=== PATIENT | female | born 1945 | race African-American/Black ===

== ENCOUNTER 2019-01-09 06:51 | Day surgery (SDC) | payer OTHER ==
[2019-01-08 20:04] VITALS: BMI 25.2
[2019-01-09 07:08] LABS: BASO % 0.5 % (0-2.0); EOS % 2.4 % (0-4.5); HEMATOCRIT 25.9 % (32.4-45.2); HEMOGLOBIN 8.6 GM/dL (10.7-15.3); LYMPH % 16.2 % (8-40); MCH 27.9 pg (25.7-33.7); MEAN CELL VOLUME 84.7 fl (80-96); MEAN PLT VOLUME 7.5 fl (7.5-11.1); MONO % 11.7 % (3.8-10.2); NEUT % 69.2 % (42.8-82.8); PLATELET COUNT 256 K/MM3 (134-434); RBC 3.06 M/mm3 (3.60-5.2); RDW 15.1 % (11.6-15.6); WHITE BLOOD COUNT 7.9 K/mm3 (4.0-10.0)
[2019-01-09 07:24] LABS: INR 1.07 (0.83-1.09); PROTHROMBIN TIME (PATIENT) 12.6 SEC (9.7-13.0)
[2019-01-09] MEDS ORDERED: PORTA CATH FLUSH 10 ML IVPUSH PRN (09:49)
[2019-01-09] MEDS ORDERED: MIDAZOLAM HCL 2 MG/2 ML SINGLE DOSE VIAL ONE (09:54)
[2019-01-09 12:12] VITALS: TEMP 98.1
[2019-01-09 13:08] VITALS: BP 119/67; PULSE 67
== END 2019-01-09 12:45 | disposition home or self-care (01) ==
LOC: JRADIR 06:51
PROVIDERS: ATTEND Internal Medicine Hematology & Oncology
PROC: 02HV33Z Insertion of Infusion Device into Superior Vena Cava, Percutaneous Approach (ICD-10-PCS; principal; 2019-01-09)
PROC: B518ZZA Fluoroscopy of Superior Vena Cava, Guidance (ICD-10-PCS; 2019-01-09)
DX: C20 Malignant neoplasm of rectum (principal)
CPT/HCPCS: 36561; 77001; C1788; 36415; 85025; 85610

== ENCOUNTER 2019-01-11 07:14 | Day surgery (SDC) | payer OTHER ==
[2019-01-11] MEDS ORDERED: DEXAMETHASONE SODIUM PHOSPHATE 12 MG in SODIUM CHLORIDE 50 ML IVPB ONE (09:00)
[2019-01-11] MEDS ORDERED: PALONOSETRON HCL 0.25 MG/5 ML VIAL IVPUSH ONE (09:00)
[2019-01-11] MEDS ORDERED: DEXTROSE 5% IV ONE (09:30)
[2019-01-11] MEDS ORDERED: OXALIPLATIN IV ONE (09:30)
[2019-01-11] MEDS ORDERED: WATER IV ONE (09:30)
[2019-01-11 09:42] LABS: BASO % 0.5 % (0-2.0); EOS % 2.1 % (0-4.5); HEMOGLOBIN 8.3 GM/dL (10.7-15.3); LYMPH % 14.5 % (8-40); MCH 28.2 pg (25.7-33.7); MCHC 33.1 g/dl (32.0-36.0); MEAN CELL VOLUME 85.2 fl (80-96); MEAN PLT VOLUME 8.7 fl (7.5-11.1); MONO % 8.6 % (3.8-10.2); NEUT % 74.3 % (42.8-82.8); PLATELET COUNT 288 K/MM3 (134-434); RBC 2.94 M/mm3 (3.60-5.2); RDW 15.4 % (11.6-15.6); WHITE BLOOD COUNT 6.6 K/mm3 (4.0-10.0)
[2019-01-11 10:10] LABS: ALBUMIN 3.1 g/dl (3.4-5.0); BILIRUBIN,DIRECT 0.2 mg/dL (0.0-0.2); BILIRUBIN,TOTAL 0.4 mg/dL (0.2-1); CALCIUM 9.1 mg/dL (8.5-10.1); MAGNESIUM 1.4 mg/dL (1.8-2.4); TOT PROT 6.9 g/dl (6.4-8.2)
[2019-01-11] MEDS ORDERED: MAGNESIUM SULF 50% (8.12 MEQ/2 ML-1 GM VIAL) IVPB ONE (11:00)
[2019-01-11 18:20] VITALS: PULSE 59; TEMP 97.8
[2019-01-11 18:23] VITALS: BP 146/78
[2019-01-11] MEDS ORDERED: PORTA CATH FLUSH 10 ML IVPUSH ONE (18:23)
== END 2019-01-11 19:35 | disposition home or self-care (01) ==
LOC: JONCCHEMO 07:14 → J7W 10:13 → JONCCHEMO 19:35
PROVIDERS: ATTEND Internal Medicine Hematology & Oncology
DX: Z51.11 Encounter for antineoplastic chemotherapy (principal); C20 Malignant neoplasm of rectum
CPT/HCPCS: 36415; 36430; 80053; 80076; 83735; 85025; 86850; 86900; 86901; 86922; 96367; 96375; 96413; 96415; 96417; J2469; J9263; P9038; P9058

== ENCOUNTER 2019-01-24 07:14 | Day surgery (SDC) | payer OTHER ==
[2019-01-24] MEDS ORDERED: TBO-FILGRASTIM 480 MCG/0.8 ML DISP.SYRIN SQ ONE (10:00)
[2019-01-24] MEDS ORDERED: CYANOCOBALAMIN (VITAMIN B-12) 1000 MCG/1 ML VIAL IM ONE (10:00)
[2019-01-24] MEDS ORDERED: FERRIC CARBOXYMALTOSE 750 MG in SODIUM CHLORIDE 250 ML IVPB ONE (10:00)
[2019-01-24] MEDS ORDERED: EPOETIN ALFA 20,000 UNIT/1 ML VIAL SQ ONE (10:00)
[2019-01-24 10:24] LABS: BASO % 0.7 % (0-2.0); EOS % 1.9 % (0-4.5); HEMATOCRIT 28.1 % (32.4-45.2); HEMOGLOBIN 9.2 GM/dL (10.7-15.3); LYMPH % 16.4 % (8-40); MCH 28.1 pg (25.7-33.7); MCHC 32.6 g/dl (32.0-36.0); MEAN CELL VOLUME 86.2 fl (80-96); MONO % 9.5 % (3.8-10.2); NEUT % 71.5 % (42.8-82.8); PLATELET COUNT 213 K/MM3 (134-434); RBC 3.26 M/mm3 (3.60-5.2); RDW 14.6 % (11.6-15.6); WHITE BLOOD COUNT 6.1 K/mm3 (4.0-10.0)
[2019-01-24 11:40] LABS: BILIRUBIN,TOTAL 0.4 mg/dL (0.2-1); CALCIUM 8.9 mg/dL (8.5-10.1); MAGNESIUM 1.7 mg/dL (1.8-2.4); POTASSIUM 4.2 mmol/L (3.5-5.1); TOT PROT 6.8 g/dl (6.4-8.2)
[2019-01-24 16:50] VITALS: TEMP 98
[2019-01-24] MEDS ORDERED: PORTA CATH FLUSH 10 ML IVPUSH ONE (16:50)
[2019-01-24 16:51] VITALS: BP 136/67; PULSE 62
== END 2019-01-24 13:30 | disposition home or self-care (01) ==
LOC: JONCNONCHE 07:14 → J7W 11:32 → JONCNONCHE 13:30
PROVIDERS: ATTEND Internal Medicine Hematology & Oncology
PROC: 3E033GC Introduction of Other Therapeutic Substance into Peripheral Vein, Percutaneous Approach (ICD-10-PCS; principal; 2019-01-24)
DX: D50.9 Iron deficiency anemia, unspecified (principal); E11.9 Type 2 diabetes mellitus without complications; I10 Essential (primary) hypertension
CPT/HCPCS: 36415; 80053; 83735; 85025; 96365; 96372; J1439

== ENCOUNTER 2019-01-31 07:06 | Day surgery (SDC) | payer OTHER ==
[2019-01-31] MEDS ORDERED: FERRIC CARBOXYMALTOSE 750 MG in SODIUM CHLORIDE 250 ML IVPB ONE (10:00)
[2019-01-31] MEDS ORDERED: CYANOCOBALAMIN (VITAMIN B-12) 1000 MCG/1 ML VIAL IM ONE (10:00)
[2019-01-31 10:07] LABS: BASO % 0.9 % (0-2.0); HEMOGLOBIN 9.4 GM/dL (10.7-15.3); LYMPH % 23.9 % (8-40); MCHC 32.3 g/dl (32.0-36.0); MEAN CELL VOLUME 89.6 fl (80-96); MEAN PLT VOLUME 7.6 fl (7.5-11.1); MONO % 16.2 % (3.8-10.2); PLATELET COUNT 193 K/MM3 (134-434); RBC 3.23 M/mm3 (3.60-5.2); RDW 15.8 % (11.6-15.6); WHITE BLOOD COUNT 5.2 K/mm3 (4.0-10.0)
[2019-01-31] MEDS ORDERED: DEXAMETHASONE SODIUM PHOSPHATE 12 MG in SODIUM CHLORIDE 50 ML IVPB ONE (11:00)
[2019-01-31] MEDS ORDERED: PALONOSETRON HCL 0.25 MG/5 ML VIAL IVPUSH ONE (11:00)
[2019-01-31] MEDS ORDERED: DEXTROSE 5% IV ONE (11:30)
[2019-01-31] MEDS ORDERED: WATER IV ONE (11:30)
[2019-01-31] MEDS ORDERED: OXALIPLATIN IV ONE (11:30)
[2019-01-31 12:52] LABS: CALCIUM 8.7 mg/dL (8.5-10.1); MAGNESIUM 1.7 mg/dL (1.8-2.4); POTASSIUM 3.8 mmol/L (3.5-5.1)
[2019-01-31 12:53] LABS: ALBUMIN 3.1 g/dl (3.4-5.0); BILIRUBIN,DIRECT 0.2 mg/dL (0.0-0.2); TOT PROT 6.7 g/dl (6.4-8.2)
[2019-01-31 13:25] LABS: BILIRUBIN,TOTAL 0.5 mg/dL (0.2-1)
[2019-01-31] MEDS ORDERED: MAGNESIUM OXIDE 400 MG TABLET (FP) PO ONE (16:15)
[2019-01-31 16:40] VITALS: TEMP 97.7
[2019-01-31] MEDS ORDERED: PORTA CATH FLUSH 10 ML IVPUSH ONE (16:40)
[2019-01-31 16:41] VITALS: BP 133/46; PULSE 50
== END 2019-01-31 18:20 | disposition home or self-care (01) ==
LOC: JONCCHEMO 07:06 → J7W 11:20 → JONCCHEMO 18:20
PROVIDERS: ATTEND Internal Medicine Hematology & Oncology
PROC: 3E04305 Introduction of Other Antineoplastic into Central Vein, Percutaneous Approach (ICD-10-PCS; principal; 2019-01-31)
PROC: 3E0 Administration, Physiological Systems and Anatomical Regions, Introduction (ICD-10-PCS; 2019-01-31)
PROC: 3E0407Z Introduction of Electrolytic and Water Balance Substance into Central Vein, Open Approach (ICD-10-PCS; 2019-01-31)
PROC: 3E023GC Introduction of Other Therapeutic Substance into Muscle, Percutaneous Approach (ICD-10-PCS; 2019-01-31)
DX: Z51.11 Encounter for antineoplastic chemotherapy (principal); C20 Malignant neoplasm of rectum; I10 Essential (primary) hypertension; E78.5 Hyperlipidemia, unspecified; E11.9 Type 2 diabetes mellitus without complications
CPT/HCPCS: 36415; 80048; 80076; 83735; 85025; 96375; 96413; 96415; 96417; J1439; J2469; J9263

== ENCOUNTER 2019-02-21 07:16 | Day surgery (SDC) | payer OTHER ==
[2019-02-21] MEDS ORDERED: DEXAMETHASONE SODIUM PHOSPHATE 12 MG in SODIUM CHLORIDE 50 ML IVPB ONE (09:00)
[2019-02-21] MEDS ORDERED: PALONOSETRON HCL 0.25 MG/5 ML VIAL IVPUSH ONE (09:00)
[2019-02-21] MEDS ORDERED: WATER IV ONE (09:30)
[2019-02-21] MEDS ORDERED: OXALIPLATIN IV ONE (09:30)
[2019-02-21] MEDS ORDERED: DEXTROSE 5% IV ONE (09:30)
[2019-02-21 09:57] LABS: BASO % 0.8 % (0-2.0); EOS % 2.5 % (0-4.5); HEMATOCRIT 28.6 % (32.4-45.2); HEMOGLOBIN 9.6 GM/dL (10.7-15.3); LYMPH % 24.7 % (8-40); MCH 31.4 pg (25.7-33.7); MCHC 33.5 g/dl (32.0-36.0); MEAN CELL VOLUME 93.8 fl (80-96); MEAN PLT VOLUME 8.2 fl (7.5-11.1); MONO % 21.2 % (3.8-10.2); NEUT % 50.8 % (42.8-82.8); PLATELET COUNT 114 K/MM3 (134-434); RBC 3.05 M/mm3 (3.60-5.2); RDW 25.6 % (11.6-15.6); WHITE BLOOD COUNT 3.4 K/mm3 (4.0-10.0)
[2019-02-21 10:28] LABS: BILIRUBIN,DIRECT 0.2 mg/dL (0.0-0.2); BILIRUBIN,TOTAL 0.5 mg/dL (0.2-1); BLOOD UREA NITROGEN 14.2 mg/dL (7-18); CALCIUM 8.3 mg/dL (8.5-10.1); MAGNESIUM 1.8 mg/dL (1.8-2.4); TOT PROT 6.3 g/dl (6.4-8.2)
[2019-02-21 12:04] LABS: ANISOCYTOSIS 2+; MACROCYTOSIS 1+; PLATELET ESTIMATE DECREASED
[2019-02-21 18:17] VITALS: TEMP 98.8
[2019-02-21 18:23] VITALS: BP 156/73; PULSE 53
[2019-02-21] MEDS ORDERED: PORTA CATH FLUSH 10 ML IVPUSH ONE (18:23)
== END 2019-02-21 14:30 | disposition home or self-care (01) ==
LOC: JONCCHEMO 07:16 → J7W 10:06 → JONCCHEMO 14:30
PROVIDERS: ATTEND Internal Medicine Hematology & Oncology
DX: Z51.11 Encounter for antineoplastic chemotherapy (principal); C20 Malignant neoplasm of rectum
CPT/HCPCS: 36415; 80048; 80076; 83735; 85025; 96375; 96413; 96415; J2469; J9263

== ENCOUNTER → 2019-03-14 | Day surgery (SDC) | payer OTHER ==
[~2019-03-14] MED LIST: DEXAMETHASONE SODIUM PHOSPHATE 12 MG in SODIUM CHLORIDE 50 ML IVPB ONE; DEXTROSE 5% IV ONE; OXALIPLATIN IV ONE; PALONOSETRON HCL 0.25 MG/5 ML VIAL IVPUSH ONE; WATER IV ONE
[2019-03-14 08:52] LABS: BASO % 0.8 % (0-2.0); HEMATOCRIT 31.1 % (32.4-45.2); HEMOGLOBIN 10.3 GM/dL (10.7-15.3); LYMPH % 25.6 % (8-40); MCH 32.7 pg (25.7-33.7); MCHC 33.2 g/dl (32.0-36.0); MEAN CELL VOLUME 98.7 fl (80-96); MEAN PLT VOLUME 7.7 fl (7.5-11.1); MONO % 23.9 % (3.8-10.2); NEUT % 46.7 % (42.8-82.8); PLATELET COUNT 99 K/MM3 (134-434); RBC 3.15 M/mm3 (3.60-5.2); RDW 28.5 % (11.6-15.6); WHITE BLOOD COUNT 2.9 K/mm3 (4.0-10.0)
[2019-03-14 09:20] LABS: BILIRUBIN,DIRECT 0.3 mg/dL (0.0-0.2); BILIRUBIN,TOTAL 0.7 mg/dL (0.2-1); BLOOD UREA NITROGEN 11.5 mg/dL (7-18); CALCIUM 8.4 mg/dL (8.5-10.1); CREATININE 1.1 mg/dL (0.55-1.3); POTASSIUM 3.8 mmol/L (3.5-5.1); TOT PROT 6.5 g/dl (6.4-8.2)
[2019-03-14 12:47] LABS: ANISOCYTOSIS 2+; MACROCYTOSIS 1+; OVALOCYTE 1+; PLATELET ESTIMATE DECREASED
== END | disposition home or self-care (01) ==
LOC: JONCCHEMO 07:11
PROVIDERS: ATTEND Internal Medicine Hematology & Oncology
DX: Z53.8 Procedure and treatment not carried out for other reasons (principal)
CPT/HCPCS: 36415; 80048; 80076; 83735; 85025

== ENCOUNTER 2019-03-21 07:22 | Day surgery (SDC) | payer OTHER ==
[2019-03-21 09:14] LABS: BASO % 0.4 % (0-2.0); EOS % 2.6 % (0-4.5); HEMATOCRIT 31.7 % (32.4-45.2); HEMOGLOBIN 10.6 GM/dL (10.7-15.3); LYMPH % 22.2 % (8-40); MCH 33.2 pg (25.7-33.7); MCHC 33.5 g/dl (32.0-36.0); MEAN PLT VOLUME 8.9 fl (7.5-11.1); MONO % 19.7 % (3.8-10.2); NEUT % 55.1 % (42.8-82.8); PLATELET COUNT 84 K/MM3 (134-434); RDW 27.1 % (11.6-15.6); WHITE BLOOD COUNT 3.9 K/mm3 (4.0-10.0)
[2019-03-21 09:31] LABS: BILIRUBIN,DIRECT 0.3 mg/dL (0.0-0.2); BILIRUBIN,TOTAL 0.8 mg/dL (0.2-1); BLOOD UREA NITROGEN 12.2 mg/dL (7-18); CALCIUM 8.6 mg/dL (8.5-10.1); MAGNESIUM 1.9 mg/dL (1.8-2.4); POTASSIUM 3.9 mmol/L (3.5-5.1); TOT PROT 6.7 g/dl (6.4-8.2)
[2019-03-21] MEDS ORDERED: DEXAMETHASONE SODIUM PHOSPHATE 12 MG in SODIUM CHLORIDE 50 ML IVPB ONE (10:00)
[2019-03-21] MEDS ORDERED: amLODIPine BESYLATE 5 MG TABLET (FP) PO ONE (10:00)
[2019-03-21] MEDS ORDERED: PALONOSETRON HCL 0.25 MG/5 ML VIAL IVPUSH ONE (10:00)
[2019-03-21] MEDS ORDERED: OXALIPLATIN IV ONE (10:30)
[2019-03-21] MEDS ORDERED: WATER IV ONE (10:30)
[2019-03-21] MEDS ORDERED: DEXTROSE 5% IV ONE (10:30)
[2019-03-21 13:43] LABS: ANISOCYTOSIS 1+; MACROCYTOSIS 1+; PLATELET ESTIMATE DECREASED
[2019-03-21 14:44] VITALS: TEMP 97.9
[2019-03-21] MEDS ORDERED: PORTA CATH FLUSH 10 ML IVPUSH ONE (14:44)
[2019-03-21 14:45] VITALS: BP 156/60; PULSE 55
== END 2019-03-21 13:30 | disposition home or self-care (01) ==
LOC: JONCCHEMO 07:22 → J7W 09:51 → JONCCHEMO 13:30
PROVIDERS: ATTEND Internal Medicine Hematology & Oncology
DX: Z51.11 Encounter for antineoplastic chemotherapy (principal); C20 Malignant neoplasm of rectum
CPT/HCPCS: 36415; 80048; 80076; 83735; 85025; 96375; 96413; 96415; J2469; J9263

== ENCOUNTER 2019-04-11 07:16 | Day surgery (SDC) | payer OTHER ==
[2019-04-11 09:20] LABS: BASO % 0.5 % (0-2.0); EOS % 2.6 % (0-4.5); HEMATOCRIT 33.3 % (32.4-45.2); HEMOGLOBIN 11.1 GM/dL (10.7-15.3); LYMPH % 26.3 % (8-40); MCH 33.9 pg (25.7-33.7); MCHC 33.3 g/dl (32.0-36.0); MEAN CELL VOLUME 101.9 fl (80-96); MEAN PLT VOLUME 7.2 fl (7.5-11.1); MONO % 19.1 % (3.8-10.2); NEUT % 51.5 % (42.8-82.8); PLATELET COUNT 93 K/MM3 (134-434); RBC 3.26 M/mm3 (3.60-5.2); RDW 25.2 % (11.6-15.6); WHITE BLOOD COUNT 3.3 K/mm3 (4.0-10.0)
[2019-04-11] MEDS ORDERED: PALONOSETRON HCL 0.25 MG/5 ML VIAL IVPUSH ONE (09:30)
[2019-04-11] MEDS ORDERED: DEXAMETHASONE SODIUM PHOSPHATE 12 MG in SODIUM CHLORIDE 50 ML IVPB ONE (09:30)
[2019-04-11 09:46] LABS: BLOOD UREA NITROGEN 13.8 mg/dL (7-18); CALCIUM 8.8 mg/dL (8.5-10.1); CREATININE 1.1 mg/dL (0.55-1.3); MAGNESIUM 1.7 mg/dL (1.8-2.4); POTASSIUM 3.8 mmol/L (3.5-5.1)
[2019-04-11] MEDS ORDERED: OXALIPLATIN IV ONE ×2 (10:00→11:00)
[2019-04-11] MEDS ORDERED: DEXTROSE 5% IV ONE ×2 (10:00→11:00)
[2019-04-11] MEDS ORDERED: WATER IV ONE ×2 (10:00→11:00)
[2019-04-11] MEDS ORDERED: MAGNESIUM SULF 50% (8.12 MEQ/2 ML-1 GM VIAL) IVPB ONE (10:45)
[2019-04-11] MEDS ORDERED: CYANOCOBALAMIN (VITAMIN B-12) 1000 MCG/1 ML VIAL IM ONE (10:45)
[2019-04-11 12:27] LABS: ANISOCYTOSIS 2+; MACROCYTOSIS 1+; PLATELET ESTIMATE DECREASED
[2019-04-11] MEDS ORDERED: PORTA CATH FLUSH 10 ML IVPUSH ONE (15:19)
[2019-04-11 15:20] VITALS: TEMP 97.7
[2019-04-26 19:10] VITALS: BP 152/75; PULSE 58
== END 2019-04-11 15:23 | disposition home or self-care (01) ==
LOC: JONCCHEMO 07:16 → J7W 10:22 → JONCCHEMO 15:23
PROVIDERS: ATTEND Internal Medicine Hematology & Oncology
DX: Z51.11 Encounter for antineoplastic chemotherapy (principal); C20 Malignant neoplasm of rectum
CPT/HCPCS: 36415; 80048; 83735; 85025; 96375; 96413; 96415; 96417; J2469; J9263

== ENCOUNTER 2019-05-02 07:08 | Day surgery (SDC) | payer OTHER ==
[2019-05-02] MEDS ORDERED: PALONOSETRON HCL 0.25 MG/5 ML VIAL IVPUSH ONE (09:30)
[2019-05-02] MEDS ORDERED: DEXAMETHASONE SODIUM PHOSPHATE 12 MG in SODIUM CHLORIDE 50 ML IVPB ONE (09:30)
[2019-05-02 09:54] LABS: BASO % 0.4 % (0-2.0); EOS % 3.3 % (0-4.5); HEMATOCRIT 34.1 % (32.4-45.2); HEMOGLOBIN 11.5 GM/dL (10.7-15.3); LYMPH % 31.3 % (8-40); MCHC 33.8 g/dl (32.0-36.0); MEAN CELL VOLUME 103.6 fl (80-96); MEAN PLT VOLUME 7.9 fl (7.5-11.1); MONO % 17.9 % (3.8-10.2); NEUT % 47.1 % (42.8-82.8); PLATELET COUNT 86 K/MM3 (134-434); RBC 3.29 M/mm3 (3.60-5.2); RDW 20.6 % (11.6-15.6); WHITE BLOOD COUNT 2.7 K/mm3 (4.0-10.0)
[2019-05-02] MEDS ORDERED: OXALIPLATIN 175 MG in DEXTROSE 5%-WATER - 500 ML IV ONE (10:00)
[2019-05-02 10:43] LABS: BILIRUBIN,DIRECT 0.3 mg/dL (0.0-0.2); BLOOD UREA NITROGEN 13.3 mg/dL (7-18); CREATININE 1.1 mg/dL (0.55-1.3); MAGNESIUM 1.8 mg/dL (1.8-2.4); POTASSIUM 3.9 mmol/L (3.5-5.1); TOT PROT 6.9 g/dl (6.4-8.2)
[2019-05-02 10:49] LABS: ANISOCYTOSIS 1+; MACROCYTOSIS 1+; PLATELET ESTIMATE DECREASED
[2019-05-02] MEDS ORDERED: OXALIPLATIN IV ONE ×2 (10:51→11:30)
[2019-05-02] MEDS ORDERED: DEXTROSE 5% IV ONE ×2 (10:51→11:30)
[2019-05-02] MEDS ORDERED: WATER IV ONE ×2 (10:51→11:30)
[2019-05-02] MEDS ORDERED: SODIUM CHLORIDE IVPB ONE (11:15)
[2019-05-02] MEDS ORDERED: DEXAMETHASONE SODIUM PHOSPHATE IVPB ONE (11:15)
[2019-05-02] MEDS ORDERED: DIPHENHYDRAMINE IVPB ONE (11:15)
[2019-05-02 15:28] VITALS: BP 153/82; PULSE 60; TEMP 98
[2019-05-02] MEDS ORDERED: PORTA CATH FLUSH 10 ML IVPUSH ONE (15:28)
== END 2019-05-02 15:40 | disposition home or self-care (01) ==
LOC: JONCCHEMO 07:08 → J7W 11:16 → JONCCHEMO 15:40
PROVIDERS: ATTEND Internal Medicine Hematology & Oncology
DX: Z51.11 Encounter for antineoplastic chemotherapy (principal); C20 Malignant neoplasm of rectum
CPT/HCPCS: 36415; 80048; 80076; 82378; 82607; 82728; 82747; 82784; 83735; 85014; 85025; 96367; 96375; 96413; 96415; J2469; J9263

== ENCOUNTER 2019-05-23 09:04 | Day surgery (SDC) | payer OTHER ==
[2019-05-23] MEDS ORDERED: PALONOSETRON HCL 0.25 MG/5 ML VIAL IVPUSH ONE (10:00)
[2019-05-23] MEDS ORDERED: DEXAMETHASONE SODIUM PHOSPHATE 12 MG in SODIUM CHLORIDE 50 ML IVPB ONE (10:00)
[2019-05-23 10:12] LABS: BASO % 0.3 % (0-2.0); EOS % 2.7 % (0-4.5); HEMATOCRIT 33.7 % (32.4-45.2); HEMOGLOBIN 11.2 GM/dL (10.7-15.3); LYMPH % 30.3 % (8-40); MCH 34.7 pg (25.7-33.7); MCHC 33.4 g/dl (32.0-36.0); MEAN CELL VOLUME 104.2 fl (80-96); MEAN PLT VOLUME 7.8 fl (7.5-11.1); MONO % 19.8 % (3.8-10.2); NEUT % 46.9 % (42.8-82.8); PLATELET COUNT 86 K/MM3 (134-434); RBC 3.23 M/mm3 (3.60-5.2); RDW 18.8 % (11.6-15.6); WHITE BLOOD COUNT 2.8 K/mm3 (4.0-10.0)
[2019-05-23] MEDS ORDERED: DEXTROSE 5% IV ONE (10:30)
[2019-05-23] MEDS ORDERED: WATER IV ONE (10:30)
[2019-05-23] MEDS ORDERED: OXALIPLATIN IV ONE (10:30)
[2019-05-23 10:58] LABS: ALBUMIN 2.8 g/dl (3.4-5.0); BILIRUBIN,DIRECT 0.3 mg/dL (0.0-0.2); BILIRUBIN,TOTAL 0.9 mg/dL (0.2-1); BLOOD UREA NITROGEN 11.8 mg/dL (7-18); CALCIUM 8.9 mg/dL (8.5-10.1); MAGNESIUM 1.9 mg/dL (1.8-2.4); POTASSIUM 3.8 mmol/L (3.5-5.1); TOT PROT 6.7 g/dl (6.4-8.2)
[2019-05-23 16:29] VITALS: BP 146/64; PULSE 46; TEMP 98.1
[2019-05-23] MEDS ORDERED: PORTA CATH FLUSH 10 ML IVPUSH ONE (16:29)
== END 2019-05-23 15:00 | disposition home or self-care (01) ==
LOC: JONCCHEMO 09:04 → J7W 11:16 → JONCCHEMO 15:00
PROVIDERS: ATTEND Internal Medicine Hematology & Oncology
DX: Z51.11 Encounter for antineoplastic chemotherapy (principal); C20 Malignant neoplasm of rectum
CPT/HCPCS: 36415; 80048; 80076; 83735; 85025; 96367; 96375; 96413; 96415; J2469; J9263

== ENCOUNTER 2019-06-13 07:14 | Day surgery (SDC) | payer OTHER ==
[2019-06-13] MEDS ORDERED: DEXAMETHASONE SODIUM PHOSPHATE 12 MG in SODIUM CHLORIDE 50 ML IVPB ONE (09:30)
[2019-06-13] MEDS ORDERED: PALONOSETRON HCL 0.25 MG/5 ML VIAL IVPUSH ONE (09:30)
[2019-06-13] MEDS ORDERED: OXALIPLATIN 100 MG, OXALIPLATIN 30 MG in DEXTROSE 5%-WATER - 500 ML IV ONE (10:00)
[2019-06-13 10:32] LABS: BASO % 0.3 % (0-2.0); EOS % 2.4 % (0-4.5); HEMATOCRIT 33.1 % (32.4-45.2); HEMOGLOBIN 11.1 GM/dL (10.7-15.3); LYMPH % 24.4 % (8-40); MCHC 33.5 g/dl (32.0-36.0); MEAN CELL VOLUME 104.4 fl (80-96); MEAN PLT VOLUME 8.5 fl (7.5-11.1); MONO % 20.2 % (3.8-10.2); NEUT % 52.7 % (42.8-82.8); PLATELET COUNT 93 K/MM3 (134-434); RBC 3.17 M/mm3 (3.60-5.2); RDW 19.4 % (11.6-15.6); WHITE BLOOD COUNT 3.1 K/mm3 (4.0-10.0)
[2019-06-13 11:07] LABS: ALBUMIN 2.7 g/dl (3.4-5.0); BLOOD UREA NITROGEN 13.5 mg/dL (7-18); CALCIUM 8.7 mg/dL (8.5-10.1); MAGNESIUM 1.8 mg/dL (1.8-2.4); TOT PROT 6.6 g/dl (6.4-8.2)
[2019-06-13 13:02] LABS: ANISOCYTOSIS 1+; MACROCYTOSIS 1+; OVALOCYTE 1+; PLATELET ESTIMATE DECREASED
[2019-06-13 15:19] VITALS: TEMP 98
[2019-06-13] MEDS ORDERED: PORTA CATH FLUSH 10 ML IVPUSH ONE (15:19)
[2019-06-13 15:20] VITALS: BP 150/57; PULSE 53
== END 2019-06-13 14:45 | disposition home or self-care (01) ==
LOC: JONCCHEMO 07:14 → J7W 11:25 → JONCCHEMO 14:45
PROVIDERS: ATTEND Internal Medicine Hematology & Oncology
PROC: 3E04305 Introduction of Other Antineoplastic into Central Vein, Percutaneous Approach (ICD-10-PCS; principal; 2019-06-13)
PROC: 3E043GC Introduction of Other Therapeutic Substance into Central Vein, Percutaneous Approach (ICD-10-PCS; 2019-06-13)
DX: Z51.11 Encounter for antineoplastic chemotherapy (principal); C20 Malignant neoplasm of rectum
CPT/HCPCS: 36415; 80053; 83735; 85025; 96375; 96413; 96415; J2469; J9263

== ENCOUNTER 2019-06-25 16:58 | Inpatient (IN) | payer OTHER ==
--- NOTE | 2019-06-25 17:29 | PDOC ---
History of Present Illness - General Chief Complaint: Pain, Acute Stated Complaint: REF BY DOCTOR Time Seen by Provider: 06/25/19 17:17 - History of Present Illness Initial Comments: Ms. Rockwell is a 74 y/o female with PMH significant for rectal CA, DM, HTN, sent in by her oncologist Dr. Louis today for abdominal distension. Patient reports that she vomited x1 yesterday NBNB. Reports that she has been having regular bowel movements, and had two today. Denies blood in the stool. Denies abdominal pain. Currently on oral chemo for rectal CA. Unsure of her exact chemo regimen. Follows closely with Dr. Louis. Past History - Past Medical History Allergies/Adverse Reactions: Allergies Allergy/AdvReac Type Severity Reaction Status Date / Time No Known Allergies Allergy Verified 01/08/19 20:04 Home Medications: Ambulatory Orders Carvedilol [Coreg -] 25 mg PO BID 01/08/19 Famotidine [Pepcid] 40 mg PO DAILY 01/08/19 Hydrochlorothiazide [Hctz -] 12.5 mg PO DAILY 01/08/19 Methimazole [Tapazole] 5 mg PO BID 01/08/19 Oxybutynin Chloride [Ditropan Xl] 10 mg PO DAILY 01/08/19 Potassium Chloride [Klor-Con M10] 10 meq PO DAILY 01/08/19 Metformin HCl [Glucophage] 500 tablet PO BID 06/26/19 Cancer: Yes (RECTAL CA) COPD: No HTN: Yes Other medical history: RECTAL [id number] CATH - Surgical History Lung Surgery: No - Immunization History Immunization Up to Date: No - Psycho Social/Smoking Cessation Hx Smoking History: Never smoked Have you smoked in the past 12 months: No Information on smoking cessation initiated: No Hx Alcohol Use: No Drug/Substance Use Hx: No Review of Systems - Review of Systems Comments:: ROS GENERAL/CONSTITUTIONAL: No fever or chills. No weakness._ HEAD, EYES, EARS, NOSE AND THROAT: No change in vision. No change in hearing. No sore throat._ CARDIOVASCULAR: No chest pain or shortness of breath_ RESPIRATORY: Denies cough, hemoptysis_ GASTROINTESTINAL: Denies nausea. Reports vomiting x1. Denies diarrhea or constipation. Denies abdominal pain. GENITOURINARY: No dysuria, frequency, or change in urination._ MUSCULOSKELETAL: No joint or muscle swelling or pain. No neck or back pain._ SKIN: No rash_ NEUROLOGIC: No headache, vertigo, loss of consciousness, or change in strength/ sensation._ ENDOCRINE: No increased thirst. No abnormal weight change_ HEMATOLOGIC/LYMPHATIC: No anemia, easy bleeding, or history of blood clots._ ALLERGIC/IMMUNOLOGIC: No hives or skin allergy._ *Physical Exam - Vital Signs Last Vital Signs Temp Pulse Resp BP Pulse Ox 97.9 F 67 16 131/47 L 98 06/25/19 17:05 06/25/19 17:05 06/25/19 17:05 06/25/19 17:05 06/25/19 17:05 - Physical Exam Comments: GENERAL: Awake, alert, and oriented to person/place/time, in no acute distress_ HEAD: No signs of trauma, normocephalic, atraumatic _ EYES: PERRLA, EOMI, sclera anicteric, conjunctiva clear_ ENT: Hearing grossly normal, nares patent, oropharynx clear without exudates. No uvular deviation. Moist mucosa_ NECK: Normal ROM, supple, no lymphadenopathy, JVD, or masses_ LUNGS: No distress, speaks in full sentences, clear to auscultation bilaterally _ HEART: Regular rate and rhythm, normal S1 and S2, no murmurs appreciated, peripheral pulses normal and equal bilaterally._ ABDOMEN: Soft, nontender. Hypertympanic. Distended. No guarding, no rebound. No masses_ RECTAL: Normal sphincter tone, no masses appreciated, rectal vault empty, no stool appreciated EXTREMITIES: Normal inspection, Normal range of motion, no edema. No clubbing or cyanosis_ NEUROLOGICAL: Cranial nerves II through XII grossly intact. Normal speech, normal gait, no focal sensorimotor deficits _ SKIN: Warm, Dry, normal turgor, no rashes or lesions noted_ ED Treatment Course - LABORATORY CBC & Chemistry Diagram: 06/26/19 11:05 06/26/19 11:05 Medical Decision Making - Medical Decision Making 06/25/19 17:39 74F with hx of rectal CA, DM, HTN, presenting with 2 days of abdominal distension. Currently on oral chemo. Reports regular BM. Vomiting x1. Abdomen is distended and hypertympanic. DDx is broad and includes SBO vs large bowel obstruction vs ascities. Obtain CBC, CMP, EKG, trop, lipase, lactic, CT abd/pelv w/ contrast, type and screen. 06/25/19 19:08 Pt signed out to Dr. Delgado. Discharge - Discharge Information Problems reviewed: Yes Clinical Impression/Diagnosis: Ascites, Bowel obstruction Condition: Stable - Follow up/Referral - Patient Discharge Instructions - Post Discharge Activity
[2019-06-25] MEDS ORDERED: SODIUM CHLORIDE 0.9% 500 ML INFUS.BAG IV ONE (18:17)
[2019-06-25 18:56] LABS: BASO % 0.2 % (0-2.0); EOS % 0.2 % (0-4.5); HEMATOCRIT 35.3 % (32.4-45.2); HEMOGLOBIN 11.8 GM/dL (10.7-15.3); LYMPH % 11.6 % (8-40); MCHC 33.5 g/dl (32.0-36.0); MEAN CELL VOLUME 104.5 fl (80-96); MEAN PLT VOLUME 9.5 fl (7.5-11.1); MONO % 10.4 % (3.8-10.2); NEUT % 77.6 % (42.8-82.8); PLATELET COUNT 152 K/MM3 (134-434); RBC 3.38 M/mm3 (3.60-5.2); RDW 20.4 % (11.6-15.6); WHITE BLOOD COUNT 8.4 K/mm3 (4.0-10.0)
[2019-06-25] MEDS ORDERED: ACETAMINOPHEN 1000 MG/100 ML VIAL (NON FORMULARY) IVPB ONE (19:04)
--- NOTE | 2019-06-25 19:04 | PDOC ---
*Physical Exam - Vital Signs Last Vital Signs Temp Pulse Resp BP Pulse Ox 97.9 F 67 16 131/47 L 98 06/25/19 17:05 06/25/19 17:05 06/25/19 17:05 06/25/19 17:05 06/25/19 17:05 ED Treatment Course - LABORATORY CBC & Chemistry Diagram: 06/25/19 18:40 06/25/19 19:51 - ADDITIONAL ORDERS Additional order review: Laboratory Results 06/25/19 17:38 Lactic Acid 1.7 06/25/19 18:40 RBC 3.38 L MCV 104.5 H MCHC 33.5 RDW 20.4 H MPV 9.5 Neutrophils % 77.6 D Lymphocytes % 11.6 D Monocytes % 10.4 H Eosinophils % 0.2 D Basophils % 0.2 - Medications Given in the ED: ED Medications Discontinued Medications Generic Name Dose Route Start Last Admin Trade Name Freq PRN Reason Stop Dose Admin Sodium Chloride 1,000 ml 06/25/19 18:17 06/25/19 18:57 Normal Saline - IV 06/25/19 18:18 1,000 ml ONCE ONE Administration Medical Decision Making - Medical Decision Making Pt signed out to me by prior day ED resident, see prior note. 74 year old female with PMH rectal cancer (on oral chemo, circumferential 16 cm mass, mets to liver/adrenals), HTN, DM presented to ED for abdominal distension x2 days, reported vomiting one time prior to today. Last BM today, reported normal, denied blood. Pt reported last ate soup before 1200 today. On prior resident examination pt had a distended abdomen with tympany, reported rectal exam revealed no masses, no stool in vault, no gross blood on gloved finger. Initial Vital Signs Temp Pulse Resp BP Pulse Ox 97.9 F 67 16 131/47 L 98 06/25/19 17:05 06/25/19 17:05 06/25/19 17:05 06/25/19 17:05 06/25/19 17:05 Afebrile. No tachycardia. No tachypnea. Mild diastolic hypotension. No hypoxia on room air. Labs ordered: CBC, CMP, Lipase, Lactate Imaging ordered: CT abdomen/pelvis ED Medications Discontinued Medications Generic Name Dose Route Start Last Admin Trade Name Freq PRN Reason Stop Dose Admin Sodium Chloride 1,000 ml 06/25/19 18:17 06/25/19 18:57 Normal Saline - IV 06/25/19 18:18 1,000 ml ONCE ONE Administration 06/25/19 19:33 CBC WBC 8.4 K/mm3 (4.0-10.0) 06/25/19 18:40 RBC 3.38 M/mm3 (3.60-5.2) L 06/25/19 18:40 Hgb 11.8 GM/dL (10.7-15.3) 06/25/19 18:40 Hct 35.3 % (32.4-45.2) 06/25/19 18:40 MCV 104.5 fl (80-96) H 06/25/19 18:40 MCH 35.0 pg (25.7-33.7) H 06/25/19 18:40 MCHC 33.5 g/dl (32.0-36.0) 06/25/19 18:40 RDW 20.4 % (11.6-15.6) H 06/25/19 18:40 Plt Count 152 K/MM3 (134-434) D 06/25/19 18:40 MPV 9.5 fl (7.5-11.1) 06/25/19 18:40 Absolute Neuts (auto) 6.5 K/mm3 (1.5-8.0) 06/25/19 18:40 Neutrophils % 77.6 % (42.8-82.8) D 06/25/19 18:40 Lymphocytes % 11.6 % (8-40) D 06/25/19 18:40 Monocytes % 10.4 % (3.8-10.2) H 06/25/19 18:40 Eosinophils % 0.2 % (0-4.5) D 06/25/19 18:40 Basophils % 0.2 % (0-2.0) 06/25/19 18:40 Nucleated RBC % 0 % (0-0) 06/25/19 18:40 No leukocytosis. No anemia. 06/25/19 19:42 Lab reported CMP hemolyzed. Will redraw. 06/25/19 20:32 CMP Sodium 139 mmol/L (136-145) 06/25/19 19:51 Potassium 4.3 mmol/L (3.5-5.1) 06/25/19 19:51 Chloride 109 mmol/L (98-107) H 06/25/19 19:51 Carbon Dioxide 22 mmol/L (21-32) 06/25/19 19:51 Anion Gap 8 MMOL/L (8-16) 06/25/19 19:51 BUN 22.1 mg/dL (7-18) H 06/25/19 19:51 Creatinine 1.1 mg/dL (0.55-1.3) 06/25/19 19:51 Est GFR (CKD-EPI)AfAm 58.09 06/25/19 19:51 Est GFR (CKD-EPI)NonAf 50.12 06/25/19 19:51 Random Glucose 141 mg/dL (74-106) H 06/25/19 19:51 Lactic Acid 1.7 mmol/L (0.4-2.0) 06/25/19 17:38 Calcium 8.1 mg/dL (8.5-10.1) L 06/25/19 19:51 Total Bilirubin 1.7 mg/dL (0.2-1) H 06/25/19 19:51 AST 41 U/L (15-37) H 06/25/19 19:51 ALT 23 U/L (13-61) 06/25/19 19:51 Alkaline Phosphatase 83 U/L (45-117) 06/25/19 19:51 Creatine Kinase 101 U/L (26-192) 06/25/19 19:51 Troponin I < 0.02 ng/ml (0.00-0.05) 06/25/19 19:51 Total Protein 6.6 g/dl (6.4-8.2) 06/25/19 19:51 Albumin 2.6 g/dl (3.4-5.0) L 06/25/19 19:51 Lipase 53 U/L (73-393) L 06/25/19 19:51 06/25/19 22:26 CT report: Name: JEMIMA LÓPEZ DEPARTMENT OF RADIOLOGY Phys: Eliseo Beckett RESIDENT : 1945 Age: 74 Sex: F [facility] Acct: [id number] Loc: [address] Exam Date: 06/25/19 Status: LIBAN Foley [id number] Unit Number: [id number] EXAM#: TYPE/EXAM: RESULT: [id number] CT/ABDOMEN PELVIS CT WITH CONTR Abdomen and pelvis CT with contrast Clinical information: abdominal distention multiplanar imaging was performed following the intravenous administration of nonionic contrast. Enteric contrast was not administered. In comparison to a prior CT exam of 05/15/2019 interval increased abdominal and pelvic ascites is noted which currently appears at least moderate in volume. Development of trace bilateral pleural effusions is seen. There is increased concentric subcutaneous edema along the abdomen and pelvis. Increased colonic distention is seen with associated fecal retention. As on the prior study there is possible focal concentric wall thickening within the lower third of the sigmoid colon possibly representing an obstructing neoplastic lesion. The remainder of the exam demonstrates no definite interval change. Concentric rectal wall thickening is again noted. No gross small bowel pathology is identified. Multiple small left and right hepatic lobe lesions are noted suggestive of metastatic neoplastic disease. Note is again made of several enlarged left periaortic retroperitoneal lymph nodes with a 1.1 cm short axis diameter. Note is again made of a 4.5 x 2.3 cm fluid structure within the left lower pelvis posteriorly which may be intrauterine. Mild splenomegaly (13 cm length). The pancreas, gallbladder, adrenal glands and kidneys demonstrate no discrete pathology. Incidental bilateral renal cysts. There is no aortic aneurysm. No gross CT evidence of acute appendicitis or diverticulitis. The osseous structures demonstrate no obvious CT evidence of acute pathology or neoplastic disease. No evidence of pneumoperitoneum. Bibasilar discoid atelectasis. IMPRESSION: In comparison to a CT exam of 05/15/2019 there is increased abdominal and pelvic ascites which is currently at least moderate in volume. Interval development of trace bilateral pleural effusions is seen. There is increased concentric subcutaneous edema along the abdomen and pelvis. Increased colonic distention is noted. As on the prior study there is possible focal concentric wall thickening within the lower third of the sigmoid colon possibly representing an obstructing neoplastic lesion. Additional evaluation utilizing colonoscopy or barium enema may be considered. The remainder of the exam demonstrates no obvious interval change. Nonspecific concentric rectal wall thickening. Multiple hepatic lesions suggestive of neoplastic disease. Retroperitoneal lymphadenopathy. Mild splenomegaly. 4.5 x 2.3 cm fluid structure within the left lower pelvis posteriorly which may be intrauterine. Reported By: Jonathon Gar MD 06/25/191 Dr. Louis paged. 06/25/19 22:32 Results explained to patient. She reported she would prefer to be discharged, denied abdominal pain, denied nausea, denied vomiting. Pt informed Dr. Louis will be called for update and recs. Pt reported even if Dr. Louis suggests admission she would like to go home. 22:41 Dr. Louis recs admission, surgical consult, GI consult - specifically asked for Dr. Carver and Dr. Moore. Dr. Carver paged. Pt informed, and is ammenable to admission. 06/25/19 22:[address] Carver, who agreed with admission, advised NPO and fleet enema. Discharge - Discharge Information Problems reviewed: Yes Clinical Impression/Diagnosis: Ascites, Bowel obstruction Condition: Stable - Admission Yes - Follow up/Referral Referrals: Missy Segura MD [Primary Care Provider] - - Patient Discharge Instructions - Post Discharge Activity
[2019-06-25] MEDS ORDERED: ACETAMINOPHEN INJECTION 100 ML IVPB ONE (19:51)
[2019-06-25 20:28] LABS: ALBUMIN 2.6 g/dl (3.4-5.0); ALK PHOS 83 U/L (45-117); ANION GAP 8 MMOL/L (8-16); BILIRUBIN,TOTAL 1.7 mg/dL (0.2-1); BLOOD UREA NITROGEN 22.1 mg/dL (7-18); CALCIUM 8.1 mg/dL (8.5-10.1); CHLORIDE 109 mmol/L (98-107); CO2 22 mmol/L (21-32); CREATININE 1.1 mg/dL (0.55-1.3); GLUCOSE,RANDOM 141 mg/dL (74-106); LIPASE 53 U/L (73-393); POTASSIUM 4.3 mmol/L (3.5-5.1); SGOT/AST 41 U/L (15-37); SGPT/ALT 23 U/L (13-61); SODIUM 139 mmol/L (136-145); TOT PROT 6.6 g/dl (6.4-8.2)
--- NOTE | 2019-06-25 22:29 | PDOC ---
Documentation entered by Sharmila Cervantes SCRIBE, acting as scribe for Christiane Bradley MD. Christiane Bradley MD: This documentation has been prepared by the Helen zarate Brenda, SCRIBE, under my direction and personally reviewed by me in its entirety. I confirm that the documentation accurately reflects all work, treatment, procedures, and medical decision making performed by me. Attending Attestation - Resident Resident Name: Eliseo Beckett - ED Attending Attestation I have performed the following: I have examined & evaluated the patient, The case was reviewed & discussed with the resident, I agree w/resident's findings & plan, Exceptions are as noted - HPI HPI: 06/25/19 19:24 The patient is a year 74 old female, with a significant PMH of rectal cancer, DM and HTN who presents to the emergency department, sent in by her oncologist with a distended abdomen. Patient endorses 1 episode of NBNB vomiting yesterday , and she reports she has been having regular bowel movements. (2 BM today). Patient is currently on oral chemo for rectal cancer. The patient denies chest pain, shortness of breath, headache and dizziness. Denies fever, chills, abdominal pain, nausea, vomiting, diarrhea and constipation. Allergies: NKA Past surgical history: None reported Social history: No tobacco use history. PCP: [facility]ologist: Dr. Louis - Physicial Exam PE: 06/26/19 01:[address] Blanka Delgado 's physical exam - Medical Decision Making 06/26/19 01:1 74-year-old female with a history of rectal cancer on hormonal oral chemotherapy sent by Dr. Segura to view for abdominal distention and vomiting. CAT scan was ordered to rule out small bowel obstruction Results of CAT scan was negative for any small bowel obstruction or acute surgical emergency CBC was unremarkable Chemistries unremarkable with exception of glucose of 141And a total bili of 1.7. Troponin was negative Impression CAT scan shows an increase abdominal and pelvic ascites and there is interval development of trace bilateral pleural effusions since her CAT scan on May 15 of this year. Increased colonic distention is noted. As on the prior study there is possible focal concentric wall thickening within the third lower third of the sigmoid colon. There are multiple hepatic lesions suggestive of neoplastic disease and retroperitoneal lymph lymphadenopathy. There is a 4.5 x 2.3 cm fluid structure within the left lower pelvis posteriorly pt has colorectal cancer receiving chemotherapy with increasing abd distention was admitted by her enterprise account executive for further care 06/26/19 01:26
[2019-06-25] MEDS ORDERED: SODIUM CHLORIDE 1,000 ML IV STA (22:42)
[2019-06-25] MEDS ORDERED: SODIUM PHOSPHATE/NA BIPHOS 133 ML ENEMA PR ONE (22:54)
--- NOTE | 2019-06-26 01:13 | PN ---
Teaching Attending Note Name of Resident: Marnie Harrell ATTENDING PHYSICIAN STATEMENT I saw and evaluated the patient. I reviewed the resident's note and discussed the case with the resident. I agree with the resident's findings and plan as documented. SUBJECTIVE: 74 old female, with a significant PMH of rectal cancer That was diagnosed earlier in 2018 Via colonoscopy, uncertain stage, follows with Dr. Louis, currently undergoing chemotherapy every 2 weeks, on oral chemo for rectal cancer , was sent in from clinic by her oncologist for development of abdominal distention. Patient does not complain of significant abdominal pain and appears quite comfortable. She does note that her abdominal distention and worsening abdominal distention however. She is having bowel movements, last one in the ER after getting enema. She is also passing gas. Reported some nausea but no vomiting. OBJECTIVE: Last Vital Signs Temp Pulse Resp BP Pulse Ox 98.5 F 68 17 123/46 L 100 06/25/19 19:13 06/25/19 19:13 06/25/19 19:13 06/25/19 19:13 06/25/19 19:13 GENERAL: Well developed, well nourished. Awake and alert. No acute distress. HEENT: Normocephalic, atraumatic. PERRLA, EOMI. No conjunctival pallor. Sclera are non- icteric. Moist mucous membranes. Oropharynx is clear. NECK: Supple. Full ROM. No JVD. Carotid pulses 2+ and symmetric, without bruits. No thyromegaly. No lymphadenopathy. CARDIOVASCULAR: Regular rate and rhythm. No murmurs, rubs, or gallops. Distal pulses are 2+ and symmetric. PULMONARY: No evidence of respiratory distress. Lungs clear to auscultation bilaterally. No wheezing, rales or rhonchi. ABDOMINAL: Distended, nontender, no masses on palpation, bowel sounds present in 4 quadrants MUSCULOSKELETAL Normal range of motion at all joints. No bony deformities or tenderness. No CVA tenderness. EXTREMITIES: Mild pedal edema bilaterally up to mid shins SKIN: Warm and dry. Normal capillary refill. No rashes. No jaundice. PSYCHIATRIC: Cooperative. Good eye contact. Appropriate mood and affect. Abnormal Lab Results 06/25/19 06/25/19 18:40 19:51 RBC 3.38 L MCV 104.5 H MCH 35.0 H RDW 20.4 H Monocytes % 10.4 H Chloride 109 H BUN 22.1 H Random Glucose 141 H Calcium 8.1 L Total Bilirubin 1.7 H AST 41 H Albumin 2.6 L Lipase [address]/ABDOMEN PELVIS CT WITH CONTR Abdomen and pelvis CT with contrast Clinical information: abdominal distention multiplanar imaging was performed following the intravenous administration of nonionic contrast. Enteric contrast was not administered. In comparison to a prior CT exam of 05/15/2019 interval increased abdominal and pelvic ascites is noted which currently appears at least moderate in volume. Development of trace bilateral pleural effusions is seen. There is increased concentric subcutaneous edema along the abdomen and pelvis. Increased colonic distention is seen with associated fecal retention. As on the prior study there is possible focal concentric wall thickening within the lower third of the sigmoid colon possibly representing an obstructing neoplastic lesion. The remainder of the exam demonstrates no definite interval change. Concentric rectal wall thickening is again noted. No gross small bowel pathology is identified. Multiple small left and right hepatic lobe lesions are noted suggestive of metastatic neoplastic disease. Note is again made of several enlarged left periaortic retroperitoneal lymph nodes with a 1.1 cm short axis diameter. Note is again made of a 4.5 x 2.3 cm fluid structure within the left lower pelvis posteriorly which may be intrauterine. Mild splenomegaly (13 cm length). The pancreas, gallbladder, adrenal glands and kidneys demonstrate no discrete pathology. Incidental bilateral renal cysts. There is no aortic aneurysm. No gross CT evidence of acute appendicitis or diverticulitis. The osseous structures demonstrate no obvious CT evidence of acute pathology or neoplastic disease. No evidence of pneumoperitoneum. Bibasilar discoid atelectasis. IMPRESSION: In comparison to a CT exam of 05/15/2019 there is increased abdominal and pelvic ascites which is currently at least moderate in volume. Interval development of trace bilateral pleural effusions is seen. There is increased concentric subcutaneous edema along the abdomen and pelvis. Increased colonic distention is noted. As on the prior study there is possible focal concentric wall thickening within the lower third of the sigmoid colon possibly representing an obstructing neoplastic lesion. Additional evaluation utilizing colonoscopy or barium enema may be considered. The remainder of the exam demonstrates no obvious interval change. Nonspecific concentric rectal wall thickening. Multiple hepatic lesions suggestive of neoplastic disease. Retroperitoneal lymphadenopathy. Mild splenomegaly. 4.5 x 2.3 cm fluid structure within the left lower pelvis posteriorly which may be intrauterine. Reported By: Jonathon Gar MD 06/25/19 1429 ASSESSMENT AND PLAN: 74-year-old woman with metastatic colon cancer, Anasarca, suspected malignant ascites, suspected malignant pleural effusions abdominal distention with radiological findings suspicious of sigmoid obstruction. However, patient is having bowel movements regularly and does not have any pain which is not consistent with suspected radiological finding of bowel obstruction. Dr. Carver was consulted from the emergency department and is aware. Hypoalbuminemia. Admit to [facility] Surgery consult Oncology consult N.p.o. NG tube Intermittent decompression Check electrolytes and supplement as needed IV morphine for pain control Zofran IV as needed for nausea IV fluid hydration Restart on home meds DVT prophylaxis with heparin subcu
[2019-06-26] MEDS ORDERED: MORPHINE SULFATE 2 MG/ML VIAL IVPUSH PRN (01:47)
--- NOTE | 2019-06-26 01:47 | HP ---
CHIEF COMPLAINT: abdominal distention PCP: Dr Louis HISTORY OF PRESENT ILLNESS: 74 y/o M with PMH of rectal cancer, DM, HTN, and urge incontinence who was sent to the ED by her oncologist Dr Louis today for abdominal distension associated with one episode of NBNB vomiting. Per patient, her abdominal has been slowly enlarging for the past few weeks but remained unconcerned as she hasnt experienced any abdominal pain and she has been able to pass gas, have a bowel movement, and urinate. However, for the past 2 to 3 days, she has noticed some "soreness in her stomach" mostly after meals which resulted in her loss of appetite. But she does not have any generalized weakness, SOB, nausea, change in her stool color, consistency or smell, fevers/chills, weight loss, headache or dizziness. ER course was notable for: (1) Ct A/P (2)CBC, CMP, lipase (3) fleet enema Recent Travel: none PAST MEDICAL HISTORY: as noted above PAST SURGICAL HISTORY: leiomectomy Social History: Smokin PPD for 24 yrs but quit 30 yrs ago Alcohol:denies Drugs: denies Allergies No Known Allergies Allergy (Verified 01/08/19 20:04) HOME MEDICATIONS: Home Medications Medication Instructions Recorded Carvedilol [Coreg -] 25 mg PO BID 01/08/19 Famotidine [Pepcid] 40 mg PO DAILY 01/08/19 Hydrochlorothiazide [Hctz -] 12.5 mg PO DAILY 01/08/19 Methimazole [Tapazole] 5 mg PO BID 01/08/19 Oxybutynin Chloride [Ditropan Xl] 10 mg PO DAILY 01/08/19 Potassium Chloride [Klor-Con M10] 10 meq PO DAILY 01/08/19 REVIEW OF SYSTEMS CONSTITUTIONAL: loss of appetite Absent: fever, chills, diaphoresis, generalized weakness, malaise, weight change HEENT: Absent: rhinorrhea, nasal congestion, throat pain, throat swelling, difficulty swallowing, mouth swelling, ear pain, eye pain, visual changes CARDIOVASCULAR: Absent: chest pain, syncope, palpitations, irregular heart rate, lightheadedness , peripheral edema RESPIRATORY: Absent: cough, shortness of breath, dyspnea with exertion, orthopnea, wheezing, stridor, hemoptysis GASTROINTESTINAL:abdominal distension,vomiting Absent: abdominal pain, nausea, diarrhea, constipation, melena, hematochezia GENITOURINARY: urgency Absent: dysuria, frequency, hesitancy, hematuria, flank pain, genital pain MUSCULOSKELETAL: Absent: myalgia, arthralgia, joint swelling, back pain, neck pain SKIN: Absent: rash, itching, pallor HEMATOLOGIC/IMMUNOLOGIC: Absent: easy bleeding, easy bruising, lymphadenopathy, frequent infections ENDOCRINE: Absent: unexplained weight gain, unexplained weight loss, heat intolerance, cold intolerance NEUROLOGIC: Absent: headache, focal weakness or paresthesias, dizziness, unsteady gait, seizure, mental status changes, bladder or bowel incontinence PSYCHIATRIC: Absent: anxiety, depression, suicidal or homicidal ideation, hallucinations. PHYSICAL EXAMINATION Vital Signs - 24 hr 06/25/19 06/25/19 17:05 19:13 Temperature 97.9 F 98.5 F Pulse Rate 67 Pulse Rate [ 68 Left Apical] Respiratory 16 17 Rate Blood Pressure 131/47 L Blood Pressure 123/46 L [Right Arm] O2 Sat by Pulse 98 100 Oximetry (%) GENERAL: Awake, alert, and fully oriented, in no acute distress. HEAD: Normal with no signs of trauma. EYES: Pupils equal, round and reactive to light, extraocular movements intact, sclera anicteric, conjunctiva clear. No lid lag. EARS, NOSE, THROAT: oropharynx clear without exudates. Moist mucous membranes. NECK: Normal range of motion, supple without lymphadenopathy, JVD, or masses. LUNGS: Breath sounds equal, clear to auscultation bilaterally. No wheezes, and no crackles. No accessory muscle use. HEART: Regular rate and rhythm, normal S1 and S2 without murmur, rub or gallop. ABDOMEN: Soft, nontender, distended, normoactive bowel sounds, no guarding, no rebound, no masses. No hepatomegaly or splenomegaly. MUSCULOSKELETAL: Normal range of motion at all joints. No bony deformities or tenderness. No CVA tenderness. UPPER EXTREMITIES: 2+ pulses, warm, well-perfused. No cyanosis. No clubbing. No peripheral edema. LOWER EXTREMITIES: 2+ pulses, warm, well-perfused. No calf tenderness. 1+ edema. PSYCHIATRIC: Cooperative. Good eye contact. Appropriate mood and affect. SKIN: Warm, dry, normal turgor, cherey angiomas and small moles, normal capillary refill. Laboratory Results - last 24 hr 06/25/19 06/25/19 06/25/19 17:38 18:40 18:40 WBC 8.4 RBC 3.38 L Hgb 11.8 Hct 35.3 MCV 104.5 H MCH 35.0 H MCHC 33.5 RDW 20.4 H Plt Count 152 D MPV 9.5 Absolute Neuts (auto) 6.5 Neutrophils % 77.6 D Lymphocytes % 11.6 D Monocytes % 10.4 H Eosinophils % 0.2 D Basophils % 0.2 Nucleated RBC % 0 Sodium Cancelled Potassium Cancelled Chloride Cancelled Carbon Dioxide Cancelled Anion Gap Cancelled BUN Cancelled Creatinine Cancelled Est GFR (CKD-EPI)AfAm Cancelled Est GFR (CKD-EPI)NonAf Cancelled Random Glucose Cancelled Lactic Acid 1.7 Calcium Cancelled Total Bilirubin Cancelled AST Cancelled ALT Cancelled Alkaline Phosphatase Cancelled Creatine Kinase Cancelled Troponin I Cancelled Total Protein Cancelled Albumin Cancelled Lipase Cancelled Blood Type Antibody Screen 06/25/19 06/25/19 18:50 19:51 WBC RBC Hgb Hct MCV MCH MCHC RDW Plt Count MPV Absolute Neuts (auto) Neutrophils % Lymphocytes % Monocytes % Eosinophils % Basophils % Nucleated RBC % Sodium 139 Potassium 4.3 Chloride 109 H Carbon Dioxide 22 Anion Gap 8 BUN 22.1 H Creatinine 1.1 Est GFR (CKD-EPI)AfAm 58.09 Est GFR (CKD-EPI)NonAf 50.12 Random Glucose 141 H Lactic Acid Calcium 8.1 L Total Bilirubin 1.7 H AST 41 H ALT 23 Alkaline Phosphatase 83 Creatine Kinase 101 Troponin I < 0.02 Total Protein 6.6 Albumin 2.6 L Lipase 53 L Blood Type A POSITIVE Antibody Screen Negative CT Abdomen and pelvis In comparison to a prior CT exam of 05/15/2019 interval increased abdominal and pelvic ascites is noted which currently appears at least moderate in volume. Development of trace bilateral pleural effusions is seen. There is increased concentric subcutaneous edema along the abdomen and pelvis. Increased colonic distention is seen with associated fecal retention. As on the prior study there is possible focal concentric wall thickening within the lower third of the sigmoid colon possibly representing an obstructing neoplastic lesion. The remainder of the exam demonstrates no definite interval change. Concentric rectal wall thickening is again noted. No gross small bowel pathology is identified. Multiple small left and right hepatic lobe lesions are noted suggestive of metastatic neoplastic disease. Note is again made of several enlarged left periaortic retroperitoneal lymph nodes with a 1.1 cm short axis diameter. Note is again made of a 4.5 x 2.3 cm fluid structure within the left lower pelvis posteriorly which may be intrauterine. Mild splenomegaly (13 cm length). The pancreas, gallbladder, adrenal glands and kidneys demonstrate no discrete pathology. Incidental bilateral renal cysts. There is no aortic aneurysm. No gross CT evidence of acute appendicitis or diverticulitis. The osseous structures demonstrate no obvious CT evidence of acute pathology or neoplastic disease. No evidence of pneumoperitoneum. Bibasilar discoid atelectasis. IMPRESSION: In comparison to a CT exam of 05/15/2019 there is increased abdominal and pelvic ascites which is currently at least moderate in volume. Interval development of trace bilateral pleural effusions is seen. There is increased concentric subcutaneous edema along the abdomen and pelvis. Increased colonic distention is noted. As on the prior study there is possible focal concentric wall thickening within the lower third of the sigmoid colon possibly representing an obstructing neoplastic lesion. Additional evaluation utilizing colonoscopy or barium enema may be considered. The remainder of the exam demonstrates no obvious interval change. Nonspecific concentric rectal wall thickening. Multiple hepatic lesions suggestive of neoplastic disease. Retroperitoneal lymphadenopathy. Mild splenomegaly. 4.5 x 2.3 cm fluid structure within the left lower pelvis posteriorly which may be intrauterine. ASSESSMENT/PLAN: 74 y/o M with PMH of rectal cancer, DM, HTN, and urge incontinence who was sent to the ED by her oncologist Dr Louis today for abdominal distension associated with one episode of NBNB vomiting Abdominal distention 2/2 malignant SBO/ Ascites CT findings above NPO NG tube with intermittent suction for decompression Bowel rest NS@75cc/h Zofran Q6h for nausea/vomiting Morphine 1mg Q4h for pain control IR consult-Dr Barrera for diagnostic paracenthesis. with protein, cell count echo to evaluate for malignant effusion and to r/o cardiomyopathy surgert consult- Dr Mehul echeverria keep patient NPO for now and 1 fleet enema oncology consult-Dr Louis who also follow pt as outpatient GI consult Dr Moore- per oncology request Duplex U/S to r/o DVT Urine retention evident on imagine hx of overactive bladder Dunne insert to decompress restart oxybutynin after med rec DVT lovenox 40 SQ daily restart home meds after med rec Visit type - Emergency Visit Emergency Visit: Yes ED Registration Date: 06/25/19 Care time: The patient presented to the Emergency Department on the above date and was hospitalized for further evaluation of their emergent condition. - New Patient This patient is new to me today: No - Critical Care Critical Care patient: No ATTENDING PHYSICIAN STATEMENT I saw and evaluated the patient. I reviewed the resident's note and discussed the case with the resident. I agree with the resident's findings and plan as documented. SUBJECTIVE: OBJECTIVE: ASSESSMENT AND PLAN:
[2019-06-26] MEDS ORDERED: SODIUM CHLORIDE 1,000 ML IV SCH (02:00)
[2019-06-26] MEDS ORDERED: LIDOCAINE HCL 2% JELLY (5 ML/TUBE) ONE (02:48)
[2019-06-26] MEDS: INSULIN SLIDING SCALE (NOVOLOG) 1 VIAL SQ SCH ×4 (06:07→21:26)
--- NOTE | 2019-06-26 08:52 | CON.GI ---
Consult Consult Specialty:: GI Referred by:: Dr. Missy Segura Reason for Consultation:: Intestinal obstruction, Hx Rectal CA - History of Present Illness Chief Complaint: Abdominal Distention History of Present Illness: Patient is 74 y/o female with past medical history DM, HTN, urge incontinence, and Rectal CA. Patient was sent to ER by Dr Louis for noted abdominal distention. Patient states she denies noticing any abdominal distention prior to admission. She does admit to having generalized abdominal soreness for less than 1 month with one episode of vomiting clear contents which occured on Tuesday. She states having regular BM but noticed one episode of rectal bleeding about one week ago. She is currently undergoing chemotherapy with last session two weeks for Rectal Cancer. Abdominal CT scan in ER shows increase in abdominal and pelvic ascites at least in moderate volume, increase in concentric subcutaneous edema along abdomen and pelvis, increased colonic distention, focal concentric wall thickening within lower third sigmoid colon possible representing obstructive neoplastic lesion, nonspecific concentric rectal wall thickening, multiple hepatic lesions suggesting neoplastic disease, retroperitoneal lymphadenopathy, 4.5 x 2.3 fluid structure within left lower pelvis posteriorly. Recent Colonoscopy done in 12/2018 which found mass in rectum with pathology showing invasive adenocarcinoma. Prior CT scan from 2018 shows multiple pulmonary nodules strongly suspicious for metastatic disease , multiple liver lesions strongly suspicious of metastatic disease, enlarged adrenal glands possibly related to additional metastases, extensive retroperitoneal lymphadenopathy, marked thichening and irregularity of the mid sigmoid colon suspicious for malignancy. - History Source History Provided By: Patient Limitations to Obtaining History: No Limitations - Past Medical History Cardio/Vascular: Yes: HTN Endocrine: Yes: Diabetes Mellitus - Alcohol/Substance Use Hx Alcohol Use: No - Smoking History Smoking history: Never smoked Have you smoked in the past 12 months: No - Social History ADL: Independent History of Recent Travel: No Home Medications - Allergies Allergies/Adverse Reactions: Allergies Allergy/AdvReac Type Severity Reaction Status Date / Time No Known Allergies Allergy Verified 01/08/19 20:04 - Home Medications Home Medications: Ambulatory Orders Carvedilol [Coreg -] 25 mg PO BID 01/08/19 Famotidine [Pepcid] 40 mg PO DAILY 01/08/19 Hydrochlorothiazide [Hctz -] 12.5 mg PO DAILY 01/08/19 Methimazole [Tapazole] 5 mg PO BID 01/08/19 Oxybutynin Chloride [Ditropan Xl] 10 mg PO DAILY 01/08/19 Potassium Chloride [Klor-Con M10] 10 meq PO DAILY 01/08/19 Review of Systems - Review of Systems Constitutional: reports: Loss of Appetite Eyes: reports: No Symptoms HENT: reports: No Symptoms Neck: reports: No Symptoms Cardiovascular: reports: No Symptoms Respiratory: reports: No Symptoms Gastrointestinal: reports: Abdominal Pain, Rectal Bleeding, Vomiting Genitourinary: reports: No Symptoms Breasts: reports: No Symptoms Reported Musculoskeletal: reports: No Symptoms Integumentary: reports: No Symptoms Neurological: reports: No Symptoms Endocrine: reports: No Symptoms Hematology/Lymphatic: reports: No Symptoms Psychiatric: reports: No Symptoms Physical Exam-GI Vital Signs: Vital Signs Temperature 98.4 F 06/26/19 02:42 Pulse Rate 61 06/26/19 02:42 Respiratory Rate 18 06/26/19 02:42 Blood Pressure 102/53 L 06/26/19 02:42 O2 Sat by Pulse Oximetry (%) 96 06/26/19 02:42 Constitutional: Yes: No Distress, Calm Eyes: Yes: Conjunctiva Clear HENT: Yes: Atraumatic Cardiovascular: Yes: Regular Rate and Rhythm Respiratory: Yes: Regular, CTA Bilaterally Gastrointestinal Inspection: Yes: Ascites. No: WNL, Distention, Hernia, Scars, Other ...Auscultate: Yes: Normoactive Bowel Sounds. No: Hyperactive Bowel Sounds, Hypoactive Bowel Sounds, No Bowel Sounds, Other ...Palpate: Yes: Soft. No: Firm/Rigid, Guarding, Hepatomegaly, Mass, Pulsatile Mass, Splenomegaly, Tenderness, Tenderness, Epigastium, Tenderness, Rebound, Other ...Percussion: Yes: Tympanitic. No: Dullness, Fluid Wave, Other Neurological: Yes: Alert, Oriented Psychiatric: Yes: Alert, Oriented Labs: CBC, BMP 06/25/19 18:40 06/25/19 19:51 Imaging - Results Cat Scan: Report Reviewed Problem List - Problems (1) Ascites Assessment/Plan: >IR consult for diagnostic paracentesis Code(s): R18.8 - OTHER ASCITES (2) Bowel obstruction Assessment/Plan: -Surgical consult -NPO -NGT to [facility] Code(s): K56.609 - UNSP INTESTNL OBST, UNSP TO PARTIAL VERSUS COMPLETE OBST
--- NOTE | 2019-06-26 09:41 | CONSULT ---
Consult Consult Specialty:: Surgery: Referred by:: Dr Louis Reason for Consultation:: Colonic obstruction, from rectal , Known distal sigmoid carcinoma. - History of Present Illness Chief Complaint: Patient is a poor historian. Denies knowing anything about her condition. She states that she has had a bowel movement after admisiion to the floor. She has received enemas. - History Source History Provided By: Patient, Medical Record Limitations to Obtaining History: No Limitations - Past Medical History Cardio/Vascular: Yes: HTN Gastrointestinal: Yes: Other (H/O known distal colon carcinoma , atleast since December 2018. Known to have metastasis to liver , lung , ascites.) Endocrine: Yes: Diabetes Mellitus - Alcohol/Substance Use Hx Alcohol Use: No - Smoking History Smoking history: Never smoked Have you smoked in the past 12 months: No - Social History ADL: Independent History of Recent Travel: No Home Medications - Allergies Allergies/Adverse Reactions: Allergies Allergy/AdvReac Type Severity Reaction Status Date / Time No Known Allergies Allergy Verified 01/08/19 20:04 - Home Medications Home Medications: Ambulatory Orders Carvedilol [Coreg -] 25 mg PO BID 01/08/19 Famotidine [Pepcid] 40 mg PO DAILY 01/08/19 Hydrochlorothiazide [Hctz -] 12.5 mg PO DAILY 01/08/19 Methimazole [Tapazole] 5 mg PO BID 01/08/19 Oxybutynin Chloride [Ditropan Xl] 10 mg PO DAILY 01/08/19 Potassium Chloride [Klor-Con M10] 10 meq PO DAILY 01/08/19 Review of Systems - Review of Systems Gastrointestinal: reports: Other (Abdominal distention) Physical Exam Vital Signs: Vital Signs Temperature 98.4 F 06/26/19 02:42 Pulse Rate 61 06/26/19 02:42 Respiratory Rate 18 06/26/19 02:42 Blood Pressure 102/53 L 06/26/19 02:42 O2 Sat by Pulse Oximetry (%) 96 06/26/19 02:42 Gastrointestinal: Yes: Abdomen, Obese (Abdomen is slightly distender , soft , ? mass in right upper quadrant of abdomen .) Labs: CBC, BMP 06/25/19 18:40 06/25/19 19:51 Imaging - Results Cat Scan: Report Reviewed, Image Reviewed (Significant ascites , with mass in distal colon , with partial obstruction , with significant gradient, Cecum not markedly distended.) Problem List - Problems (1) Mass of colon Code(s): K63.89 - OTHER SPECIFIED DISEASES OF INTESTINE (2) Large bowel obstruction Code(s): K56.609 - UNSP INTESTNL OBST, UNSP TO PARTIAL VERSUS COMPLETE OBST (3) Liver metastasis Code(s): C78.7 - SECONDARY MALIG NEOPLASM OF LIVER AND INTRAHEPATIC BILE DUCT (4) Ascites Code(s): R18.8 - OTHER ASCITES Assessment/Plan Patient has stage 4 . colonic cancer with progression during treatment. Surgery can be palliatiuve for colonic obstruction , with diverting proximal colostomy. Tried to explain to the patient. She does not believe she is obstructed,. If patient and fa=cecelia agree can consider colostomy. Abpominal X-ray.
[2019-06-26] MEDS ORDERED: ENOXAPARIN NA (PORCINE) 40 MG/0.4 ML DISP.SYRIN SQ SCH (10:00)
[2019-06-26 10:56] VITALS: BMI 24.2
[2019-06-26 11:24] LABS: BASO % 0.1 % (0-2.0); EOS % 0.5 % (0-4.5); HEMATOCRIT 35.9 % (32.4-45.2); HEMOGLOBIN 11.9 GM/dL (10.7-15.3); LYMPH % 13.3 % (8-40); MCH 34.6 pg (25.7-33.7); MCHC 33.1 g/dl (32.0-36.0); MEAN CELL VOLUME 104.5 fl (80-96); MEAN PLT VOLUME 8.7 fl (7.5-11.1); MONO % 11.8 % (3.8-10.2); NEUT % 74.3 % (42.8-82.8); PLATELET COUNT 126 K/MM3 (134-434); RBC 3.43 M/mm3 (3.60-5.2); WHITE BLOOD COUNT 6.9 K/mm3 (4.0-10.0)
[2019-06-26 11:40] LABS: INR 1.21 (0.83-1.09); PROTHROMBIN TIME (PATIENT) 14.3 SEC (9.7-13.0)
[2019-06-26 11:43] LABS: ACTIVATED PTT 36.3 SECONDS (25.2-36.5)
[2019-06-26 12:01] LABS: ALBUMIN 2.5 g/dl (3.4-5.0); BILIRUBIN,TOTAL 1.5 mg/dL (0.2-1); BLOOD UREA NITROGEN 19.9 mg/dL (7-18); CALCIUM 8.2 mg/dL (8.5-10.1); CREATININE 0.9 mg/dL (0.55-1.3); MAGNESIUM 1.7 mg/dL (1.8-2.4); PHOSPHOROUS 2.3 mg/dL (2.5-4.9); POTASSIUM 3.4 mmol/L (3.5-5.1); TOT PROT 6.3 g/dl (6.4-8.2)
--- NOTE | 2019-06-26 12:10 | EKG ---
Test Reason : Blood Pressure : / mmHG Vent. Rate : 068 BPM Atrial Rate : 068 BPM P-R Int : 124 ms QRS Dur : 088 ms QT Int : 408 ms P-R-T Axes : 076 027 257 degrees QTc Int : 433 ms POOR DATA QUALITY, INTERPRETATION MAY BE ADVERSELY AFFECTED SINUS RHYTHM WITH PREMATURE SUPRAVENTRICULAR COMPLEXES ABNORMAL ECG Confirmed by Eliseo Finley MD ([id number]) on 06/26/2019 12:09:43 PM Referred By: Confirmed By:Eliseo Finley MD
[2019-06-26 14:12] LABS: BF WBC & OTHER NUCLEATED CELLS 324 /mm3
--- NOTE | 2019-06-26 14:37 | PN ---
Physical Exam: SUBJECTIVE: Patient seen and examined 74 y/o F, pmh of rectal cancer, DM, htn, urge incontinence was sent to the ED by Dr. Louis her oncologist, for abdominal distention accompanied w/ one episode of NBNB vomiting. Pt reports that the abdominal has been distended and enlarged for the past few weeks and has since been worsening. She did not think it was concerning because of lack of pain, ability to move her bowels and pass gas. Recently she has been noticing pain in her stomach after meals, which keeps her from eating and thus loosing her appetite. Pt reports no issues over night except for urinary incontinence for which a Dunne was inserted. Pt remains afebrile and asymptomatic. Denies f/c/n/v/d, chest pain, sob, abdominal pain, numbness or tingling. OBJECTIVE: Vital Signs Period Temp Pulse Resp BP Sys/Dennison Pulse Ox Last 24 Hr 97.9 F-98.5 F 61-68 16-18 102-131/46-70 96-100 GENERAL: The patient is awake, alert, and fully oriented, in no acute distress. EYES: PERRL, NECK: Supple LUNGS: Breath sounds equal, clear to auscultation bilaterally, no wheezes, no crackles HEART: Regular rate and rhythm, S1, S2. 2/6 systolic Murmur without rub or gallop. ABDOMEN: Very distended, nontender, Hyperactive BS RLQ, no guarding, no rebound. EXTREMITIES: 2+ pulses, mild edema in the lower leg NEUROLOGICAL: Cranial nerves II through XII grossly intact. Strength 5/5 UE and LE b/l, Sensation intact SKIN: Warm, Laboratory Results - last 24 hr 06/25/19 06/25/19 06/25/19 17:38 18:40 18:40 WBC 8.4 RBC 3.38 L Hgb 11.8 Hct 35.3 MCV 104.5 H MCH 35.0 H MCHC 33.5 RDW 20.4 H Plt Count 152 D MPV 9.5 Absolute Neuts (auto) 6.5 Neutrophils % 77.6 D Lymphocytes % 11.6 D Monocytes % 10.4 H Eosinophils % 0.2 D Basophils % 0.2 Nucleated RBC % 0 PT with INR INR PTT (Actin FS) Sodium Cancelled Potassium Cancelled Chloride Cancelled Carbon Dioxide Cancelled Anion Gap Cancelled BUN Cancelled Creatinine Cancelled Est GFR (CKD-EPI)AfAm Cancelled Est GFR (CKD-EPI)NonAf Cancelled POC Glucometer Random Glucose Cancelled Lactic Acid 1.7 Calcium Cancelled Phosphorus Magnesium Total Bilirubin Cancelled AST Cancelled ALT Cancelled Alkaline Phosphatase Cancelled Creatine Kinase Cancelled Troponin I Cancelled Total Protein Cancelled Albumin Cancelled Lipase Cancelled Fluid Source Fluid WBC Fluid RBC Blood Type Antibody Screen Active Medications Generic Name Dose Route Start Last Admin Trade Name Freq PRN Reason Stop Dose Admin Sodium Chloride 1,000 mls @ 75 mls/hr 06/26/19 02:00 06/26/19 02:30 Normal Saline - IV 75 mls/hr ASDIR CHITRA Administration Insulin Aspart 1 vial 06/26/19 07:00 06/26/19 12:48 Novolog Vial Sliding Scale - SQ Not Given ACHS CHITRA Protocol Morphine Sulfate 1 mg 06/26/19 01:47 Morphine Sulfate IVPUSH Q4H PRN PAIN LEVEL 1-5 ASSESSMENT/PLAN: 74 y/o F, pmh of rectal cancer, DM, htn, urge incontinence was sent to the ED by Dr. Louis her oncologist, for abdominal distention #Large Bowel obstruction 2/2 to malignancy of the sigmoid colon-Stage IV CT A/P- possible focal concentric wall thickening within the lower third of sigmoid colon possibly representing an obstructing neoplastic lesion Surgery consulted- Dr. Carver Keep NPO NGT decompression as per surgery GI consult-Dr. Moore as per oncology request f/u oncology outpt- Dr. Louis #Ascites IR drained ascites- will sent fluid to cytology- f/u w/ pathology #Urinary retention Dunne inserted continue oxybutinin after med rec #DVT ppx SCDs #DM Give meds if glucose >200 Dispo: f/u w/ surgery, NGT decompression, monitor glucose Visit type - Emergency Visit Emergency Visit: Yes ED Registration Date: 06/25/19 Care time: The patient presented to the Emergency Department on the above date and was hospitalized for further evaluation of their emergent condition. - New Patient This patient is new to me today: Yes Date on this admission: 06/26/19 - Critical Care Critical Care patient: No - Discharge Referral Referred to [facility] Med P.C[facility] No ATTENDING PHYSICIAN STATEMENT I saw and evaluated the patient. I reviewed the resident's note and discussed the case with the resident. I agree with the resident's findings and plan as documented. SUBJECTIVE: OBJECTIVE: ASSESSMENT AND PLAN:
--- NOTE | 2019-06-26 14:58 | PN ---
Teaching Attending Note Name of Resident: Xuan Sotkes ATTENDING PHYSICIAN STATEMENT I saw and evaluated the patient. I reviewed the resident's note and discussed the case with the resident. I agree with the resident's findings and plan as documented. SUBJECTIVE: No fever or chills. denies abd pain, No N/v at this time. OBJECTIVE: NAD. Cv: RRR, LUSB 2/6 SM , with o radiation Lungs: CATB abd: distended, NT, tympanic. liver is not palpated. NG tube in L nostril Ext : 1+ edema on LLE, trace on R ASSESSMENT AND PLAN: 74 y/o lady with h/o HTN, recently diagnosed colon cancer onchemo and other medical problems who presented with Abdominal distention and vomiting and was found to have large bowel obstruction 1- Large bowel obstruction due to sigmoid mass. Ct images and report reviewed. - cont NGT - cont NPO - IVF - Patient declined sx earlier with Dr. Carver. I had a prolonged discussion with patient who agreed to sx which might include a colostomy. - will notify Dr. Carver 2- Colon cancer with Mets to liver and lymphadenopathy in pelvis. per patient, cancer was not metastatic before. - last chemo about 2 weeks ago - will d/w Onc, the details of her cancer - paracentesis was done. analysis is still pending 3- pleural effusions and ascitis , could be malignant or due to the abdominal process ( obstruction ) ,or less likely due to heart failure - Echo pending read - diagnostic paracentesis was done. will make sure cytology is sent 4- H/o HTN: hold meds, nl BP for now 5- Hypophosphatemia, hypomagnesemia, hypokalemia - replete all electrolytes - add Kcl to IVF 6- H/o DM : hold metformin. SSI if sugar is elevated Dispo : HLOC .
[2019-06-26] MEDS ORDERED: MAGNESIUM SULF 50% (8.12 MEQ/2 ML-1 GM VIAL) IVPB ONE (15:00)
[2019-06-26 15:25] LABS: BODY FLUID MACROPHAGES 24 %; BODY FLUID MESOTHELIAL 16 %; BODY FLUID MONOCYTE 32 %
--- NOTE | 2019-06-26 15:29 | ECHO ---
Name: JEMIMA LÓPEZ Exam:Adult Echocardiogram Study Date: 06/26/2019 02:27 PM Age: 74 yrs Reason For Study: evaluate Height: 67 in Weight: 146 lb BSA: 1.8 m2 MMode/2D Measurements & Calculations IVSd: 0.83 cm Ao root diam: 2.9 cm LVIDd: 4.6 cm LA dimension: 4.1 cm LVIDs: 2.9 cm LVPWd: 0.95 cm LVPWs: 1.5 cm EDV(Alfaich): 96.3 ml ESV(Teich): 33.4 ml LAV (MOD-bp): 89.0 ml Doppler Measurements & Calculations MV E max yaniv: 55.8 cm/sec Ao V2 max: 126.0 cm/sec MV A max yaniv: 76.5 cm/sec Ao max P.4 mmHg MV E/A: 0.73 MV dec time: 0.20 sec LV V1 max P.4 mmHg TR max yaniv: 279.6 cm/sec LV V1 max: 105.1 cm/sec TR max P.3 mmHg PA V2 max: 131.2 cm/sec Med Peak E' Yaniv: 6.4 cm/sec PA max P.9 mmHg Med E/e': 8.8 Lat Peak E' Yaniv: 7.9 cm/sec Lat E/e': 7.1 Procedure A two-dimensional transthoracic echocardiogram with color flow and Doppler was performed. Left Ventricle The left ventricular size, thickness and function are normal. Ejection Fraction = 60%. Grade I diasto lic dysfunction, (abnormal relaxation pattern). Right Ventricle The right ventricle is normal in size and function. Atria The left atrium is mildly dilated. Right atrial size is normal. Mitral Valve The mitral valve is grossly normal. There is trace mitral regurgitation. Tricuspid Valve The tricuspid valve is not well visualized, but is grossly normal. There is mild tricuspid regurgitat ion. Right ventricular systolic pressure is elevated at 30-40mmHg. Aortic Valve There is mild aortic valve thickening. No hemodynamically significant valvular aortic stenosis. Pulmonic Valve The pulmonic valve is not well visualized. Great Vessels The aortic root is normal size. Pericardium/Pleura Trivial pericardial effusion. Interpretation Summary The left ventricular size, thickness and function are normal The left atrium is mildly dilated. There is trace mitral regurgitation. There is mild tricuspid regurgitation. No hemodynamically significant valvular aortic stenosis. Grade I diastolic dysfunction, (abnormal relaxation pattern). Right ventricular systolic pressure is elevated at 30-40mmHg. Trivial pericardial effusion. MD Petr Ventura 06/26/2019 03:29 PM
[2019-06-26] MEDS ORDERED: POTASSIUM PHOSPHATE 30 MM in DEXTROSE 5%-WATER - 500 ML IVPB ONE (16:00)
[2019-06-26] MEDS: SODIUM CHLORIDE 0.9%/KCL 20 MEQ/1,000 ML INFUS.BAG IV SCH (16:28)
--- NOTE | 2019-06-26 19:15 | PN ---
Progress Note (short form) - Note Progress Note: I have seen and examined Tamar Joy with Dr. Tello. Agree with note and plan. 74 y/o lady with PMH of rectal cancer, DM, HTN, and urge incontinence who was sent to the ED by her oncologist Dr Louis for abdominal distension associated with one episode of NBNB vomiting. Per patient reported to admitting team, her abdominal has been slowly enlarging for the past few weeks but remained unconcerned as she hasnt experienced any abdominal pain and she has been able to pass gas, have a bowel movement, and urinate. However, for the past 2 to 3 days, she has noticed some "soreness in her stomach" mostly after meals which resulted in her loss of appetite. But she does not have any generalized weakness , SOB, nausea, change in her stool color, consistency or smell, fevers/chills, weight loss, headache or dizziness. SUBJECTIVE: No fever or chills. denies abd pain, No N/V at this time. Has NG tube placed OBJECTIVE: Last Vital Signs Temp Pulse Resp BP Pulse Ox 98.7 F 62 18 125/61 97 06/26/19 15:00 06/26/19 15:00 06/26/19 15:00 06/26/19 15:00 06/26/19 10:00 NAD. CV: S1,S2 Lungs: CTAB Abd: distended, nontender NG tube in L nostril Ext : 1+ edema on LLE, trace on R Neuro: moves all extremities ASSESSMENT AND PLAN: 74 y/o lady with h/o HTN, recently diagnosed colon cancer onchemo and other medical problems who presented with Abdominal distention and vomiting and was found to have large bowel obstruction Plan: 1) She mentoned has been evaluated by and is likely to go to ER. 2) Re-staging and chemotherapy planning after re-evaluation by Dr. Louis
[2019-06-26] MEDS ORDERED: PT OWN MED DRAWER 7, Y5N ONE (22:12)
--- NOTE | 2019-06-26 23:25 | CONSULT ---
Consult Consult Specialty:: Hematology and oncology Reason for Consultation:: h/o rectal cancer - History of Present Illness Chief Complaint: abdominal distension History of Present Illness: The patient is a 74 y/o M with PMH of rectal cancer, DM, HTN, and urge incontinence who was sent to the ED by Dr Louis for abdominal distension associated with one episode of NBNB vomiting. Patient was found to have a partial colonic obstruction 2/2 mass effect of her rectal cancer. On interview, the patient is well appearing with NGT in place and no complaints. She states that she may have surgery soon. Surgery and GI on board. - History Source History Provided By: Patient, Medical Record Limitations to Obtaining History: No Limitations - Past Medical History Cardio/Vascular: Yes: HTN Gastrointestinal: Yes: Other (H/O known distal colon carcinoma , atleast since December 2018. Known to have metastasis to liver , lung , ascites.) ...: No Endocrine: Yes: Diabetes Mellitus - Alcohol/Substance Use Hx Alcohol Use: No - Smoking History Smoking history: Never smoked Have you smoked in the past 12 months: No - Social History ADL: Independent History of Recent Travel: No Home Medications - Allergies Allergies/Adverse Reactions: Allergies Allergy/AdvReac Type Severity Reaction Status Date / Time No Known Allergies Allergy Verified 01/08/19 20:04 - Home Medications Home Medications: Ambulatory Orders Carvedilol [Coreg -] 25 mg PO BID 01/08/19 Famotidine [Pepcid] 40 mg PO DAILY 01/08/19 Hydrochlorothiazide [Hctz -] 12.5 mg PO DAILY 01/08/19 Methimazole [Tapazole] 5 mg PO BID 01/08/19 Oxybutynin Chloride [Ditropan Xl] 10 mg PO DAILY 01/08/19 Potassium Chloride [Klor-Con M10] 10 meq PO DAILY 01/08/19 Metformin HCl [Glucophage] 500 tablet PO BID 06/26/19 Review of Systems - Review of Systems Constitutional: denies: Chills, Fever Cardiovascular: denies: Chest Pain, Shortness of Breath Respiratory: denies: Cough, SOB, SOB on Exertion Gastrointestinal: reports: Abdominal Pain, Nausea. denies: Rectal Bleeding, Vomiting, Vomiting Blood Physical Exam Vital Signs: Vital Signs Temperature 98.0 F 06/26/19 20:20 Pulse Rate 65 06/26/19 20:20 Respiratory Rate 17 06/26/19 20:20 Blood Pressure 123/60 06/26/19 20:20 O2 Sat by Pulse Oximetry (%) 95 06/26/19 20:36 Constitutional: Yes: Well Nourished, No Distress, Calm HENT: Yes: Atraumatic, Normocephalic Cardiovascular: Yes: Regular Rate and Rhythm, S1, S2. No: Gallop, Murmur, Rub Respiratory: Yes: Regular, CTA Bilaterally Gastrointestinal: Yes: Normal Bowel Sounds, Soft Edema: No Neurological: Yes: Alert, Oriented Psychiatric: Yes: Alert, Oriented Labs: CBC, BMP 06/26/19 11:05 06/26/19 11:05 Assessment/Plan The patient is a 74 y/o M with PMH of rectal cancer, DM, HTN, and urge incontinence who was sent to the ED by Dr Louis for abdominal distension associated with one episode of NBNB vomiting. Patient was found to have a partial colonic obstruction 2/2 mass effect of her rectal cancer. #Bowel obstruction 2/2 rectal mass -surgery following -GI following -primary team to follow up with surgery regarding intervention -patient will require restaging and re-planning of chemotherapy in the future once her acute illness in resolved.
[2019-06-27] MEDS ORDERED: PT OWN MED DRAWER 7, Y5N ONE (05:16)
[2019-06-27] MEDS: INSULIN SLIDING SCALE (NOVOLOG) 1 VIAL SQ SCH ×4 (06:06→22:43)
[2019-06-27 07:50] LABS: BASO % 0.2 % (0-2.0); EOS % 0.6 % (0-4.5); HEMATOCRIT 33.6 % (32.4-45.2); HEMOGLOBIN 11.4 GM/dL (10.7-15.3); LYMPH % 18.3 % (8-40); MCH 34.9 pg (25.7-33.7); MCHC 34.1 g/dl (32.0-36.0); MEAN CELL VOLUME 102.5 fl (80-96); MEAN PLT VOLUME 8.3 fl (7.5-11.1); MONO % 16.1 % (3.8-10.2); NEUT % 64.8 % (42.8-82.8); PLATELET COUNT 127 K/MM3 (134-434); RBC 3.27 M/mm3 (3.60-5.2); WHITE BLOOD COUNT 5.6 K/mm3 (4.0-10.0)
[2019-06-27 08:17] LABS: ALBUMIN 2.2 g/dl (3.4-5.0); BILIRUBIN,TOTAL 1.1 mg/dL (0.2-1); BLOOD UREA NITROGEN 16.8 mg/dL (7-18); CREATININE 0.9 mg/dL (0.55-1.3); POTASSIUM 3.5 mmol/L (3.5-5.1); TOT PROT 5.7 g/dl (6.4-8.2)
--- NOTE | 2019-06-27 08:34 | PN ---
Progress Note, Physician History of Present Illness: GI FOLLOW UP NOTE Patient examined and case discussed with Dr Moore Patient examined alert and awake, lying in bed. Patient is s/p Paracentesis yesterday. NGT to [facility] with <100cc noted in cannister. Patient denies nasuea, vomiting, abdominal pain, diarrhea, rectal bleeding or blood in stool. Repeat Abdominal Xray shows abnormal gas pattern with gaseous distention of colon with no extraluminal air. - Current Medication List Current Medications: Active Medications Potassium Chloride/Sodium Chloride (Ns+20 Meq Kcl -) 20 meq in 1,000 mls @ 75 mls/hr IV ASDIR [facility] Last Admin: 06/26/19 16:28 Dose: 75 mls/hr Insulin Aspart (Novolog Vial Sliding Scale -) 1 vial SQ ACHS [facility]; Protocol Last Admin: 06/27/19 06:06 Dose: Not Given Morphine Sulfate (Morphine Sulfate) 1 mg IVPUSH Q4H PRN PRN Reason: PAIN LEVEL 1-5 - Objective Vital Signs: Vital Signs Temperature 98.4 F 06/27/19 07:04 Pulse Rate 67 06/27/19 07:04 Respiratory Rate 18 06/27/19 07:04 Blood Pressure 115/59 L 06/27/19 07:04 O2 Sat by Pulse Oximetry (%) 95 06/26/19 21:00 Constitutional: Yes: No Distress, Calm Eyes: Yes: Conjunctiva Clear HENT: Yes: Atraumatic Cardiovascular: Yes: Regular Rate and Rhythm Respiratory: Yes: Regular, CTA Bilaterally Gastrointestinal: Yes: Normal Bowel Sounds, Soft, Ascites Neurological: Yes: Alert Psychiatric: Yes: Alert Labs: CBC, BMP 06/27/19 06:55 INR, PTT INR 1.21 (0.83-1.09) H 06/26/19 11:05 Problem List - Problems (1) Large bowel obstruction Assessment/Plan: -Surgery on board and recommendation appreciated, can consider possible diverting proximal colostomy -NPO -NGT to [facility] -consider possible transfer to [facility] with Dr Paula for colonic stent placement Code(s): K56.609 - UNSP INTESTNL OBST, UNSP TO PARTIAL VERSUS COMPLETE OBST (2) Mass of colon Assessment/Plan: -Oncology on board -Abd/Pelvic CT scan reviewed -CEA 42.7 -patient noted to be poor historian at times, would recommend Brain MRI to r/o dementia vs brain metastasis and Psychiatry consult to assess for capacity Code(s): K63.89 - OTHER SPECIFIED DISEASES OF INTESTINE (3) Ascites Assessment/Plan: -s/p paracentesis with IR yesterday -pending fluid cytology results -start Aldactone 50mg daily~monitor BUN/Cr daily to avoid CRI -daily weights Code(s): R18.8 - OTHER ASCITES
[2019-06-27] MEDS: SODIUM CHLORIDE 0.9%/KCL 20 MEQ/1,000 ML INFUS.BAG IV SCH (12:19)
[2019-06-27 13:11] LABS: BODY FLUID ALBUMIN 1.1 g/dL (Not Estab.)
--- NOTE | 2019-06-27 13:37 | PN ---
Physical Exam: SUBJECTIVE: Patient seen and examined 74 y/o F, pmh of rectal cancer, DM, htn, urge incontinence was sent to the ED by Dr. Louis her oncologist, for abdominal distention accompanied w/ one episode of NBNB vomiting is being treated for large bowel obstruction 2/2 to sigmoid cancer. Pt appears comfortable and is not in any pain. Pt is Asymptomatic currently and afebrile. Pt stated that she understands she needs surgery and agrees to undergo surgery. Pt has had bowel movements and urinated. No overnight events. Denies fevers, chills, n/v/d, chest pain, sob, numbness or tingling, sore throat, abdominal pain, back pain. OBJECTIVE: Vital Signs Period Temp Pulse Resp BP Sys/Dennison Pulse Ox Last 24 Hr 98.0 F-98.7 F 62-67 17-18 115-125/59-61 95-95 GENERAL: The patient is awake, alert, and fully oriented, in no acute distress. EYES: PERRL, extraocular movements intact ENT: oropharynx clear without exudates, moist mucous membranes. NECK: supple. No LAD, LUNGS: Breath sounds equal, clear to auscultation bilaterally, no wheezes, no crackles, HEART: Regular rate and rhythm, S1, S2 without murmur, rub or gallop. ABDOMEN: Distended, tympanic to percussion, mild shifting dullness, nontender, hyperactive bowel sounds, no guarding, no rebound EXTREMITIES: 2+ pulses, mild swelling b/l NEUROLOGICAL: Cranial nerves II through XII grossly intact. Strength 5/5 b/l UE and LE, sensation intact b/l UE and LE SKIN: Warm, dry, Laboratory Results - last 24 hr CBC,CMP WBC 5.6 K/mm3 (4.0-10.0) 06/27/19 06:55 RBC 3.27 M/mm3 (3.60-5.2) L 06/27/19 06:55 Hgb 11.4 GM/dL (10.7-15.3) 06/27/19 06:55 Hct 33.6 % (32.4-45.2) 06/27/19 06:55 MCV 102.5 fl (80-96) H 06/27/19 06:55 MCH 34.9 pg (25.7-33.7) H 06/27/19 06:55 MCHC 34.1 g/dl (32.0-36.0) 06/27/19 06:55 RDW 20.0 % (11.6-15.6) H 06/27/19 06:55 Plt Count 127 K/MM3 (134-434) L 06/27/19 06:55 MPV 8.3 fl (7.5-11.1) 06/27/19 06:55 Absolute Neuts (auto) 3.6 K/mm3 (1.5-8.0) 06/27/19 06:55 Neutrophils % 64.8 % (42.8-82.8) 06/27/19 06:55 Lymphocytes % 18.3 % (8-40) D 06/27/19 06:55 Monocytes % 16.1 % (3.8-10.2) H 06/27/19 06:55 Eosinophils % 0.6 % (0-4.5) 06/27/19 06:55 Basophils % 0.2 % (0-2.0) 06/27/19 06:55 Nucleated RBC % 0 % (0-0) 06/27/19 06:55 Sodium 144 mmol/L (136-145) 06/27/19 06:55 Potassium 3.5 mmol/L (3.5-5.1) 06/27/19 06:55 Chloride 113 mmol/L (98-107) H 06/27/19 06:55 Carbon Dioxide 21 mmol/L (21-32) 06/27/19 06:55 Anion Gap 10 MMOL/L (8-16) 06/27/19 06:55 BUN 16.8 mg/dL (7-18) 06/27/19 06:55 Creatinine 0.9 mg/dL (0.55-1.3) 06/27/19 06:55 Est GFR (CKD-EPI)AfAm 74.04 06/27/19 06:55 Est GFR (CKD-EPI)NonAf 63.88 06/27/19 06:55 POC Glucometer 82 UNITS (80-120) 06/27/19 12:15 Random Glucose 84 mg/dL (74-106) 06/27/19 06:55 Lactic Acid 1.7 mmol/L (0.4-2.0) 06/25/19 17:38 Calcium 8.0 mg/dL (8.5-10.1) L 06/27/19 06:55 Phosphorus 2.3 mg/dL (2.5-4.9) L 06/26/19 11:05 Magnesium 1.7 mg/dL (1.8-2.4) L 06/26/19 11:05 Total Bilirubin 1.1 mg/dL (0.2-1) H 06/27/19 06:55 AST 29 U/L (15-37) 06/27/19 06:55 ALT 19 U/L (13-61) 06/27/19 06:55 Alkaline Phosphatase 74 U/L (45-117) 06/27/19 06:55 Creatine Kinase 101 U/L (26-192) 06/25/19 19:51 Troponin I < 0.02 ng/ml (0.00-0.05) 06/25/19 19:51 Total Protein 5.7 g/dl (6.4-8.2) L 06/27/19 06:55 Albumin 2.2 g/dl (3.4-5.0) L 06/27/19 06:55 Lipase 53 U/L (73-393) L 06/25/19 19:51 Carcinoembryonic Ag 42.7 ng/mL (0.0-4.7) H 06/26/19 11:05 Active Medications Current Medications Potassium Chloride/Sodium Chloride (Ns+20 Meq Kcl -) 20 meq in 1,000 mls @ 75 mls/hr IV [facility]IR [facility] Last Admin: 06/28/19 00:03 Dose: Not Given Insulin Aspart (Novolog Vial Sliding Scale -) 1 vial SQ [facility]; Protocol Last Admin: 06/27/19 22:43 Dose: Not Given Morphine Sulfate (Morphine Sulfate) 1 mg IVPUSH Q4H PRN PRN Reason: PAIN LEVEL 1-5 ASSESSMENT/PLAN: 74 y/o F, pmh of sigmoid cancer, DM, htn, urge incontinence was sent to the ED by Dr. Louis her oncologist, for abdominal distention 2/2 to LBO #Large Bowel obstruction 2/2 to malignancy of the sigmoid colon-Stage IV CT A/P- possible focal concentric wall thickening within the lower third of sigmoid colon possibly representing an obstructing neoplastic lesion Surgery consulted- Dr. Carver agrees to surgery-scheduled for friday 06/29 Keep NPO NGT decompression as per surgery f/u oncology outpt- Dr. Louis Cardio cleared pt for surgery- Given her metastatic cancer and need for intervention would not pursue and ischemia testing at the moment that would delay intervention. Echocardiogram 06/26/19 normal LVEF and no significant valve disease. EKG: sinus rhythm with inferior and anterolateral ischemic changes. CXR ordered- LLL of lung collapse suspected, left effusion TSH, Free T4+T3 ordered As per GI, recommends Aldactone- will consider in the am #Ascites IR drained ascites- will sent fluid to cytology- f/u w/ pathology #Urinary retention Dunne inserted continue oxybutinin after med rec #DVT ppx SCDs #DM Give meds if glucose >200 Hold metformin Dispo: f/u scheduled surgery, NGT decompression, monitor glucose, keep NPO Visit type - Emergency Visit Emergency Visit: Yes ED Registration Date: 06/25/19 Care time: The patient presented to the Emergency Department on the above date and was hospitalized for further evaluation of their emergent condition. - New Patient This patient is new to me today: Yes Date on this admission: 07/06/19 - Critical Care Critical Care patient: No - Discharge Referral Referred to [facility] Med P.C.: No ATTENDING PHYSICIAN STATEMENT I saw and evaluated the patient. I reviewed the resident's note and discussed the case with the resident. I agree with the resident's findings and plan as documented. SUBJECTIVE: OBJECTIVE: ASSESSMENT AND PLAN:
--- NOTE | 2019-06-27 14:44 | PN ---
Progress Note, Physician - Current Medication List Current Medications: Active Medications Potassium Chloride/Sodium Chloride (Ns+20 Meq Kcl -) 20 meq in 1,000 mls @ 75 mls/hr IV ASDIR [facility] Last Admin: 06/27/19 12:19 Dose: 75 mls/hr Insulin Aspart (Novolog Vial Sliding Scale -) 1 vial SQ ACHS [facility]; Protocol Last Admin: 06/27/19 12:16 Dose: Not Given Morphine Sulfate (Morphine Sulfate) 1 mg IVPUSH Q4H PRN PRN Reason: PAIN LEVEL 1-5 - Objective Vital Signs: Vital Signs Temperature 99.0 F 06/27/19 13:24 Pulse Rate 66 06/27/19 13:24 Respiratory Rate 18 06/27/19 13:24 Blood Pressure 118/61 06/27/19 13:24 O2 Sat by Pulse Oximetry (%) 98 06/27/19 10:00 Labs: CBC, BMP 06/27/19 06:55 06/27/19 06:55 INR, PTT INR 1.21 (0.83-1.09) H 06/26/19 11:05 Problem List - Problems (1) Mass of colon Code(s): K63.89 - OTHER SPECIFIED DISEASES OF INTESTINE (2) Large bowel obstruction Code(s): K56.609 - UNSP INTESTNL OBST, UNSP TO PARTIAL VERSUS COMPLETE OBST (3) Liver metastasis Code(s): C78.7 - SECONDARY MALIG NEOPLASM OF LIVER AND INTRAHEPATIC BILE DUCT (4) Ascites Code(s): R18.8 - OTHER ASCITES Assessment/Plan Surgery : Patient remains distended in her abdomen. S/P aspiration of ascitic fluid , for cytology. Abdominal X-ray shows distended intestine , suggestive of obstruction. Patient is made aware. She is explained the need for colonic diversion of stool with proximal colostomy. Consent obtained. She understands that this is a palliative procedure and will not prolong her life , or prognosis. She is scheduled for surgery on Tuesday , 06/29/2019.
--- NOTE | 2019-06-27 15:12 | CON.CARD ---
Consult Consult Specialty:: Cardiology Referred by:: Fuentes Carrillo Reason for Consultation:: Preop - History of Present Illness Chief Complaint: Abdominal distention History of Present Illness: 74 year old female with a pmhx of dm, htn, and rectal cancer admitted with abdominal distention. Currently undergoing chemotherapy. CT abdomen showed increase in abdominal and pelvic ascites and increased colonic distention with focal concentric wall thickening concern for obstructive neoplastic lesion with multiple hepatic lesions concern for metastatic disease and lymphadenopathy. Recent Colonoscopy done in 12/2018 which found mass in rectum with pathology showing invasive adenocarcinoma. Prior CT scan from 12/2018 shows multiple pulmonary nodules strongly suspicious for metastatic disease, multiple liver lesions strongly suspicious of metastatic disease, enlarged adrenal glands possibly related to additional metastases, extensive retroperitoneal lymphadenopathy, marked thichening and irregularity of the mid sigmoid colon suspicious for malignancy. Being planned for possible colon resection surgery or colon/rectal stenting. Patient denies any cardiac history. No chest pain or sob. Says prior to this admission could walk good distances. No pnd, orthopnea, or palpitations. Echocardiogram 06/26/19 normal LVEF and no significant valve disease. EKG: sinus rhythm with inferior and anterolateral ischemic changes. 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 Known to have metastasis to liver , lung , ascites.) ...: No Endocrine: Yes: Diabetes Mellitus - Alcohol/Substance Use Hx Alcohol Use: No - Smoking History Smoking history: Never smoked Have you smoked in the past 12 months: No - Social History ADL: Independent History of Recent Travel: No Home Medications - Allergies Allergies/Adverse Reactions: Allergies Allergy/AdvReac Type Severity Reaction Status Date / Time No Known Allergies Allergy Verified 01/08/19 20:04 - Home Medications Home Medications: Ambulatory Orders Carvedilol [Coreg -] 25 mg PO BID 01/08/19 Famotidine [Pepcid] 40 mg PO DAILY 01/08/19 Hydrochlorothiazide [Hctz -] 12.5 mg PO DAILY 01/08/19 Methimazole [Tapazole] 5 mg PO BID 01/08/19 Oxybutynin Chloride [Ditropan Xl] 10 mg PO DAILY 01/08/19 Potassium Chloride [Klor-Con M10] 10 meq PO DAILY 01/08/19 Metformin HCl [Glucophage] 500 tablet PO BID 06/26/19 Vital Signs: Vital Signs Temperature 99.0 F 06/27/19 13:24 Pulse Rate 66 06/27/19 13:24 Respiratory Rate 18 06/27/19 13:24 Blood Pressure 118/61 06/27/19 13:24 O2 Sat by Pulse Oximetry (%) 98 06/27/19 10:00 Constitutional: Yes: No Distress Neck: Yes: Supple Respiratory: Yes: CTA Bilaterally Cardiovascular: Yes: Regular Rate and Rhythm JVD: No Carotid Bruit: No Heart Sounds: Yes: S1, S2 Murmur: No: Systolic Murmur Edema: No - Other Data Labs, Other Data: CBC, BMP 06/27/19 06:55 06/27/19 06:55 INR, PTT INR 1.21 (0.83-1.09) H 06/26/19 11:05 Imaging - Results Chest X-ray: Report Reviewed EKG: Image Reviewed Assessment/Plan 74 year old female with a pmhx of dm, htn, and rectal cancer admitted with abdominal distention. Currently undergoing chemotherapy. CT abdomen showed increase in abdominal and pelvic ascites and increased colonic distention with focal concentric wall thickening concern for obstructive neoplastic lesion with multiple hepatic lesions concern for metastatic disease and lymphadenopathy. Recent Colonoscopy done in 12/2018 which found mass in rectum with pathology showing invasive adenocarcinoma. Prior CT scan from 12/2018 shows multiple pulmonary nodules strongly suspicious for metastatic disease, multiple liver lesions strongly suspicious of metastatic disease, enlarged adrenal glands possibly related to additional metastases, extensive retroperitoneal lymphadenopathy, marked thichening and irregularity of the mid sigmoid colon suspicious for malignancy. Being planned for possible colon resection surgery or colon/rectal stenting. Patient denies any cardiac history. No chest pain or sob. Says prior to this admission could walk good distances. No pnd, orthopnea, or palpitations. Echocardiogram 06/26/19 normal LVEF and no significant valve disease. EKG: sinus rhythm with inferior and anterolateral ischemic changes. 1) Rectal cancer with need for intervetion for partial obstruction. Normal LVEF and no significant valve disease. Patient with ischemic ecg changes but with no cardiac complaints. Given her metastatic cancer and need for intervention would not pursue and ischemia testing that would delay intervention. Can presume she might have CAD as a risk factor for her surgery. Not currently on beta carleen as bp has not allowed (was on carvedilol as outpatient). If in future bp and HR allow than re -consider bblocker. No further cardiac testing at this time indicated. Proceed with cancer care as deemed necessary by oncologist.
--- NOTE | 2019-06-27 15:13 | EKG ---
Test Reason : Blood Pressure : / mmHG Vent. Rate : 063 BPM Atrial Rate : 063 BPM P-R Int : 092 ms QRS Dur : 094 ms QT Int : 402 ms P-R-T Axes : 059 016 206 degrees QTc Int : 411 ms POOR DATA QUALITY, INTERPRETATION MAY BE ADVERSELY AFFECTED SINUS RHYTHM WITH SHORT [place] NONSPECIFIC ST AND T WAVE ABNORMALITY ABNORMAL ECG WHEN COMPARED WITH ECG OF 25-JUN-2019 18:57, PREMATURE SUPRAVENTRICULAR COMPLEXES ARE NO LONGER PRESENT T WAVE INVERSION NO LONGER EVIDENT IN ANTERIOR LEADS Confirmed by [place], SAUL ([id number]) on 06/27/2019 3:13:23 PM Referred By: RADHA ALANIS DR Confirmed By:SAUL VALENTINE MD
--- NOTE | 2019-06-27 19:36 | PN ---
Teaching Attending Note Name of Resident: Ellis Bradley ATTENDING PHYSICIAN STATEMENT I saw and evaluated the patient. I reviewed the resident's note and discussed the case with the resident. I agree with the resident's findings and plan as documented. SUBJECTIVE: Patient has no new complains. distended abdomen. OBJECTIVE: Vital Signs Temperature 98.6 F 06/27/19 15:00 Pulse Rate 66 06/27/19 15:00 Respiratory Rate 18 06/27/19 19:07 Blood Pressure 120/60 06/27/19 15:00 O2 Sat by Pulse Oximetry (%) 98 06/27/19 19:07 GENERAL: The patient is awake, alert, and fully oriented, in no acute distress. HEAD: Normal with no signs of trauma. EYES: PERRL, extraocular movements intact, sclera anicteric, conjunctiva clear. ENT: Ears normal, oropharynx clear without exudates, moist mucous membranes. NECK: Trachea midline, full range of motion, supple. LUNGS: Breath sounds equal, clear to auscultation bilaterally, no wheezes, no crackles, no accessory muscle use. HEART: Regular rate and rhythm, S1, S2 without murmur, rub or gallop. ABDOMEN: Soft, diistended, +BS , no guarding, no rebound. EXTREMITIES: 2+ pulses, warm, well-perfused, no edema. NEUROLOGICAL: Cranial nerves II through XII grossly intact. Normal speech, gait not observed. PSYCH: Normal mood, normal affect. SKIN: Warm, dry, normal turgor, no rashes or lesions noted CBCD WBC 5.6 K/mm3 (4.0-10.0) 06/27/19 06:55 RBC 3.27 M/mm3 (3.60-5.2) L 06/27/19 06:55 Hgb 11.4 GM/dL (10.7-15.3) 06/27/19 06:55 Hct 33.6 % (32.4-45.2) 06/27/19 06:55 MCV 102.5 fl (80-96) H 06/27/19 06:55 MCHC 34.1 g/dl (32.0-36.0) 06/27/19 06:55 RDW 20.0 % (11.6-15.6) H 06/27/19 06:55 Plt Count 127 K/MM3 (134-434) L 06/27/19 06:55 MPV 8.3 fl (7.5-11.1) 06/27/19 06:55 CMP Sodium 144 mmol/L (136-145) 06/27/19 06:55 Potassium 3.5 mmol/L (3.5-5.1) 06/27/19 06:55 Chloride 113 mmol/L (98-107) H 06/27/19 06:55 Carbon Dioxide 21 mmol/L (21-32) 06/27/19 06:55 Anion Gap 10 MMOL/L (8-16) 06/27/19 06:55 BUN 16.8 mg/dL (7-18) 06/27/19 06:55 Creatinine 0.9 mg/dL (0.55-1.3) 06/27/19 06:55 Random Glucose 84 mg/dL (74-106) 06/27/19 06:55 Calcium 8.0 mg/dL (8.5-10.1) L 06/27/19 06:55 Total Bilirubin 1.1 mg/dL (0.2-1) H 06/27/19 06:55 AST 29 U/L (15-37) 06/27/19 06:55 ALT 19 U/L (13-61) 06/27/19 06:55 Alkaline Phosphatase 74 U/L (45-117) 06/27/19 06:55 Total Protein 5.7 g/dl (6.4-8.2) L 06/27/19 06:55 Albumin 2.2 g/dl (3.4-5.0) L 06/27/19 06:55 CARDIAC ENZYMES Creatine Kinase 101 U/L (26-192) 06/25/19 19:51 Troponin I < 0.02 ng/ml (0.00-0.05) 06/25/19 19:51 Current Medications Generic Name Dose Route Start Last Admin Trade Name Freq PRN Reason Stop Dose Admin Potassium Chloride/Sodium Chloride 20 meq in 1,000 mls @ 75 mls/hr 06/26/19 15 :03 06/27/19 12:19 Ns+20 Meq Kcl - IV 75 mls/hr ASDIR CHITRA Administration Insulin Aspart 1 vial 06/26/19 07:00 06/27/19 18:01 Novolog Vial Sliding Scale - SQ Not Given ACHS CHITRA Protocol Morphine Sulfate 1 mg 06/26/19 01:47 Morphine Sulfate IVPUSH Q4H PRN PAIN LEVEL 1-5 Home Medications Medication Instructions Recorded Carvedilol [Coreg -] 25 mg PO BID 01/08/19 Famotidine [Pepcid] 40 mg PO DAILY 01/08/19 Hydrochlorothiazide [Hctz -] 12.5 mg PO DAILY 01/08/19 Methimazole [Tapazole] 5 mg PO BID 01/08/19 Oxybutynin Chloride [Ditropan Xl] 10 mg PO DAILY 01/08/19 Potassium Chloride [Klor-Con M10] 10 meq PO DAILY 01/08/19 Metformin HCl [Glucophage] 500 tablet PO BID 06/26/19 Microbiology 06/26/19 12:15 Abdomen AFB Smear Concentration - Final 06/26/19 12:15 Abdomen Mycobacterial Culture - Preliminary 06/26/19 12:15 Abdomen Gram Stain - Final 06/26/19 12:15 Abdomen Body Fluid Culture - Final NO GROWTH OF AEROBIC ORGANISMS AFTER 48 HOURS INCUBATION 06/26/19 12:15 Abdomen Anaerobic Culture - Final NO ANAEROBES WERE ISOLATED 06/26/19 12:15 Abdomen NEEL Preparation - Preliminary 06/26/19 12:15 Abdomen Fungal Culture - Preliminary Echocardiogram 06/26/19 normal LVEF and no significant valve disease. EKG: sinus rhythm with inferior and anterolateral ischemic changes. ASSESSMENT AND PLAN: Patient is a 74 y/o FEMALE with PMHx of HTN, with a recent diagnosis of colon cancer on chemo who presented with Abdominal distention and vomiting and was found to have large bowel obstruction. # Large bowel obstruction due to sigmoid mass. Ct images and report reviewed. NPO, NG-Tube, IVF - Patient declined sx earlier with Dr. Carver. I had a prolonged discussion with patient who agreed to sx which might include a colostomy. will see and discuss with the patient for possible sx # Colon cancer with Mets to liver and lymphadenopathy in pelvis. per patient, cancer was not metastatic before. last chemo about 2 weeks ago paracentesis was done. follow up cytology , analysis is still pending # pleural effusions and ascitis , could be malignant or due to the abdominal process ( obstruction ) ,or less likely due to heart failure # H/o HTN: hold meds, nl BP for now # Hypophosphatemia, hypomagnesemia, hypokalemia: replete # H/o T2DM : hold metformin, sSI with coverage
[2019-06-27] MEDS ORDERED: DEXTROSE 50%-WATER 25 GM/50 ML DISP.SYRIN IVPUSH ONE (23:50)
[2019-06-28] MEDS: SODIUM CHLORIDE 0.9%/KCL 20 MEQ/1,000 ML INFUS.BAG IV SCH (00:03)
[2019-06-28] MEDS ORDERED: DEXTROSE 50%-WATER 25 GM/50 ML DISP.SYRIN ONE (00:13)
[2019-06-28] MEDS ORDERED: DEXTROSE 50%-WATER 25 GM/50 ML DISP.SYRIN IVPUSH ONE (00:15)
[2019-06-28] MEDS: INSULIN SLIDING SCALE (NOVOLOG) 1 VIAL SQ SCH ×3 (06:45→18:16)
[2019-06-28 07:33] LABS: BASO % 0.3 % (0-2.0); EOS % 0.6 % (0-4.5); HEMATOCRIT 32.4 % (32.4-45.2); LYMPH % 16.7 % (8-40); MCH 34.9 pg (25.7-33.7); MCHC 33.8 g/dl (32.0-36.0); MEAN CELL VOLUME 103.3 fl (80-96); MONO % 18.4 % (3.8-10.2); PLATELET COUNT 130 K/MM3 (134-434); RBC 3.14 M/mm3 (3.60-5.2); RDW 20.3 % (11.6-15.6); WHITE BLOOD COUNT 5.1 K/mm3 (4.0-10.0)
--- NOTE | 2019-06-28 08:22 | PN ---
Progress Note, Physician History of Present Illness: GI FOLLOW UP NOTE Patient examined and case discussed with Dr oMore Patient examined alert and awake, lying in bed. Still with NGT to [facility]. Patient denies nasuea, vomiting, abdominal pain, diarrhea, rectal bleeding or blood in stool. Repeat Abdominal Xray shows abnormal gas pattern with gaseous distention of colon with no extraluminal air. Dr Moore spoke with patient family yesterday and they wish for transfer to [facility] for colonic stent. - Current Medication List Current Medications: Active Medications Potassium Chloride/Sodium Chloride (Ns+20 Meq Kcl -) 20 meq in 1,000 mls @ 75 mls/hr IV ASDIR CHITRA Last Admin: 06/28/19 00:03 Dose: Not Given Insulin Aspart (Novolog Vial Sliding Scale -) 1 vial SQ ACHS CHITRA; Protocol Last Admin: 06/28/19 06:45 Dose: Not Given Morphine Sulfate (Morphine Sulfate) 1 mg IVPUSH Q4H PRN PRN Reason: PAIN LEVEL 1-5 Spironolactone (Aldactone -) 50 mg PO DAILY CHITRA - Objective Vital Signs: Vital Signs Temperature 98.5 F 06/28/19 06:00 Pulse Rate 69 06/28/19 06:00 Respiratory Rate 18 06/28/19 06:00 Blood Pressure 113/55 L 06/28/19 06:00 O2 Sat by Pulse Oximetry (%) 98 06/27/19 19:07 Constitutional: Yes: No Distress, Calm Eyes: Yes: Conjunctiva Clear HENT: Yes: Atraumatic Cardiovascular: Yes: Regular Rate and Rhythm Respiratory: Yes: Regular, CTA Bilaterally Gastrointestinal: Yes: Normal Bowel Sounds, Soft, Ascites Neurological: Yes: Alert, Oriented Psychiatric: Yes: Alert Labs: INR, PTT INR 1.21 (0.83-1.09) H 06/26/19 11:05 <Mary Alexis - Last Filed: 06/28/19 08:16> - Current Medication List Current Medications: Active Medications Potassium Chloride/Sodium Chloride (Ns+20 Meq Kcl -) 20 meq in 1,000 mls @ 75 mls/hr IV ASDIR CHITRA Last Admin: 06/28/19 00:03 Dose: Not Given Insulin Aspart (Novolog Vial Sliding Scale -) 1 vial SQ ACHS CHITRA; Protocol Last Admin: 06/28/19 06:45 Dose: Not Given Morphine Sulfate (Morphine Sulfate) 1 mg IVPUSH Q4H PRN PRN Reason: PAIN LEVEL 1-5 Spironolactone (Aldactone -) 50 mg PO DAILY [facility] Last Admin: 06/28/19 09:39 Dose: 50 mg - Objective Vital Signs: Vital Signs Temperature 98.1 F 06/28/19 14:00 Pulse Rate 66 06/28/19 14:00 Respiratory Rate 20 06/28/19 14:00 Blood Pressure 128/59 L 06/28/19 14:00 O2 Sat by Pulse Oximetry (%) 98 06/27/19 19:07 Labs: CBC, BMP 06/28/19 07:20 06/28/19 07:20 INR, PTT INR 1.19 (0.83-1.09) H 06/28/19 07:20 <Eren Moore - Last Filed: 06/28/19 17:30> Problem List - Problems (1) Large bowel obstruction Assessment/Plan: -secondary to Sigmoid Mass -Surgery on board and recommend diverting colostomy -NPO -NGT to [facility] -transfer to [facility] with Dr Paula for colonic stent placement Code(s): K56.609 - UNSP INTESTNL OBST, UNSP TO PARTIAL VERSUS COMPLETE OBST (2) Mass of colon Assessment/Plan: -Oncology on board -Abd/Pelvic CT scan reviewed -CEA 42.7 -patient noted to be poor historian at times, would recommend Brain MRI to r/o dementia vs brain metastasis and Psychiatry consult to assess for capacity Code(s): K63.89 - OTHER SPECIFIED DISEASES OF INTESTINE (3) Ascites Assessment/Plan: -s/p paracentesis with IR yesterday -pending fluid cytology results -start Aldactone 50mg daily~monitor BUN/Cr daily to avoid CRI -daily weights Code(s): R18.8 - OTHER ASCITES <Mary Alexis - Last Filed: 06/28/19 08:16> - Problems (1) Ascites Code(s): R18.8 - OTHER ASCITES (2) Bowel obstruction Code(s): K56.609 - UNSP INTESTNL OBST, UNSP TO PARTIAL VERSUS COMPLETE OBST <Eren Moore - Last Filed: 06/28/19 17:30>
[2019-06-28 08:29] LABS: ALBUMIN 2.1 g/dl (3.4-5.0); BILIRUBIN,TOTAL 1.4 mg/dL (0.2-1); BLOOD UREA NITROGEN 13.9 mg/dL (7-18); CALCIUM 8.1 mg/dL (8.5-10.1); CREATININE 0.8 mg/dL (0.55-1.3); POTASSIUM 3.5 mmol/L (3.5-5.1); TOT PROT 5.5 g/dl (6.4-8.2)
[2019-06-28 09:00] LABS: INR 1.19 (0.83-1.09); PROTHROMBIN TIME (PATIENT) 14.1 SEC (9.7-13.0)
[2019-06-28] MEDS ORDERED: SPIRONOLACTONE 25 MG TABLET (FP) PO SCH (10:00)
[2019-06-28 15:49] VITALS: BP 128/59; PULSE 66; TEMP 98.1
--- NOTE | 2019-06-28 16:35 | PN ---
Progress Note, Physician - Current Medication List Current Medications: Active Medications Potassium Chloride/Sodium Chloride (Ns+20 Meq Kcl -) 20 meq in 1,000 mls @ 75 mls/hr IV [facility] Last Admin: 06/28/19 00:03 Dose: Not Given Insulin Aspart (Novolog Vial Sliding Scale -) 1 vial SQ ACHS [facility]; Protocol Last Admin: 06/28/19 06:45 Dose: Not Given Morphine Sulfate (Morphine Sulfate) 1 mg IVPUSH Q4H PRN PRN Reason: PAIN LEVEL 1-5 Spironolactone (Aldactone -) 50 mg PO DAILY [facility] Last Admin: 06/28/19 09:39 Dose: 50 mg - Objective Vital Signs: Vital Signs Temperature 98.1 F 06/28/19 14:00 Pulse Rate 66 06/28/19 14:00 Respiratory Rate 20 06/28/19 14:00 Blood Pressure 128/59 L 06/28/19 14:00 O2 Sat by Pulse Oximetry (%) 98 06/27/19 19:07 Labs: CBC, BMP 06/28/19 07:20 06/28/19 07:20 INR, PTT INR 1.19 (0.83-1.09) H 06/28/19 07:20 Problem List - Problems (1) Mass of colon Code(s): K63.89 - OTHER SPECIFIED DISEASES OF INTESTINE (2) Large bowel obstruction Code(s): K56.609 - UNSP INTESTNL OBST, UNSP TO PARTIAL VERSUS COMPLETE OBST (3) Liver metastasis Code(s): C78.7 - SECONDARY MALIG NEOPLASM OF LIVER AND INTRAHEPATIC BILE DUCT (4) Ascites Code(s): R18.8 - OTHER ASCITES Assessment/Plan Surgery: patient is stable. Patient is being transferred to [facility] for stenting of the colonic stricture bt .
--- NOTE | 2019-06-28 17:00 | DS ---
Physical Exam: SUBJECTIVE: Patient seen and examined. Patient is stable, asymptomatic and afebrile. Patient has no c.o or issues. Patient abdomen is distended but is able to pass stool. Denies f/c/n/v/d, sob, chest pain, abdominal pain. OBJECTIVE: Vital Signs Period Temp Pulse Resp BP Sys/Dennison Pulse Ox Last 24 Hr 98.1 F-98.6 F 66-69 18-20 113-128/53-59 98 PHYSICAL EXAM GENERAL: The patient is awake, alert, and fully oriented, in no acute distress. EYES: PERRL, extraocular movements intact ENT: oropharynx clear without exudates, moist mucous membranes. NECK: supple. No LAD, LUNGS: Breath sounds equal, clear to auscultation bilaterally, no wheezes, no crackles, HEART: Regular rate and rhythm, S1, S2 without murmur, rub or gallop. ABDOMEN: Distended, tympanic to percussion, mild shifting dullness, nontender, hyperactive bowel sounds, no guarding, no rebound EXTREMITIES: 2+ pulses, mild swelling b/l NEUROLOGICAL: Cranial nerves II through XII grossly intact. Strength 5/5 b/l UE and LE, sensation intact b/l UE and LE SKIN: Warm, dry, LABS Laboratory Results - last 24 hr CBC,CMP WBC 5.1 K/mm3 (4.0-10.0) 06/28/19 07:20 RBC 3.14 M/mm3 (3.60-5.2) L 06/28/19 07:20 Hgb 11.0 GM/dL (10.7-15.3) 06/28/19 07:20 Hct 32.4 % (32.4-45.2) 06/28/19 07:20 MCV 103.3 fl (80-96) H 06/28/19 07:20 MCH 34.9 pg (25.7-33.7) H 06/28/19 07:20 MCHC 33.8 g/dl (32.0-36.0) 06/28/19 07:20 RDW 20.3 % (11.6-15.6) H 06/28/19 07:20 Plt Count 130 K/MM3 (134-434) L 06/28/19 07:20 MPV 8.0 fl (7.5-11.1) 06/28/19 07:20 Absolute Neuts (auto) 3.3 K/mm3 (1.5-8.0) 06/28/19 07:20 Neutrophils % 64.0 % (42.8-82.8) 06/28/19 07:20 Lymphocytes % 16.7 % (8-40) 06/28/19 07:20 Monocytes % 18.4 % (3.8-10.2) H 06/28/19 07:20 Eosinophils % 0.6 % (0-4.5) 06/28/19 07:20 Basophils % 0.3 % (0-2.0) 06/28/19 07:20 Nucleated RBC % 0 % (0-0) 06/28/19 07:20 Sodium 147 mmol/L (136-145) H 06/28/19 07:20 Potassium 3.5 mmol/L (3.5-5.1) 06/28/19 07:20 Chloride 119 mmol/L (98-107) H 06/28/19 07:20 Carbon Dioxide 19 mmol/L (21-32) L 06/28/19 07:20 Anion Gap 10 MMOL/L (8-16) 06/28/19 07:20 BUN 13.9 mg/dL (7-18) 06/28/19 07:20 Creatinine 0.8 mg/dL (0.55-1.3) 06/28/19 07:20 Est GFR (CKD-EPI)AfAm 85.37 06/28/19 07:20 Est GFR (CKD-EPI)NonAf 73.65 06/28/19 07:20 POC Glucometer 79 UNITS (80-120) 06/28/19 11:29 Random Glucose 82 mg/dL (74-106) 06/28/19 07:20 Lactic Acid 1.7 mmol/L (0.4-2.0) 06/25/19 17:38 Calcium 8.1 mg/dL (8.5-10.1) L 06/28/19 07:20 Phosphorus 2.3 mg/dL (2.5-4.9) L 06/26/19 11:05 Magnesium 1.7 mg/dL (1.8-2.4) L 06/26/19 11:05 Total Bilirubin 1.4 mg/dL (0.2-1) H 06/28/19 07:20 AST 31 U/L (15-37) 06/28/19 07:20 ALT 18 U/L (13-61) 06/28/19 07:20 Alkaline Phosphatase 70 U/L (45-117) 06/28/19 07:20 Creatine Kinase 101 U/L (26-192) 06/25/19 19:51 Troponin I < 0.02 ng/ml (0.00-0.05) 06/25/19 19:51 Total Protein 5.5 g/dl (6.4-8.2) L 06/28/19 07:20 Albumin 2.1 g/dl (3.4-5.0) L 06/28/19 07:20 Lipase 53 U/L (73-393) L 06/25/19 19:51 Carcinoembryonic Ag 42.7 ng/mL (0.0-4.7) H 06/26/19 11:05 TSH 0.66 uIU/ml (0.358-3.74) 06/27/19 15:30 Free T4 1.56 ng/dl (0.76-1.46) H 06/27/19 15:30 HOSPITAL COURSE: Date of Admission:06/25/19 74 y/o F, pmh of sigmoid cancer, DM, htn, urge incontinence was sent to the ED by Dr. Louis her oncologist, for abdominal distention 2/2 to Large bowel obstruction. Patient was found to have a Stage IV sigmoid mass on CT a/p, which was the cause of her obstruction. Surgery-Dr Carver, GI-Dr Moore and oncologist Dr. Louis was consulted and patient was decompressed w/ NGT, kept NPO for surgery to remove the mass. As per patients family, they preferred GI treatment with colonic stenting to be done at [facility], therefore patient was prepped and transferred to [facility] for GI colonic placement under the care of Dr. Anca Paula. Further test were performed including labs, blood work, TSH, Free T4+T3 ordered Cardio cleared pt for surgery- Given her metastatic cancer and need for intervention would not pursue and ischemia testing at the moment that would delay intervention. Echocardiogram 06/26/19 normal LVEF and no significant valve disease. EKG: sinus rhythm with inferior and anterolateral ischemic changes. CXR ordered- LLL of lung collapse suspected, left effusion CT A/P- possible focal concentric wall thickening within the lower third of sigmoid colon possibly representing an obstructing neoplastic lesion Date of Discharge: 06/28/19 Minutes to complete discharge: 35 Discharge Summary Problems reviewed: Yes Reason For Visit: HISTORY OF MALIGNANT NEOPLASM OF RECTUM, ASCITES Current Active Problems Ascites (Acute) Bowel obstruction (Acute) Large bowel obstruction (Acute) Liver metastasis (Acute) Mass of colon (Acute) Condition: Stable - Instructions Referrals: Missy Segura MD [Primary Care Provider] - Disposition: TRANSFER ACUTE CARE/OTHER HOSP - Home Medications Comprehensive Discharge Medication List: Ambulatory Orders Carvedilol [Coreg -] 25 mg PO BID 01/08/19 Famotidine [Pepcid] 40 mg PO DAILY 01/08/19 Hydrochlorothiazide [Hctz -] 12.5 mg PO DAILY 01/08/19 Methimazole [Tapazole] 5 mg PO BID 01/08/19 Oxybutynin Chloride [Ditropan Xl] 10 mg PO DAILY 01/08/19 Potassium Chloride [Klor-Con M10] 10 meq PO DAILY 01/08/19 Metformin HCl [Glucophage] 500 tablet PO BID 06/26/19 This patient is new to me today: Yes Date on this admission: 07/03/19 Emergency Visit: Yes ED Registration Date: 06/25/19 Care time: The patient presented to the Emergency Department on the above date and was hospitalized for further evaluation of their emergent condition. Critical Care patient: No - Discharge Referral Referred to [facility] Med P.C.: No ATTENDING PHYSICIAN STATEMENT I saw and evaluated the patient. I reviewed the resident's note and discussed the case with the resident. I agree with the resident's findings and plan as documented. SUBJECTIVE: OBJECTIVE: ASSESSMENT AND PLAN:
--- NOTE | 2019-06-28 17:33 | PATH ---
Cytology Non-Gynecological Report Patient Name: JEMIMA LÓPEZ [facility]. Rec. #: [id number] /Age/Gender: 1945 (Age: 74) / F Account: [id number] Location: [facility] MED/SURG Taken: 06/26/2019 Received: 06/26/2019 Reported: 06/28/2019 Physicians: Mickie Steve M.D. Smitha Mellacheruvu, M.D. Specimen(s) Received A: ABDOMINAL FLUID B: ABDOMINAL FLUID Clinical History Ascites Final Diagnosis A-B. ABDOMINAL FLUID, PARACENTESIS: SATISFACTORY FOR EVALUATION. NO MALIGNANT CELLS IDENTIFIED. MESOTHELIAL CELLS PRESENT. Comment: History of proximal rectal adenocarcinoma noted. Electronically Signed Xuan Seymour M.D. Gross Description A. Approximately 50 cc of yellow cloudy fluid received fixed in 50% alcohol. One cytofunnel prepared and Pap stained. One cellblock prepared. B. Approximately 1900 cc of yellow fluid received fresh. One cytofunnel prepared and Pap stained. One cellblock prepared.
--- NOTE | 2019-06-28 18:15 | PN ---
Teaching Attending Note Name of Resident: Ellis Bradley ATTENDING PHYSICIAN STATEMENT I saw and evaluated the patient. I reviewed the resident's note and discussed the case with the resident. I agree with the resident's findings and plan as documented. SUBJECTIVE: no new changes, patient wants to go to [facility] for colonic stent. OBJECTIVE: Vital Signs Temperature 98.1 F 06/28/19 14:00 Pulse Rate 66 06/28/19 14:00 Respiratory Rate 20 06/28/19 14:00 Blood Pressure 128/59 L 06/28/19 14:00 O2 Sat by Pulse Oximetry (%) 98 06/27/19 19:07 GENERAL: The patient is awake, alert, and fully oriented, in no acute distress. HEAD: Normal with no signs of trauma. EYES: PERRL, extraocular movements intact, sclera anicteric, conjunctiva clear. ENT: Ears normal, oropharynx clear without exudates, moist mucous membranes. NECK: Trachea midline, full range of motion, supple. LUNGS: Breath sounds equal, clear to auscultation bilaterally, no wheezes, no crackles, no accessory muscle use. HEART: Regular rate and rhythm, S1, S2 without murmur, rub or gallop. ABDOMEN: Soft, distended, +BS , no guarding, no rebound. EXTREMITIES: 2+ pulses, warm, well-perfused, no edema. NEUROLOGICAL: Cranial nerves II through XII grossly intact. Normal speech, gait not observed. PSYCH: Normal mood, normal affect. SKIN: Warm, dry, normal turgor, no rashes or lesions noted CBCD WBC 5.1 K/mm3 (4.0-10.0) 06/28/19 07:20 RBC 3.14 M/mm3 (3.60-5.2) L 06/28/19 07:20 Hgb 11.0 GM/dL (10.7-15.3) 06/28/19 07:20 Hct 32.4 % (32.4-45.2) 06/28/19 07:20 MCV 103.3 fl (80-96) H 06/28/19 07:20 MCHC 33.8 g/dl (32.0-36.0) 06/28/19 07:20 RDW 20.3 % (11.6-15.6) H 06/28/19 07:20 Plt Count 130 K/MM3 (134-434) L 06/28/19 07:20 MPV 8.0 fl (7.5-11.1) 06/28/19 07:20 CMP Sodium 147 mmol/L (136-145) H 06/28/19 07:20 Potassium 3.5 mmol/L (3.5-5.1) 06/28/19 07:20 Chloride 119 mmol/L (98-107) H 06/28/19 07:20 Carbon Dioxide 19 mmol/L (21-32) L 06/28/19 07:20 Anion Gap 10 MMOL/L (8-16) 06/28/19 07:20 BUN 13.9 mg/dL (7-18) 06/28/19 07:20 Creatinine 0.8 mg/dL (0.55-1.3) 06/28/19 07:20 Random Glucose 82 mg/dL (74-106) 06/28/19 07:20 Calcium 8.1 mg/dL (8.5-10.1) L 06/28/19 07:20 Total Bilirubin 1.4 mg/dL (0.2-1) H 06/28/19 07:20 AST 31 U/L (15-37) 06/28/19 07:20 ALT 18 U/L (13-61) 06/28/19 07:20 Alkaline Phosphatase 70 U/L (45-117) 06/28/19 07:20 Total Protein 5.5 g/dl (6.4-8.2) L 06/28/19 07:20 Albumin 2.1 g/dl (3.4-5.0) L 06/28/19 07:20 CARDIAC ENZYMES Creatine Kinase 101 U/L (26-192) 06/25/19 19:51 Troponin I < 0.02 ng/ml (0.00-0.05) 06/25/19 19:51 Current Medications Generic Name Dose Route Start Last Admin Trade Name Freq PRN Reason Stop Dose Admin Potassium Chloride/Sodium Chloride 20 meq in 1,000 mls @ 75 mls/hr 06/26/19 15 :03 06/28/19 00:03 Ns+20 Meq Kcl - IV Not Given ASDIR CHITRA Insulin Aspart 1 vial 06/26/19 07:00 06/28/19 18:11 Novolog Vial Sliding Scale - SQ Not Given ACHS CHITRA Protocol Morphine Sulfate 1 mg 06/26/19 01:47 Morphine Sulfate IVPUSH Q4H PRN PAIN LEVEL 1-5 Spironolactone 50 mg 06/28/19 10:00 06/28/19 09:39 Aldactone - PO 50 mg DAILY [facility] Administration Home Medications Medication Instructions Recorded Carvedilol [Coreg -] 25 mg PO BID 01/08/19 Famotidine [Pepcid] 40 mg PO DAILY 01/08/19 Hydrochlorothiazide [Hctz -] 12.5 mg PO DAILY 01/08/19 Methimazole [Tapazole] 5 mg PO BID 01/08/19 Oxybutynin Chloride [Ditropan Xl] 10 mg PO DAILY 01/08/19 Potassium Chloride [Klor-Con M10] 10 meq PO DAILY 01/08/19 Metformin HCl [Glucophage] 500 tablet PO BID 06/26/19 Echocardiogram 06/26/19 normal LVEF and no significant valve disease. EKG: sinus rhythm with inferior and anterolateral ischemic changes. ASSESSMENT AND PLAN: Patient is a 74 y/o FEMALE with PMHx of HTN, with a recent diagnosis of colon cancer on chemo who presented with Abdominal distention and vomiting and was found to have large bowel obstruction. # Large bowel obstruction due to sigmoid mass. Ct images and report reviewed. NPO, NG-Tube,patient is being transferred to [facility] for colonic distention. PATIENT agreed for surgery yesterday, but after further discussion with dr.Lantin kohli, decided to have a colonic distention. # Colon cancer with Mets to liver and lymphadenopathy in pelvis. per patient, cancer was not metastatic before. last chemo about 2 weeks ago paracentesis was done. follow up cytology , analysis is still pending # pleural effusions and ascitis , could be malignant or due to the abdominal process ( obstruction ) ,or less likely due to heart failure # H/o HTN: hold meds, nl BP for now # Hypophosphatemia, hypomagnesemia, hypokalemia: replete # H/o T2DM : hold metformin, sSI with coverage Tx the patient for [facility] for colonic stent
== END 2019-06-28 19:20 | disposition short-term general hospital (02) | DRG 375 ==
LOC: JER 16:58 → JERBED 22:46 → J8W 06-26 05:33
PROVIDERS: ADMIT Internal Medicine; ATTEND Internal Medicine
PROC: 0W9G3ZX Drainage of Peritoneal Cavity, Percutaneous Approach, Diagnostic (ICD-10-PCS; principal; 2019-06-26)
DX: C19 Malignant neoplasm of rectosigmoid junction (principal); R18.8 Other ascites; K56.609 Unspecified intestinal obstruction, unspecified as to partial versus complete obstruction; C78.00 Secondary malignant neoplasm of unspecified lung; C78.7 Secondary malignant neoplasm of liver and intrahepatic bile duct; J90 Pleural effusion, not elsewhere classified; E83.42 Hypomagnesemia; E87.6 Hypokalemia; E83.39 Other disorders of phosphorus metabolism; R33.9 Retention of urine, unspecified; I10 Essential (primary) hypertension; E11.9 Type 2 diabetes mellitus without complications
CPT/HCPCS: 36415; 71045-TC-FY; 74018-TC-FY; 74021-TC-FY; 74177-TC; 76942-TC; 80053; 82042; 82150; 82378; 82465; 82550; 82945; 82962; 83605; 83615; 83690; 83735; 83986; 84100; 84157; 84439; 84443; 84478; 84481; 84484; 85025; 85610; 85730; 86850; 86900; 86901; 87070; 87075; 87102; 87116; 87205; 87206; 87210; 93005; 93010; 93306-TC; 93970-TC; 99285-25; J0131; J7030; Q9967

== ENCOUNTER 2019-07-11 07:10 | Inpatient (IN) | payer OTHER ==
[2019-07-11] MEDS ORDERED: DEXAMETHASONE SODIUM PHOSPHATE 10 MG, ONDANSETRON INJECTION 12 MG in SODIUM CHLORIDE 10... IVPB ONE (10:00)
[2019-07-11] MEDS ORDERED: ATROPINE SO4 0.4 MG/1 ML VIAL SQ ONE (10:00)
[2019-07-11] MEDS ORDERED: IRINOTECAN HCL 230 MG in DEXTROSE 5%-WATER - 500 ML IVPB ONE (10:30)
[2019-07-11 11:11] LABS: BASO % 0.3 % (0-2.0); EOS % 0.6 % (0-4.5); HEMATOCRIT 36.9 % (32.4-45.2); HEMOGLOBIN 12.4 GM/dL (10.7-15.3); LYMPH % 16.6 % (8-40); MCH 34.8 pg (25.7-33.7); MCHC 33.6 g/dl (32.0-36.0); MEAN CELL VOLUME 103.6 fl (80-96); MEAN PLT VOLUME 7.5 fl (7.5-11.1); NEUT % 69.5 % (42.8-82.8); PLATELET COUNT 132 K/MM3 (134-434); RBC 3.57 M/mm3 (3.60-5.2); RDW 20.2 % (11.6-15.6); WHITE BLOOD COUNT 5.6 K/mm3 (4.0-10.0)
[2019-07-11 11:46] LABS: ALBUMIN 2.5 g/dl (3.4-5.0); BILIRUBIN,DIRECT 0.7 mg/dL (0.0-0.2); BILIRUBIN,TOTAL 1.4 mg/dL (0.2-1); BLOOD UREA NITROGEN 15.8 mg/dL (7-18); CALCIUM 8.8 mg/dL (8.5-10.1); CREATININE 1.1 mg/dL (0.55-1.3); MAGNESIUM 1.9 mg/dL (1.8-2.4); POTASSIUM 4.2 mmol/L (3.5-5.1); TOT PROT 6.5 g/dl (6.4-8.2)
[2019-07-11] MEDS ORDERED: ATROPINE SO4 0.4 MG/1 ML VIAL IVPUSH ONE (13:30)
[2019-07-11] MEDS ORDERED: SODIUM CHLORIDE 250 ML IV ONE (18:00)
[2019-07-11] MEDS: SODIUM CHLORIDE 1,000 ML IV SCH (20:14)
[2019-07-12 06:27] LABS: BASO % 0.2 % (0-2.0); HEMATOCRIT 32.3 % (32.4-45.2); LYMPH % 7.7 % (8-40); MCH 34.9 pg (25.7-33.7); MCHC 34.1 g/dl (32.0-36.0); MEAN CELL VOLUME 102.3 fl (80-96); MEAN PLT VOLUME 7.2 fl (7.5-11.1); MONO % 5.9 % (3.8-10.2); NEUT % 86.2 % (42.8-82.8); PLATELET COUNT 115 K/MM3 (134-434); RBC 3.16 M/mm3 (3.60-5.2); RDW 19.7 % (11.6-15.6); WHITE BLOOD COUNT 5.3 K/mm3 (4.0-10.0)
[2019-07-12 06:40] LABS: INR 1.13 (0.83-1.09); PROTHROMBIN TIME (PATIENT) 13.3 SEC (9.7-13.0)
[2019-07-12 06:43] LABS: ACTIVATED PTT 44.1 SECONDS (25.2-36.5)
[2019-07-12 06:56] LABS: ALBUMIN 2.2 g/dl (3.4-5.0); BILIRUBIN,TOTAL 1.1 mg/dL (0.2-1); BLOOD UREA NITROGEN 18.2 mg/dL (7-18); CALCIUM 8.2 mg/dL (8.5-10.1); CREATININE 1.1 mg/dL (0.55-1.3); POTASSIUM 4.2 mmol/L (3.5-5.1); TOT PROT 5.8 g/dl (6.4-8.2)
[2019-07-12 16:44] LABS: BF WBC & OTHER NUCLEATED CELLS 337 /mm3
[2019-07-12 17:31] LABS: BODY FLUID MACROPHAGES 81 %; BODY FLUID MESOTHELIAL 12 %; BODY FLUID MONOCYTE 3 %
[2019-07-12] MEDS ORDERED: PNEUMOC 13-VAL CONJ-DIP CRM/PF 0.5 ML DISP.SYRIN IM ONE (19:34)
--- NOTE | 2019-07-12 19:59 | PN ---
Progress Note (short form) - Note Progress Note: Patient seen and examined
--- NOTE | 2019-07-12 19:59 | HP ---
History and Physical History and Physical: Patient seen and examined 74 y/o patient with hyperthyroidism, HTN, presented with rectal bleeding earlier this year. Noted to have a rectal mass on colonocscopy and biopsy was consistent with moderately differentiated adenoca. Also noted to have widely metastatic disease with lung nodules, liver metastases, retroperitoneal adenopathy and adrenal mets, Started XELOX in 01/21 and had very food response on imaging studies done 05/15/19 But developed ascites in June Had paracenetesis x2 . Fluid is negative for malignant cells but rapidly reaccumulating Switched to Irinotecan on 07/11 admitted with recurrent ascites AFVSS Cor: RSR, No murmurs, No gallops Lungs: Clear to P&A Abd: Soft, Normal bowel sounds, No organomegaly Ext: 2+ edema Labs/Meds reviewed A/P 74 y/o patient with hyperthyroidism, HTN, presented with rectal bleeding earlier this year. Noted to have a rectal mass on colonocscopy and biopsy was consistent with moderately differentiated adenoca. Also noted to have widely metastatic disease with lung nodules, liver metastases, retroperitoneal adenopathy and adrenal mets, Microsatellite stable Started XELOX in 01/21 and had very food response on imaging studies done 05/15/19 But developed ascites in June Had paracenetesis x2 . Fluid is negative for malignant cells but rapidly reaccumulating Switched to Irinotecan on 07/11 Plan: s/p repeat paracentesis May need peritoneal drain placeent as ascites seems to be accumulating reapidly Follow up on KRAS panel/TMB/PDL1 Continue home meds Discussed overall guarded prognosis with patient and
[2019-07-12] MEDS: CARVEDILOL 12.5 MG TABLET (FP) PO SCH (21:29)
[2019-07-12] MEDS: METHIMAZOLE 5 MG TABLET (FP) PO SCH (21:29)
[2019-07-12] MEDS: SODIUM CHLORIDE 1,000 ML IV SCH (21:30)
[2019-07-13] MEDS: SODIUM CHLORIDE 1,000 ML IV SCH ×2 (01:32→21:48)
[2019-07-13 07:15] LABS: BASO % 0.1 % (0-2.0); EOS % 0.3 % (0-4.5); HEMATOCRIT 33.5 % (32.4-45.2); HEMOGLOBIN 11.6 GM/dL (10.7-15.3); LYMPH % 13.5 % (8-40); MCH 35.1 pg (25.7-33.7); MCHC 34.7 g/dl (32.0-36.0); MEAN PLT VOLUME 7.9 fl (7.5-11.1); MONO % 6.1 % (3.8-10.2); PLATELET COUNT 145 K/MM3 (134-434); RBC 3.32 M/mm3 (3.60-5.2); RDW 19.8 % (11.6-15.6); WHITE BLOOD COUNT 7.6 K/mm3 (4.0-10.0)
[2019-07-13 07:49] LABS: BLOOD UREA NITROGEN 19.5 mg/dL (7-18); CALCIUM 7.9 mg/dL (8.5-10.1); TOT PROT 5.4 g/dl (6.4-8.2)
--- NOTE | 2019-07-13 09:55 | PN ---
Progress Note (short form) - Note Progress Note: Patient seen and examined Somewhat anorechtic , No nausea or emesis S/P paracentesis Still with abdominal discomfort and bloating Anorechtic with decrease in intake Last Vital Signs Temp Pulse Resp BP Pulse Ox 97.8 F 69 16 84/52 L 100 07/13/19 09:17 07/13/19 09:17 07/13/19 09:17 07/13/19 09:17 07/12/19 21:00 HEENT: KOFFI, EOM Intact Oropharynx: No thrush, No mucositis Cor: RSR, No murmurs, No gallops Lungs: diminished breath sounds bilaterally Abd: distended , ascites Ext:2-3+ LE edema edema Skin: No rashes, Integument intact CBC, BMP 07/13/19 05:45 07/13/19 05:45 Current Medications Generic Name Dose Route Start Last Admin Trade Name Freq PRN Reason Stop Dose Admin Carvedilol 12.5 mg 07/12/19 22:00 07/12/19 21:29 Coreg - PO 12.5 mg BID CHITRA Administration Fluconazole 100 mg 07/13/19 10:00 Diflucan - PO DAILY CHITRA IV Flush 10 ml 07/11/19 17:44 Bryce-Cath Flush IVPUSH PRN PRN protocol Sodium Chloride 1,000 mls @ 42 mls/hr 07/11/19 19:15 07/13/19 01:32 Normal Saline - IV 42 mls/hr Q24H CHITRA Administration Methimazole 5 mg 07/12/19 22:00 07/12/19 21:29 Tapazole - PO 5 mg BID CH[facility]RA Administration Impression: Metastatic colon ca S/P progression of XELOX Begun on irinotecan -cycle Ascites- s/p paracentesis Plan : Will need additional paracentesis prior to discharge - would plan for 07/16 Await KRAS studies to decide about addition therapy
[2019-07-13] MEDS ORDERED: OXYBUTYNIN CHLORIDE 5 MG TABLET PO SCH (10:00)
[2019-07-13] MEDS ORDERED: ENOXAPARIN NA (PORCINE) 30 MG/0.3 ML DISP.SYRIN SQ SCH (10:15)
[2019-07-13] MEDS ORDERED: PT OWN MED DRAWER 7, Y5N ONE ×2 (11:45→20:58)
[2019-07-13] MEDS: CARVEDILOL 12.5 MG TABLET (FP) PO SCH ×2 (11:50→21:46)
[2019-07-13] MEDS: METHIMAZOLE 5 MG TABLET (FP) PO SCH ×2 (11:51→21:46)
[2019-07-13] MEDS: FLUCONAZOLE 100 MG TABLET (UD) PO SCH (11:51)
[2019-07-13] MEDS: ENOXAPARIN NA (PORCINE) 40 MG/0.4 ML DISP.SYRIN SQ SCH (11:53)
[2019-07-14] MEDS ORDERED: PT OWN MED DRAWER 7, Y5N ONE ×2 (08:43→16:09)
[2019-07-14] MEDS: CARVEDILOL 12.5 MG TABLET (FP) PO SCH ×2 (09:05→21:27)
[2019-07-14] MEDS: ENOXAPARIN NA (PORCINE) 40 MG/0.4 ML DISP.SYRIN SQ SCH (09:05)
[2019-07-14] MEDS: FLUCONAZOLE 100 MG TABLET (UD) PO SCH (09:05)
[2019-07-14] MEDS: METHIMAZOLE 5 MG TABLET (FP) PO SCH ×2 (09:06→21:27)
[2019-07-14 17:51] LABS: EPI CELLS 2.9 /HPF (0-5/HPF); HYALINE CASTS 60 /lpf (0-8); PH,URINE 5.5 (5.0-8.0); URINE APPEARANCE CLOUDY; URINE BACTERIA 8978.2 /hpf (NEGATIVE); URINE BILIRUBIN NEGATIVE (NEGATIVE); URINE COLOR DK YELLOW; URINE GLUCOSE (UA) NEGATIVE (NEGATIVE); URINE KETONE 1+ (NEGATIVE); URINE LEUK ESTERASE 2+ (NEGATIVE); URINE NITRITE POSITIVE (NEGATIVE); URINE PROTEIN 1+ (NEGATIVE); URINE WBC 58 /hpf (0-5)
[2019-07-14 19:23] LABS: URINE RBC 6.3 /hpf (0-4)
--- NOTE | 2019-07-14 19:32 | PN ---
Progress Note (short form) - Note Progress Note: Patient seen and examined No nausea or emesis Still with abdominal discomfort and bloating + Leg swelling bilateral Last Vital Signs Temp Pulse Resp BP Pulse Ox 97.8 F 68 19 104/54 L 98 07/14/19 18:02 07/14/19 18:02 07/14/19 18:02 07/14/19 18:02 07/14/19 09:00 HEENT: KOFFI, EOM Intact Oropharynx: No thrush, No mucositis Cor: RSR, No murmurs, No gallops Lungs: diminished breath sounds bilaterally Abd: distended , ascites Ext:2-3+ LE edema edema Skin: No rashes, Integument intact 07/13/19 05:45 07/13/19 05:45 Current Medications Generic Name Dose Route Start Last Admin Trade Name Freq PRN Reason Stop Dose Admin Carvedilol 12.5 mg 07/12/19 22:00 07/14/19 09:05 Coreg - PO 12.5 mg BID CHITRA Administration Enoxaparin Sodium 40 mg 07/13/19 10:19 07/14/19 09:05 Lovenox - SQ 40 mg DAILY CHITRA Administration Fluconazole 100 mg 07/13/19 10:00 07/14/19 09:05 Diflucan - PO 100 mg DAILY CHITRA Administration IV Flush 10 ml 07/11/19 17:44 Bryce-Cath Flush IVPUSH PRN PRN protocol Methimazole 5 mg 07/12/19 22:00 07/14/19 09:06 Tapazole - PO 5 mg BID CHITRA Administration Impression: Metastatic colon ca S/P progression of XELOX Begun on irinotecan -cycle Ascites- s/p paracentesis Plan : Will need additional paracentesis prior to discharge - would plan for 07/16 Will hold Lovenox to prepare for paracentesis (only indication is DVT prophylaxis) Await KRAS studies to decide about addition therapy
[2019-07-15 07:14] LABS: BASO % 0.1 % (0-2.0); EOS % 0.8 % (0-4.5); HEMATOCRIT 33.9 % (32.4-45.2); HEMOGLOBIN 11.5 GM/dL (10.7-15.3); LYMPH % 24.9 % (8-40); MCH 34.9 pg (25.7-33.7); MCHC 33.8 g/dl (32.0-36.0); MEAN CELL VOLUME 103.1 fl (80-96); MEAN PLT VOLUME 7.8 fl (7.5-11.1); MONO % 2.5 % (3.8-10.2); NEUT % 71.7 % (42.8-82.8); PLATELET COUNT 114 K/MM3 (134-434); RBC 3.29 M/mm3 (3.60-5.2); RDW 19.7 % (11.6-15.6); WHITE BLOOD COUNT 4.4 K/mm3 (4.0-10.0)
[2019-07-15 07:38] LABS: INR 1.03 (0.83-1.09); PROTHROMBIN TIME (PATIENT) 12.1 SEC (9.7-13.0)
[2019-07-15 07:41] LABS: ACTIVATED PTT 75.8 SECONDS (25.2-36.5)
[2019-07-15 07:46] LABS: ALBUMIN 2.3 g/dl (3.4-5.0); BILIRUBIN,TOTAL 1.3 mg/dL (0.2-1); BLOOD UREA NITROGEN 20.2 mg/dL (7-18); CALCIUM 8.3 mg/dL (8.5-10.1); TOT PROT 5.7 g/dl (6.4-8.2)
[2019-07-15] MEDS ORDERED: PT OWN MED DRAWER 7, Y5N ONE (08:29)
[2019-07-15] MEDS: CARVEDILOL 12.5 MG TABLET (FP) PO SCH ×2 (09:02→22:29)
[2019-07-15] MEDS: FLUCONAZOLE 100 MG TABLET (UD) PO SCH (09:03)
[2019-07-15] MEDS: METHIMAZOLE 5 MG TABLET (FP) PO SCH ×2 (09:03→22:30)
[2019-07-15] MEDS ORDERED: predniSONE 10 MG TABLET (UD) PO SCH (15:15)
--- NOTE | 2019-07-15 15:51 | PN ---
Progress Note (short form) - Note Progress Note: Patient seen and examined No nausea or emesis Still with abdominal discomfort and bloating + Leg swelling bilateral Last Vital Signs Temp Pulse Resp BP Pulse Ox 97.8 F 76 20 105/60 97 07/15/19 14:32 07/15/19 14:32 07/15/19 14:32 07/15/19 14:32 07/15/19 09:00 HEENT: KOFFI, EOM Intact Oropharynx: No thrush, No mucositis Cor: RSR, No murmurs, No gallops Lungs: diminished breath sounds bilaterally Abd: distended , ascites Ext:2-3+ LE edema edema Skin: No rashes, Integument intact 07/15/19 06:00 07/15/19 06:00 Current Medications Carvedilol (Coreg -) 12.5 mg PO BID [facility] Last Admin: 07/15/19 09:02 Dose: 12.5 mg Fluconazole (Diflucan -) 100 mg PO DAILY [facility] Last Admin: 07/15/19 09:03 Dose: 100 mg IV Flush (Bryce-Cath Flush) 10 ml IVPUSH PRN PRN PRN Reason: protocol Methimazole (Tapazole -) 5 mg PO BID [facility] Last Admin: 07/15/19 09:03 Dose: 5 mg Impression: Metastatic colon ca S/P progression of XELOX Begun on irinotecan -cycle Ascites- s/p paracentesis Plan : Will need additional paracentesis prior to discharge - would plan for 07/16 Will hold Lovenox to prepare for paracentesis (only indication is DVT prophylaxis) Await KRAS studies to decide about addition therapy
[2019-07-16] MEDS ORDERED: PT OWN MED DRAWER 7, Y5N ONE ×2 (09:43→19:44)
[2019-07-16] MEDS: CARVEDILOL 12.5 MG TABLET (FP) PO SCH ×3 (09:48→21:00)
[2019-07-16] MEDS: FLUCONAZOLE 100 MG TABLET (UD) PO SCH (09:48)
[2019-07-16] MEDS: METHIMAZOLE 5 MG TABLET (FP) PO SCH ×2 (09:48→21:00)
[2019-07-16 11:52] LABS: BASO % 0.1 % (0-2.0); EOS % 0.3 % (0-4.5); HEMATOCRIT 32.8 % (32.4-45.2); HEMOGLOBIN 10.9 GM/dL (10.7-15.3); LYMPH % 16.8 % (8-40); MCH 34.7 pg (25.7-33.7); MCHC 33.3 g/dl (32.0-36.0); MEAN CELL VOLUME 103.9 fl (80-96); MEAN PLT VOLUME 7.6 fl (7.5-11.1); MONO % 2.9 % (3.8-10.2); NEUT % 79.9 % (42.8-82.8); PLATELET COUNT 78 K/MM3 (134-434); RBC 3.16 M/mm3 (3.60-5.2); RDW 19.4 % (11.6-15.6); WHITE BLOOD COUNT 3.2 K/mm3 (4.0-10.0)
[2019-07-16 12:27] LABS: ALBUMIN 2.1 g/dl (3.4-5.0); BILIRUBIN,TOTAL 1.3 mg/dL (0.2-1); BLOOD UREA NITROGEN 19.3 mg/dL (7-18); CALCIUM 8.4 mg/dL (8.5-10.1); POTASSIUM 4.4 mmol/L (3.5-5.1); TOT PROT 5.5 g/dl (6.4-8.2)
[2019-07-16 13:41] LABS: PROTHROMBIN TIME (PATIENT) 11.8 SEC (9.7-13.0)
--- NOTE | 2019-07-16 19:32 | PN ---
Progress Note (short form) - Note Progress Note: Patient seen and examined s/p paracentesis today Feels more comfortable Last Vital Signs Temp Pulse Resp BP Pulse Ox 98.3 F 83 20 120/64 98 07/16/19 17:54 07/16/19 17:54 07/16/19 17:54 07/16/19 17:54 07/15/19 21:00 Cor: RSR, No murmurs, No gallops Lungs: Clear to P&A Abd: ascites+ Ext:2+ edema Labs/MEds reviewed A/P 74 y/o patient with hyperthyroidism, HTN, presented with rectal bleeding earlier this year. Noted to have a rectal mass on colonocscopy and biopsy was consistent with moderately differentiated adenoca. Also noted to have widely metastatic disease with lung nodules, liver metastases, retroperitoneal adenopathy and adrenal mets, Microsatellite stable Started XELOX in 01/21 and had very good response on imaging studies done 05/15/19 But developed ascites in June Had paracenetesis x2 . Fluid is negative for malignant cells but rapidly reaccumulating Switched to Irinotecan on 07/11 Plan: s/p repeat paracentesis May need peritoneal drain placement based on response to 2nd line chemotherapy Follow up on KRAS panel/TMB/PDL1 Continue home meds Neupogen as necessary check stool for c.diff
[2019-07-16] MEDS ORDERED: CEFTRIAXONE 2 GM in DEXTROSE 5%-WATER 100 ML IVPB SCH (19:45)
[2019-07-16] MEDS ORDERED: DEXTROSE 5%-WATER 100 ML IVPB ONE (20:03)
[2019-07-17 00:16] LABS: EPI CELLS 1.7 /HPF (0-5/HPF); HYALINE CASTS 7 /lpf (0-8); URINE APPEARANCE CLOUDY; URINE BACTERIA 1655.9 /hpf (NEGATIVE); URINE BILIRUBIN 1+ (NEGATIVE); URINE COLOR DK YELLOW; URINE GLUCOSE (UA) NEGATIVE (NEGATIVE); URINE KETONE 1+ (NEGATIVE); URINE LEUK ESTERASE 2+ (NEGATIVE); URINE NITRITE POSITIVE (NEGATIVE); URINE PROTEIN 1+ (NEGATIVE); URINE RBC 7 /hpf (0-4); URINE WBC 62 /hpf (0-5)
[2019-07-17 07:30] LABS: EOS % 0.3 % (0-4.5); HEMOGLOBIN 10.8 GM/dL (10.7-15.3); LYMPH % 48.7 % (8-40); MCH 34.9 pg (25.7-33.7); MCHC 33.9 g/dl (32.0-36.0); MEAN CELL VOLUME 102.9 fl (80-96); MEAN PLT VOLUME 8.2 fl (7.5-11.1); MONO % 11.8 % (3.8-10.2); NEUT % 39.2 % (42.8-82.8); PLATELET COUNT 68 K/MM3 (134-434); RBC 3.11 M/mm3 (3.60-5.2); RDW 19.7 % (11.6-15.6)
[2019-07-17 07:34] LABS: WHITE BLOOD COUNT 0.8 K/mm3 (4.0-10.0)
[2019-07-17 08:05] LABS: ALBUMIN 1.9 g/dl (3.4-5.0); BLOOD UREA NITROGEN 17.6 mg/dL (7-18); CALCIUM 8.1 mg/dL (8.5-10.1); CREATININE 0.8 mg/dL (0.55-1.3); POTASSIUM 4.3 mmol/L (3.5-5.1); TOT PROT 5.1 g/dl (6.4-8.2)
[2019-07-17] MEDS ORDERED: TBO-FILGRASTIM 480 MCG/0.8 ML DISP.SYRIN SQ ONE (08:30)
[2019-07-17] MEDS: traMADol HCL 50 MG TABLET PO PRN (08:52)
[2019-07-17] MEDS ORDERED: PIPERACILLIN/TAZOBACTAM 3.375 GM VIAL IVPB ONE ×2 (09:59→17:28)
[2019-07-17] MEDS ORDERED: PT OWN MED DRAWER 7, Y5N ONE (09:59)
[2019-07-17] MEDS ORDERED: DEXTROSE 5%-WATER - 50 ML IVPB ONE ×2 (10:00→17:29)
[2019-07-17] MEDS: PIPERACILLIN/TAZOB 3.375 GM 3.375 GM in DEXTROSE 5%-WATER - 50 ML IVPB SCH ×2 (10:34→18:18)
[2019-07-17] MEDS: METHIMAZOLE 5 MG TABLET (FP) PO SCH ×2 (10:35→21:52)
[2019-07-17] MEDS: CARVEDILOL 12.5 MG TABLET (FP) PO SCH ×2 (10:35→21:53)
[2019-07-17] MEDS: FLUCONAZOLE 100 MG TABLET (UD) PO SCH (10:35)
[2019-07-17 11:50] LABS: ANISOCYTOSIS 1+; MACROCYTOSIS 2+; PLATELET ESTIMATE DECREASED
--- NOTE | 2019-07-17 18:46 | PN ---
Progress Note (short form) - Note Progress Note: Patient seen and examined Offers no specific complaints Last Vital Signs Temp Pulse Resp BP Pulse Ox 97.8 F 78 18 98/44 L 98 07/17/19 13:20 07/17/19 13:20 07/17/19 13:20 07/17/19 13:20 07/17/19 08:22 HEENT: KOFFI, EOM Intact Oropharynx: No thrush, No mucositis Cor: RSR, No murmurs, No gallops Lungs: diminished breath sounds bilaterally Abd: tense ascites Ext:edema LE Skin: No rashes, Integument intact CBC, BMP 07/17/19 06:05 07/17/19 06:05 Current Medications Generic Name Dose Route Start Last Admin Trade Name Freq PRN Reason Stop Dose Admin Carvedilol 12.5 mg 07/12/19 22:00 07/17/19 10:35 Coreg - PO 12.5 mg BID CHITRA Administration Fluconazole 100 mg 07/13/19 10:00 07/17/19 10:35 Diflucan - PO 100 mg DAILY [facility]RA Administration IV Flush 10 ml 07/11/19 17:44 Bryce-Cath Flush IVPUSH PRN PRN protocol Piperacillin Sod/Tazobactam 50 mls @ 100 mls/hr 07/17/19 10:00 Sod 3.375 gm/ Dextrose IVPB Q8H-IV [facility]ITRA Protocol Piperacillin Sod/Tazobactam 50 mls @ 100 mls/hr 07/17/19 10:00 07/17/19 18:18 Sod 3.375 gm/ Dextrose IVPB 07/18/19 02:29 100 mls/hr Q8H-IV CHITRA Administration Protocol Methimazole 5 mg 07/12/19 22:00 07/17/19 10:35 Tapazole - PO 5 mg BID [facility] Administration Tramadol HCl 50 mg 07/17/19 08:44 07/17/19 08:52 Ultram - PO 50 mg Q8H PRN Administration PAIN LEVEL 4 - 6 Impression: Colon ca Ascites - s/p paracentesis Fevers Neutropenia E.Coli- UTI Plan Granix. Monitor CBC
[2019-07-17] MEDS ORDERED: TBO-FILGRASTIM 300 MCG/0.5 ML DISP.SYRINGE SQ SCH (19:00)
[2019-07-18] MEDS ORDERED: DEXTROSE 5%-WATER - 50 ML IVPB ONE ×3 (00:32→17:12)
[2019-07-18] MEDS ORDERED: PIPERACILLIN/TAZOBACTAM 3.375 GM VIAL IVPB ONE ×3 (00:32→17:12)
[2019-07-18] MEDS: PIPERACILLIN/TAZOB 3.375 GM 3.375 GM in DEXTROSE 5%-WATER - 50 ML IVPB SCH ×3 (01:01→18:00)
[2019-07-18 07:37] LABS: BASO % 0.3 % (0-2.0); HEMATOCRIT 30.2 % (32.4-45.2); HEMOGLOBIN 10.5 GM/dL (10.7-15.3); LYMPH % 63.9 % (8-40); MCH 35.7 pg (25.7-33.7); MCHC 34.6 g/dl (32.0-36.0); MEAN CELL VOLUME 103.2 fl (80-96); MONO % 15.9 % (3.8-10.2); NEUT % 18.9 % (42.8-82.8); PLATELET COUNT 57 K/MM3 (134-434); RBC 2.93 M/mm3 (3.60-5.2); RDW 19.5 % (11.6-15.6)
[2019-07-18 08:13] LABS: ALBUMIN 1.9 g/dl (3.4-5.0); BLOOD UREA NITROGEN 18.2 mg/dL (7-18); CALCIUM 8.1 mg/dL (8.5-10.1); CREATININE 0.8 mg/dL (0.55-1.3); MAGNESIUM 1.6 mg/dL (1.8-2.4); POTASSIUM 4.1 mmol/L (3.5-5.1); TOT PROT 5.1 g/dl (6.4-8.2)
[2019-07-18 08:19] LABS: WHITE BLOOD COUNT 0.7 K/mm3 (4.0-10.0)
[2019-07-18] MEDS ORDERED: PT OWN MED DRAWER 7, Y5N ONE (08:50)
[2019-07-18] MEDS: CARVEDILOL 12.5 MG TABLET (FP) PO SCH ×2 (09:39→21:15)
[2019-07-18] MEDS: FLUCONAZOLE 100 MG TABLET (UD) PO SCH (09:39)
[2019-07-18] MEDS: METHIMAZOLE 5 MG TABLET (FP) PO SCH ×2 (09:40→21:15)
[2019-07-18 10:11] LABS: ANISOCYTOSIS 1+; HELMET CELLS 1+; MACROCYTOSIS 0; PLATELET ESTIMATE DECREASED
[2019-07-18] MEDS ORDERED: TBO-FILGRASTIM 300 MCG/0.5 ML DISP.SYRINGE SQ ONE (10:15)
--- NOTE | 2019-07-18 13:14 | PATH ---
Cytology Non-Gynecological Report Patient Name: JEMIMA LÓPEZ Med. Rec. #: [id number] /Age/Gender: 1945 (Age: 74) / F Account: [id number] Location: [facility] MED/SURG Taken: 07/12/2019 Received: 07/13/2019 Reported: 07/18/2019 Physicians: Mickie Arango M.D. Specimen(s) Received A: ABDOMINAL FLUID B: ABDOMINAL FLUID Clinical History Rectal mass Final Diagnosis A-B. ABDOMINAL FLUID, PARACENTESIS: SATISFACTORY FOR EVALUATION. NO MALIGNANT CELLS IDENTIFIED. REACTIVE MESOTHELIAL CELLS PRESENT. Comment: Immunohistochemical stains performed and interpreted at [facility] show CK20 and CHELE (high background staining) are negative. History of proximal rectum adenocarcinoma and prior materials are noted. Positive and negative controls (internal if applicable) show appropriate results. Electronically Signed Xuan Seymour M.D. Gross Description A. Approximately 50 cc of yellow fluid received fixed in 50% alcohol. One cytofunnel prepared and Pap stained. One cellblock prepared. B. Approximately 2000 cc of yellow fluid received fresh. One cytofunnel prepared and Pap stained. One cellblock prepared.
--- NOTE | 2019-07-18 13:40 | PN ---
Progress Note (short form) - Note Progress Note: ID consult dictated 74 you with metastatic rectal adenocarcinoma on irinotecan - admitted 07/12 for paracentesis for recurrent ascites she is now neutropenic s/p chemo with ecoli UTI was started yesterday on zosyn for the UTI has 3 small BMS daily no diarrhea no abdominal pain- s/p 2500 cc paracentesis on 07/16 neutropenia ecoli uti recurrent ascites metastatic adenoca of the rectum on chemo continue zosyn isolation for neutropenia Problem List - Problems (1) Neutropenia Code(s): D70.9 - NEUTROPENIA, UNSPECIFIED (2) E-coli UTI Code(s): N39.0 - URINARY TRACT INFECTION, SITE NOT SPECIFIED; B96.20 - UNSP ESCHERICHIA COLI THE CAUSE OF DISEASES CLASSD ELSWHR (3) Rectal cancer Code(s): C20 - MALIGNANT NEOPLASM OF RECTUM
--- NOTE | 2019-07-18 15:33 | PN ---
Progress Note (short form) - Note Progress Note: Patient seen and examined Complains of abdominal pains intermittently Last Vital Signs Temp Pulse Resp BP Pulse Ox 98.0 F 78 18 97/52 L 98 07/18/19 14:55 07/18/19 14:55 07/18/19 14:55 07/18/19 14:55 07/18/19 09:00 HEENT: KOFFI, EOM Intact Oropharynx: No thrush, No mucositis CBC, BMP 07/18/19 06:30 07/18/19 06:30 Cor: RSR, No murmurs, No gallops Lungs: diminished breath sounds bilterally Abd tense ascites Ext:No significant edema Skin: No rashes, Integument intact Current Medications Generic Name Dose Route Start Last Admin Trade Name Freq PRN Reason Stop Dose Admin Carvedilol 12.5 mg 07/12/19 22:00 07/18/19 09:39 Coreg - PO 12.5 mg BID CHITRA Administration Fluconazole 100 mg 07/13/19 10:00 07/18/19 09:39 Diflucan - PO 100 mg DAILY CHITRA Administration IV Flush 10 ml 07/11/19 17:44 Bryce-Cath Flush IVPUSH PRN PRN protocol Piperacillin Sod/Tazobactam 50 mls @ 100 mls/hr 07/18/19 13:45 07/18/19 14:13 Sod 3.375 gm/ Dextrose IVPB 100 mls/hr Q8H-IV CHITRA Administration Protocol Methimazole 5 mg 07/12/19 22:00 07/18/19 09:40 Tapazole - PO 5 mg BID [facility]RA Administration Tramadol HCl 50 mg 07/17/19 08:44 07/17/19 08:52 Ultram - PO 50 mg Q8H PRN Administration PAIN LEVEL 4 - 6 Impression: Colon ca S/P chemotherapy Neutropenic fevers E.coli UTI- seen by ID Ascites - s/p paracentesis Plan . Continue with antibiotics per ID-- monitor CBC Granix Paracentesis prn Add tramadol ?? catheter for ascitic drainage in future pending response to treatment.
[2019-07-18] MEDS ORDERED: MAGNESIUM SULF 50% (8.12 MEQ/2 ML-1 GM VIAL) IVPB ONE (15:34)
--- NOTE | 2019-07-18 20:39 | CONS ---
DATE OF CONSULTATION: DATE OF DICTATION: 07/18/2019 INFECTIOUS DISEASE CONSULTATION REQUESTING PHYSICIAN: Missy Segura M.D. CONSULTING PHYSICIAN: Faiza Hernandez M.D. HISTORY OF PRESENT ILLNESS: This is a 74-year-old woman with metastatic rectal adenocarcinoma. She was admitted post chemotherapy with irinotecan on July 11. She was admitted on the for paracentesis for recurrent ascites. I am asked to see her because she is now neutropenic. She is also found to have an E. coli UTI. Her ascites has recurred and on the she underwent a 2nd paracentesis with 2500 mL of fluid removal. She is resting comfortably. She has 3 small bowel movements a day, no diarrhea. She has had no fever, nausea, or vomiting. She has a poor appetite. She denies abdominal pain. PAST MEDICAL HISTORY: Notable for history of hypothyroidism, hypertension, rectal cancer consistent with adenocarcinoma, and she was noted to have widely metastatic disease with lung nodules, liver metastases, retroperitoneal adenopathy and adrenal mass. She has failed XELOX, and is now on irinotecan. ALLERGIES: No known drug allergies. MEDICATION: Her medications as an outpatient include metformin, Pepcid, Coreg, Tapazole, hydrochlorothiazide, and Ditropan. SOCIAL HISTORY: She is , she lives with her . There is no history of any cigarette or substance use. REVIEW OF SYSTEMS: As per HPI. PHYSICAL EXAMINATION: General: She is a thin woman in no acute distress. Vital Signs: Temperature 98.6, pulse 78, blood pressure 104/59, respiratory rate 18, saturating 98% on room air. HEENT: Normocephalic. Eyes are anicteric. Neck: Supple. Lungs: Clear to auscultation. Heart: Regular rate and rhythm. Abdomen: Soft. She has ascites, it is nontender. Extremities: Without edema. LABORATORY: White count is 700 with an ANC of 100. Her hemoglobin is 10.5, hematocrit 30.2, her platelets are 57,000. BUN and creatinine are 18 and 0.8 with normal LFTs. Urinalysis has 2+ leukocytes with 62 white cells. Her C. difficile is negative, and urine culture is notable for E. coli with negative blood cultures. IMPRESSION: In summary, this is a 74-year-old woman with metastatic rectal adenocarcinoma on irinotecan admitted November 7 for paracentesis for recurrent ascites. She is now neutropenic status post chemotherapy with Escherichia coli urinary tract infection. I would suggest we continue the Zosyn. She needs to be in neutropenic isolation. She is status post thoracentesis for recurrent ascites. Further plans per oncology. FAIZA HERNANDEZ M.D. [id number]
[2019-07-19] MEDS ORDERED: DEXTROSE 5%-WATER - 50 ML IVPB ONE ×3 (01:40→17:39)
[2019-07-19] MEDS ORDERED: PIPERACILLIN/TAZOBACTAM 3.375 GM VIAL IVPB ONE ×3 (01:40→17:39)
[2019-07-19] MEDS: PIPERACILLIN/TAZOB 3.375 GM 3.375 GM in DEXTROSE 5%-WATER - 50 ML IVPB SCH ×3 (01:43→17:45)
[2019-07-19] MEDS: traMADol HCL 50 MG TABLET PO PRN (01:59)
[2019-07-19 07:55] LABS: ALBUMIN 1.8 g/dl (3.4-5.0); BLOOD UREA NITROGEN 17.5 mg/dL (7-18); CREATININE 0.9 mg/dL (0.55-1.3); POTASSIUM 3.8 mmol/L (3.5-5.1); TOT PROT 4.9 g/dl (6.4-8.2)
[2019-07-19 08:09] LABS: BASO % 0.1 % (0-2.0); EOS % 1.4 % (0-4.5); HEMATOCRIT 30.4 % (32.4-45.2); HEMOGLOBIN 10.3 GM/dL (10.7-15.3); MCH 34.9 pg (25.7-33.7); MCHC 33.8 g/dl (32.0-36.0); MEAN CELL VOLUME 103.5 fl (80-96); MEAN PLT VOLUME 7.6 fl (7.5-11.1); MONO % 11.9 % (3.8-10.2); NEUT % 39.6 % (42.8-82.8); PLATELET COUNT 46 K/MM3 (134-434); RBC 2.94 M/mm3 (3.60-5.2); RDW 19.6 % (11.6-15.6)
[2019-07-19 10:19] LABS: ANISOCYTOSIS 1+; MACROCYTOSIS 1+; PLATELET ESTIMATE DECREASED
[2019-07-19] MEDS ORDERED: PT OWN MED DRAWER 7, Y5N ONE (10:46)
[2019-07-19] MEDS: METHIMAZOLE 5 MG TABLET (FP) PO SCH ×2 (10:48→22:25)
[2019-07-19] MEDS: FLUCONAZOLE 100 MG TABLET (UD) PO SCH (10:48)
[2019-07-19] MEDS: CARVEDILOL 12.5 MG TABLET (FP) PO SCH ×2 (10:48→22:24)
[2019-07-19] MEDS: ONDANSETRON 4 MG/2 ML VIAL IVPB PRN (14:45)
[2019-07-20] MEDS ORDERED: DEXTROSE 5%-WATER - 50 ML IVPB ONE ×3 (00:03→16:53)
[2019-07-20] MEDS ORDERED: PIPERACILLIN/TAZOBACTAM 3.375 GM VIAL IVPB ONE ×3 (00:03→16:53)
[2019-07-20] MEDS: PIPERACILLIN/TAZOB 3.375 GM 3.375 GM in DEXTROSE 5%-WATER - 50 ML IVPB SCH ×3 (01:01→17:02)
--- NOTE | 2019-07-20 05:29 | PN ---
Progress Note (short form) - Note Progress Note: Patient seen and examined s/p paracentesis today Feels more comfortable AFVSS Cor: RSR, No murmurs, No gallops Lungs: Clear to P&A Abd: ascites+ Ext:2+ edema Labs/MEds reviewed A/P 74 y/o patient with hyperthyroidism, HTN, presented with rectal bleeding earlier this year. Noted to have a rectal mass on colonocscopy and biopsy was consistent with moderately differentiated adenoca. Also noted to have widely metastatic disease with lung nodules, liver metastases, retroperitoneal adenopathy and adrenal mets, Microsatellite stable Started XELOX in 01/21 and had very good response on imaging studies done 05/15/19 But developed ascites in June Had paracenetesis x2 . Fluid is negative for malignant cells but rapidly reaccumulating Switched to Irinotecan on 07/11 Plan: s/p repeat paracentesis May need peritoneal drain placement based on response to 2nd line chemotherapy Follow up on KRAS panel/TMB/PDL1 Continue home meds Neupogen On Zosyn empirically discussed with patient her and son in great detail
[2019-07-20 07:33] LABS: BASO % 0.6 % (0-2.0); EOS % 1.2 % (0-4.5); HEMATOCRIT 28.6 % (32.4-45.2); HEMOGLOBIN 9.6 GM/dL (10.7-15.3); LYMPH % 56.2 % (8-40); MCH 34.6 pg (25.7-33.7); MCHC 33.5 g/dl (32.0-36.0); MEAN CELL VOLUME 103.3 fl (80-96); MEAN PLT VOLUME 8.8 fl (7.5-11.1); MONO % 17.2 % (3.8-10.2); NEUT % 24.8 % (42.8-82.8); PLATELET COUNT 53 K/MM3 (134-434); RBC 2.76 M/mm3 (3.60-5.2)
[2019-07-20 07:37] LABS: WHITE BLOOD COUNT 0.7 K/mm3 (4.0-10.0)
[2019-07-20 08:05] LABS: ALBUMIN 1.7 g/dl (3.4-5.0); BILIRUBIN,TOTAL 1.1 mg/dL (0.2-1); BLOOD UREA NITROGEN 19.2 mg/dL (7-18); CALCIUM 7.9 mg/dL (8.5-10.1); CREATININE 0.8 mg/dL (0.55-1.3); POTASSIUM 3.9 mmol/L (3.5-5.1); TOT PROT 4.8 g/dl (6.4-8.2)
[2019-07-20] MEDS: CARVEDILOL 12.5 MG TABLET (FP) PO SCH ×3 (10:20→22:52)
[2019-07-20] MEDS: METHIMAZOLE 5 MG TABLET (FP) PO SCH ×2 (10:20→22:45)
[2019-07-20] MEDS: ONDANSETRON 4 MG/2 ML VIAL IVPB PRN (10:32)
[2019-07-20 10:38] LABS: ANISOCYTOSIS 2+; MACROCYTOSIS 2+; PLATELET ESTIMATE DECREASED
[2019-07-20] MEDS ORDERED: SODIUM CHLORIDE 1,000 ML IV SCH (14:45)
--- NOTE | 2019-07-20 16:48 | PN ---
Progress Note (short form) - Note Progress Note: afebrile no complaints Vital Signs Period Temp Pulse Resp BP Sys/Dennison Pulse Ox Last 24 Hr 97.5 F-98.6 F 66-82 18-20 99-128/50-77 97-97 no thrush cor-rrr lungs decreased bs at bases abd +ascites, nontender ext no edema CBC, BMP 07/20/19 06:00 07/20/19 06:00 Microbiology 07/14/19 13:45 Blood - Peripheral Venous Blood Culture - Final NO GROWTH AFTER 5 DAYS INCUBATION 07/14/19 13:35 Blood - Peripheral Venous Blood Culture - Final NO GROWTH AFTER 5 DAYS INCUBATION 07/17/19 04:20 Stool Clostridioides difficile Antigen - Final 07/17/19 04:20 Stool Clostridioides difficile Toxin Assay - Final 07/12/19 14:45 Abdomen AFB Smear Concentration - Final 07/12/19 14:45 Abdomen Mycobacterial Culture - Preliminary 07/14/19 17:35 Urine - Urine Clean Catch Urine Culture - Final Escherichia Coli 07/12/19 14:45 Abdomen Gram Stain - Final 07/12/19 14:45 Abdomen Body Fluid Culture - Final NO GROWTH OF AEROBIC ORGANISMS AFTER 48 HOURS INCUBATION 07/12/19 14:45 Abdomen Anaerobic Culture - Final NO ANAEROBES WERE ISOLATED 07/12/19 14:45 Abdomen NEEL Preparation - Preliminary 07/12/19 14:45 Abdomen Fungal Culture - Preliminary a/p neutropenia-s/p chemo ecoli uti recurrent ascites metastatic adenoca of the rectum on chemo continue zosyn isolation for neutropenia d/w oncology Problem List - Problems (1) Neutropenia Code(s): D70.9 - NEUTROPENIA, UNSPECIFIED (2) E-coli UTI Code(s): N39.0 - URINARY TRACT INFECTION, SITE NOT SPECIFIED; B96.20 - UNSP ESCHERICHIA COLI THE CAUSE OF DISEASES CLASSD ELSWHR (3) Rectal cancer Code(s): C20 - MALIGNANT NEOPLASM OF RECTUM
[2019-07-20] MEDS: PANTOPRAZOLE SODIUM 40 MG VIAL IVPB SCH (17:03)
[2019-07-20] MEDS: AMINO ACIDS 4.25%/D5W 1,000 ML IV SCH (19:02)
--- NOTE | 2019-07-20 19:19 | PN ---
Progress Note (short form) - Note Progress Note: Patient seen and examined Had a small episode of vomiting this morning. Had some diarrhea AFVSS Cor: RSR, No murmurs, No gallops Lungs: Clear to P&A Abd: ascites+ Ext:2+ edema Labs/MEds reviewed A/P 74 y/o patient with hyperthyroidism, HTN, presented with rectal bleeding earlier this year. Noted to have a rectal mass on colonocscopy and biopsy was consistent with moderately differentiated adenoca. Also noted to have widely metastatic disease with lung nodules, liver metastases, retroperitoneal adenopathy and adrenal mets, Microsatellite stable Started XELOX in 01/21 and had very good response on imaging studies done 05/15/19 But developed ascites in June Had paracenetesis x2 . Fluid is negative for malignant cells but rapidly reaccumulating Switched to Irinotecan on 07/11 Plan: s/p repeat paracentesis May need peritoneal drain placement based on response to 2nd line chemotherapy Follow up on KRAS panel/TMB/PDL1. MSI stable Neupogen 0n 07/17, 07/18 On Zosyn empirically Vomiting, + BMs -- suspect partial ostrction from rectal mass. Would manage conservatively. NP0. clinimix. will check CT a/p Given ongoing neutropenia ---would manage conservatively. Will request gi consult will discuss with gi team
[2019-07-21] MEDS: ONDANSETRON 4 MG/2 ML VIAL IVPB PRN (00:47)
[2019-07-21] MEDS ORDERED: PIPERACILLIN/TAZOBACTAM 3.375 GM VIAL IVPB ONE ×4 (01:03→17:38)
[2019-07-21] MEDS ORDERED: DEXTROSE 5%-WATER - 50 ML IVPB ONE ×4 (01:03→17:38)
[2019-07-21] MEDS: PIPERACILLIN/TAZOB 3.375 GM 3.375 GM in DEXTROSE 5%-WATER - 50 ML IVPB SCH ×3 (01:06→17:51)
[2019-07-21] MEDS ORDERED: PT OWN MED DRAWER 7, Y5N ONE ×2 (01:48→10:26)
[2019-07-21] MEDS ORDERED: PROCHLORPERAZINE MALEATE 5 MG TABLET PO ONE (06:45)
[2019-07-21 10:21] LABS: HEMATOCRIT 31.2 % (32.4-45.2); HEMOGLOBIN 10.8 GM/dL (10.7-15.3); MCHC 34.5 g/dl (32.0-36.0); MEAN CELL VOLUME 101.7 fl (80-96); MEAN PLT VOLUME 9.5 fl (7.5-11.1); PLATELET COUNT 92 K/MM3 (134-434); RBC 3.07 M/mm3 (3.60-5.2); RDW 19.4 % (11.6-15.6)
[2019-07-21 10:30] LABS: ALBUMIN 1.9 g/dl (3.4-5.0); BILIRUBIN,TOTAL 1.2 mg/dL (0.2-1); BLOOD UREA NITROGEN 25.9 mg/dL (7-18); CALCIUM 8.3 mg/dL (8.5-10.1); POTASSIUM 3.7 mmol/L (3.5-5.1); TOT PROT 5.5 g/dl (6.4-8.2)
[2019-07-21] MEDS: CARVEDILOL 12.5 MG TABLET (FP) PO SCH ×2 (10:33→23:00)
[2019-07-21] MEDS: PANTOPRAZOLE SODIUM 40 MG VIAL IVPB SCH (10:34)
[2019-07-21] MEDS: TBO-FILGRASTIM 480 MCG/0.8 ML DISP.SYRIN SQ SCH (10:34)
[2019-07-21] MEDS: METHIMAZOLE 5 MG TABLET (FP) PO SCH ×3 (10:35→23:01)
[2019-07-21 11:01] LABS: ANISOCYTOSIS 2+; MACROCYTOSIS 2+; PLATELET ESTIMATE DECREASED
[2019-07-21] MEDS ORDERED: TBO-FILGRASTIM 480 MCG/0.8 ML DISP.SYRIN SQ ONE (14:30)
[2019-07-21] MEDS: AMINO ACIDS 4.25%/D5W 1,000 ML IV SCH (17:52)
--- NOTE | 2019-07-21 20:10 | PN ---
Progress Note, Physician History of Present Illness: Feels a little better. Denies abdominal pain. Vomiting once today, small amount. - Current Medication List Current Medications: Active Medications Carvedilol (Coreg -) 12.5 mg PO BID [facility] Last Admin: 07/21/19 10:33 Dose: Not Given IV Flush (Bryce-Cath Flush) 10 ml IVPUSH PRN PRN PRN Reason: protocol Piperacillin Sod/Tazobactam (Sod 3.375 gm/ Dextrose) 50 mls @ 100 mls/hr IVPB Q8H-IV [facility]RA; Protocol Last Admin: 07/21/19 17:51 Dose: 100 mls/hr Amino Acids (Clinimix -) 1,000 mls @ 42 mls/hr IV Q24H [facility] Last Admin: 07/21/19 17:52 Dose: 42 mls/hr Fat Emulsion-Soy/MCT/[place]/Fish Oil (Smoflipid 20% Iv Fat Emulsion) 250 mls @ 31.25 mls/hr IV DAILY@2200 [facility] Methimazole (Tapazole -) 5 mg PO BID [facility] Last Admin: 07/21/19 10:49 Dose: Not Given Ondansetron HCl (Zofran Injection) 8 mg IVPB Q8H PRN PRN Reason: NAUSEA AND/OR VOMITING Last Admin: 07/21/19 00:47 Dose: 8 mg Pantoprazole Sodium (Protonix Iv) 40 mg IVPB DAILY [facility] Last Admin: 07/21/19 10:34 Dose: 40 mg Tbo-Filgrastim (Granix -) 480 mcg SQ DAILY [facility] Last Admin: 07/21/19 10:34 Dose: 480 mcg Tramadol HCl (Ultram -) 50 mg PO Q8H PRN PRN Reason: PAIN LEVEL 4 - 6 Last Admin: 07/19/19 01:59 Dose: 50 mg - Objective Vital Signs: Vital Signs Temperature 97.9 F 07/21/19 18:00 Pulse Rate 96 H 07/21/19 18:00 Respiratory Rate 20 07/21/19 18:00 Blood Pressure 123/49 L 07/21/19 18:00 O2 Sat by Pulse Oximetry (%) 99 07/20/19 21:00 Constitutional: Yes: No Distress Eyes: Yes: Conjunctiva Clear Cardiovascular: Yes: Regular Rate and Rhythm Respiratory: Yes: Regular, CTA Bilaterally Gastrointestinal: Yes: Distention (firm). No: Tenderness Edema: No Labs: CBC, BMP 07/21/19 09:43 07/21/19 09:43 INR, PTT INR 1.00 (0.83-1.09) 07/16/19 11:25 Fibrinogen 207.0 mg/dL (238-498) L 07/12/19 06:00 Assessment/Plan 74F with rectal cancer, with extensive metastases (lung nodules, liver metastases, retroperitoneal adenopathy and adrenal mets). Started XELOX in 01/21 with very good response but then development of ascites in June s/p paracentesis x 2. Switched to irinotecan on 07/11. Admitted with reaccumulation of ascites s/p paracentesis. May need peritoneal drain depending on response to new chemo. Follow up on KRAS panel/TMB/PDL1. MSI stable s/p neupogen 07/17, 07/18 for chemo induced neutropenia, restarted today, on Zosyn empirically Persistent vomiting, possibly 2/2 partial obstruction.NPO.Awaiting CTAP report and GI consult.
[2019-07-21] MEDS ORDERED: FAT EMUL/SOY/MCT/OLIV/FISH OIL 250 ML IV SCH (22:00)
[2019-07-22] MEDS: ONDANSETRON 4 MG/2 ML VIAL IVPB PRN ×3 (00:37→22:46)
[2019-07-22] MEDS ORDERED: PIPERACILLIN/TAZOBACTAM 3.375 GM VIAL IVPB ONE ×3 (02:04→16:47)
[2019-07-22] MEDS ORDERED: DEXTROSE 5%-WATER - 50 ML IVPB ONE ×3 (02:04→16:47)
[2019-07-22] MEDS: PIPERACILLIN/TAZOB 3.375 GM 3.375 GM in DEXTROSE 5%-WATER - 50 ML IVPB SCH ×3 (02:19→17:03)
[2019-07-22] MEDS: PORTA CATH FLUSH 10 ML IVPUSH PRN (06:46)
[2019-07-22 07:30] LABS: BASO % 0.3 % (0-2.0); EOS % 1.1 % (0-4.5); HEMATOCRIT 26.7 % (32.4-45.2); HEMOGLOBIN 9.2 GM/dL (10.7-15.3); LYMPH % 22.7 % (8-40); MCH 35.4 pg (25.7-33.7); MCHC 34.6 g/dl (32.0-36.0); MEAN CELL VOLUME 102.1 fl (80-96); MEAN PLT VOLUME 8.7 fl (7.5-11.1); MONO % 11.9 % (3.8-10.2); PLATELET COUNT 77 K/MM3 (134-434); RBC 2.61 M/mm3 (3.60-5.2); RDW 19.3 % (11.6-15.6)
[2019-07-22 07:56] LABS: ALBUMIN 1.6 g/dl (3.4-5.0); BILIRUBIN,TOTAL 1.2 mg/dL (0.2-1); BLOOD UREA NITROGEN 39.7 mg/dL (7-18); CALCIUM 8.5 mg/dL (8.5-10.1); CREATININE 1.5 mg/dL (0.55-1.3); POTASSIUM 3.4 mmol/L (3.5-5.1); TOT PROT 4.9 g/dl (6.4-8.2)
[2019-07-22] MEDS ORDERED: PT OWN MED DRAWER 7, Y5N ONE ×2 (10:15→17:31)
[2019-07-22] MEDS: PANTOPRAZOLE SODIUM 40 MG VIAL IVPB SCH (10:38)
[2019-07-22] MEDS: CARVEDILOL 12.5 MG TABLET (FP) PO SCH ×2 (10:38→22:26)
[2019-07-22] MEDS: METHIMAZOLE 5 MG TABLET (FP) PO SCH ×2 (10:39→22:27)
[2019-07-22] MEDS: SODIUM CHLORIDE 1,000 ML IV SCH (10:48)
--- NOTE | 2019-07-22 11:12 | PN ---
Progress Note (short form) - Note Progress Note: Asked to see patient re: abdominal distention. This unfortunate 74 y.o. F is admitted with increasing abdominal distention, ascites, with known rectal cancer with metastases. On exam her abdomen remains quite tense. CT done yesterday, which I have reviewed, shows residual ascites but more impressively marked colonic dilation down to the level of the distal sigmoid and rectum, which are narrowed. The patient states she is having small bowel movements. She has pancytopenia secondary to chemotherapy. She has not had surgery for the rectal ca. Impression: Nearly total obstruction from rectosigmoid cancer. Consider diverting colostomy. Added risk from her ascites and pancytopenia. I think it unlikely that a colonic stent is feasible but if a surgical resident is unwilling to perform a diverting colostomy then transfer to a tertiary care center for evaluation for a possible colonic stent.
[2019-07-22 11:20] LABS: ANISOCYTOSIS 1+; MACROCYTOSIS 2+; PLATELET ESTIMATE DECREASED
[2019-07-22] MEDS: TBO-FILGRASTIM 480 MCG/0.8 ML DISP.SYRIN SQ SCH (11:35)
--- NOTE | 2019-07-22 12:46 | PN ---
Progress Note (short form) - Note Progress Note: surgery 74f with metastatic rectal ca, large ascites, neutropenic on chemotherapy, now with LBO at proximal rectum/distal sigmoid. ct reviewed with likely incompetent ileocecal valve as perforation does not appear imminent. I agree with Dr. Rowley. Diverting colostomy although technically simple (unless carcinomatosis severe) will certainly have complications from ascitic leakage at wound likely have skin/wound complications and skin/fecal raman seeding peritoneal fluid leading to peritonitis in an immunocompromised patient. Pt should be evaluated for palliative stent. recommend ngt
--- NOTE | 2019-07-22 19:36 | CONSULT ---
Consult Consult Specialty:: Nephrology Reason for Consultation:: LATRICE - History of Present Illness Chief Complaint: ascites History of Present Illness: Pt is a 74 year old female with pmhx of metastatic rectal cancer, htn, and dm who was admitted for paracentesis for ascites. She was treated with irinotecan. SHe was found to have elevated creatinine and I was called to evaluate her. She does have vomiting. She is a poor historian. She was also found to be neuropenic. She denies dysuria or hematuria. She has small bowel movements. 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 Known to have metastasis to liver , lung , ascites.) Endocrine: Yes: Diabetes Mellitus - Alcohol/Substance Use Hx Alcohol Use: No - Smoking History Smoking history: Never smoked Have you smoked in the past 12 months: No - Social History ADL: Independent History of Recent Travel: No Home Medications - Allergies Allergies/Adverse Reactions: Allergies Allergy/AdvReac Type Severity Reaction Status Date / Time No Known Allergies Allergy Verified 01/08/19 20:04 - Home Medications Home Medications: Ambulatory Orders Carvedilol [Coreg -] 25 mg PO BID 01/08/19 Famotidine [Pepcid] 40 mg PO DAILY 01/08/19 Hydrochlorothiazide [Hctz -] 12.5 mg PO DAILY 01/08/19 Methimazole [Tapazole] 5 mg PO BID 01/08/19 Oxybutynin Chloride [Ditropan Xl] 10 mg PO DAILY 01/08/19 Potassium Chloride [Klor-Con M10] 10 meq PO DAILY 01/08/19 Metformin HCl [Glucophage] 500 tablet PO BID 06/26/19 Family Medical History Family History: Denies Review of Systems - Review of Systems Constitutional: reports: Malaise Eyes: reports: No Symptoms HENT: reports: No Symptoms Cardiovascular: reports: No Symptoms Respiratory: reports: No Symptoms Gastrointestinal: reports: Abdominal Pain Genitourinary: reports: No Symptoms Musculoskeletal: reports: No Symptoms Neurological: reports: No Symptoms Endocrine: reports: No Symptoms Physical Exam Vital Signs: Vital Signs Temperature 97.2 F L 07/22/19 18:00 Pulse Rate 82 07/22/19 18:00 Respiratory Rate 18 07/22/19 18:00 Blood Pressure 126/51 L 07/22/19 18:00 O2 Sat by Pulse Oximetry (%) 100 07/22/19 09:00 Constitutional: Yes: Calm Eyes: Yes: Conjunctiva Clear HENT: Yes: Atraumatic Neck: Yes: Supple Cardiovascular: Yes: S1, S2 Respiratory: Yes: CTA Bilaterally Gastrointestinal: Yes: Ascites Renal/: Yes: WNL Musculoskeletal: Yes: WNL Edema: No Neurological: Yes: Oriented Psychiatric: Yes: Oriented Labs: CBC, BMP 07/22/19 06:20 07/22/19 06:20 Laboratory Tests 07/20/19 07/21/19 07/22/19 06:00 09:43 06:20 Sodium 134 L Potassium 3.4 L Creatinine 0.8 1.0 1.5 H Assessment/Plan Current Medications Generic Name Dose Route Start Last Admin Trade Name Freq PRN Reason Stop Dose Admin Carvedilol 12.5 mg 07/12/19 22:00 07/22/19 10:38 Coreg - PO 12.5 mg BID [facility]ITRA Administration IV Flush 10 ml 07/11/19 17:44 07/22/19 06:46 Bryce-Cath Flush IVPUSH 10 ml PRN PRN Administration protocol Piperacillin Sod/Tazobactam 50 mls @ 100 mls/hr 07/18/19 13:45 07/22/19 17:03 Sod 3.375 gm/ Dextrose IVPB 100 mls/hr Q8H-IV [facility] Administration Protocol Sodium Chloride 1,000 mls @ 60 mls/hr 07/22/19 10:30 07/22/19 10:48 Normal Saline - IV 07/23/19 10:30 60 mls/hr ASDIR [facility]RA Administration Methimazole 5 mg 07/12/19 22:00 07/22/19 10:39 Tapazole - PO 5 mg BID [facility]RA Administration Ondansetron HCl 8 mg 07/19/19 08:00 07/22/19 13:43 Zofran Injection IVPB 8 mg Q8H PRN Administration NAUSEA AND/OR VOMITING Pantoprazole Sodium 40 mg 07/20/19 16:45 07/22/19 10:38 Protonix Iv IVPB 40 mg DAILY [facility] Administration Tbo-Filgrastim 480 mcg 07/21/19 10:00 07/22/19 11:35 Granix - SQ 480 mcg DAILY [facility] Administration Tramadol HCl 50 mg 07/17/19 08:44 07/19/19 01:59 Ultram - PO 50 mg Q8H PRN Administration PAIN LEVEL 4 - 6 Impression 1. LATRICE 2. rectal adenoca 3. htn 4. dm 5. ascites 6. 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
--- NOTE | 2019-07-22 19:56 | PN ---
Progress Note, Physician History of Present Illness: Multiple episodes of vomiting today. Reports BM. Denies abdominal pain. - Current Medication List Current Medications: Active Medications Carvedilol (Coreg -) 12.5 mg PO BID [facility] Last Admin: 07/22/19 10:38 Dose: 12.5 mg IV Flush (Bryce-Cath Flush) 10 ml IVPUSH PRN PRN PRN Reason: protocol Last Admin: 07/22/19 06:46 Dose: 10 ml Piperacillin Sod/Tazobactam (Sod 3.375 gm/ Dextrose) 50 mls @ 100 mls/hr IVPB Q8H-IV [facility]; Protocol Last Admin: 07/22/19 17:03 Dose: 100 mls/hr Sodium Chloride (Normal Saline -) 1,000 mls @ 60 mls/hr IV ASDIR [facility] Stop: 07/23/19 10:30 Last Admin: 07/22/19 10:48 Dose: 60 mls/hr Methimazole (Tapazole -) 5 mg PO BID [facility] Last Admin: 07/22/19 10:39 Dose: 5 mg Ondansetron HCl (Zofran Injection) 8 mg IVPB Q8H PRN PRN Reason: NAUSEA AND/OR VOMITING Last Admin: 07/22/19 13:43 Dose: 8 mg Pantoprazole Sodium (Protonix Iv) 40 mg IVPB DAILY [facility] Last Admin: 07/22/19 10:38 Dose: 40 mg Tbo-Filgrastim (Granix -) 480 mcg SQ DAILY [facility] Last Admin: 07/22/19 11:35 Dose: 480 mcg Tramadol HCl (Ultram -) 50 mg PO Q8H PRN PRN Reason: PAIN LEVEL 4 - 6 Last Admin: 07/19/19 01:59 Dose: 50 mg - Objective Vital Signs: Vital Signs Temperature 97.2 F L 07/22/19 18:00 Pulse Rate 82 07/22/19 18:00 Respiratory Rate 18 07/22/19 18:00 Blood Pressure 126/51 L 07/22/19 18:00 O2 Sat by Pulse Oximetry (%) 100 07/22/19 09:00 Constitutional: Yes: No Distress, Thin Eyes: Yes: Conjunctiva Clear Respiratory: Yes: Regular, CTA Bilaterally Gastrointestinal: Yes: Ascites, Distention. No: Tenderness Edema: No Labs: CBC, BMP 07/22/19 06:20 07/22/19 06:20 INR, PTT INR 1.00 (0.83-1.09) 07/16/19 11:25 Fibrinogen 207.0 mg/dL (238-498) L 07/12/19 06:00 Assessment/Plan 74F with rectal cancer, with extensive metastases (lung nodules, liver metastases, retroperitoneal adenopathy and adrenal mets). Started XELOX in 01/21 with very good response but then development of ascites in June s/p paracentesis x 2. Switched to irinotecan on 07/11. Admitted with reaccumulation of ascites s/p paracentesis. May need peritoneal drain depending on response to new chemo. Follow up on KRAS panel/TMB/PDL1. MSI stable s/p neupogen 07/17, 07/18 for chemo induced neutropenia, restarted on 07/21, on Zosyn empirically CTAP read pending. Appreciate surgery and GI input -- large bowel obstruction at rectum/distal sigmoid. Diverting colostomy is likely to carry a lot of complications and stent is likely not feasible. May need to consider transfer to [facility] for further endoscopic management. Also with LATRICE, awaiting studies per nephrology Pt is NPO. Reluctant to have NGT placed despite vomiting but she will think about it
[2019-07-23] MEDS ORDERED: DEXTROSE 5%-WATER - 50 ML IVPB ONE ×3 (00:37→17:34)
[2019-07-23] MEDS ORDERED: PIPERACILLIN/TAZOBACTAM 3.375 GM VIAL IVPB ONE ×2 (00:37→12:28)
[2019-07-23] MEDS: PIPERACILLIN/TAZOB 3.375 GM 3.375 GM in DEXTROSE 5%-WATER - 50 ML IVPB SCH ×2 (01:03→12:45)
[2019-07-23 07:53] LABS: ALBUMIN 1.6 g/dl (3.4-5.0); BILIRUBIN,TOTAL 1.2 mg/dL (0.2-1); BLOOD UREA NITROGEN 54.9 mg/dL (7-18); CALCIUM 8.4 mg/dL (8.5-10.1); CREATININE 2.2 mg/dL (0.55-1.3); POTASSIUM 3.4 mmol/L (3.5-5.1); TOT PROT 4.8 g/dl (6.4-8.2)
--- NOTE | 2019-07-23 09:41 | PN ---
Progress Note, Physician History of Present Illness: GI FOLLOW UP NOTE Patient examined and case discussed with Dr Moore Patient complaints of lower abdominal pain with episodes of vomiting. Abd/ Pelvic CT scan results reviewed and show large amount of ascites, increase in large and small bowel dilatation noted to level of sigmoid colon, focal concentric wall thickening within lower third of sigmoid colon possibly representing obstructive neoplastic lesion. Patient recently had US guided paracentesis done by IR with 2500cc removed. Since fluid removal weight has been staying steady in 146-147lb range. - Current Medication List Current Medications: Active Medications Carvedilol (Coreg -) 12.5 mg PO BID [facility] Last Admin: 07/22/19 22:26 Dose: Not Given IV Flush (Bryce-Cath Flush) 10 ml IVPUSH PRN PRN PRN Reason: protocol Last Admin: 07/22/19 06:46 Dose: 10 ml Piperacillin Sod/Tazobactam (Sod 3.375 gm/ Dextrose) 50 mls @ 100 mls/hr IVPB Q8H-IV [facility]; Protocol Last Admin: 07/23/19 01:03 Dose: 100 mls/hr Sodium Chloride (Normal Saline -) 1,000 mls @ 60 mls/hr IV ASDIR [facility]ITRA Stop: 07/23/19 10:30 Last Admin: 07/22/19 10:48 Dose: 60 mls/hr Methimazole (Tapazole -) 5 mg PO BID [facility] Last Admin: 07/22/19 22:27 Dose: Not Given Ondansetron HCl (Zofran Injection) 8 mg IVPB Q8H PRN PRN Reason: NAUSEA AND/OR VOMITING Last Admin: 07/22/19 22:46 Dose: 8 mg Pantoprazole Sodium (Protonix Iv) 40 mg IVPB DAILY [facility] Last Admin: 07/22/19 10:38 Dose: 40 mg Tbo-Filgrastim (Granix -) 480 mcg SQ DAILY [facility] Last Admin: 07/22/19 11:35 Dose: 480 mcg - Objective Vital Signs: Vital Signs Temperature 97.4 F L 07/23/19 06:00 Pulse Rate 74 07/23/19 06:00 Respiratory Rate 17 07/23/19 06:00 Blood Pressure 86/44 L 07/23/19 06:00 O2 Sat by Pulse Oximetry (%) 100 07/22/19 21:00 Constitutional: Yes: No Distress, Calm, Cachectic Eyes: Yes: Conjunctiva Clear HENT: Yes: Atraumatic Cardiovascular: Yes: Regular Rate and Rhythm Respiratory: Yes: Regular, Rhonchi Gastrointestinal: Yes: Normal Bowel Sounds, Ascites Neurological: Yes: Alert Psychiatric: Yes: Alert Labs: CBC, BMP 07/22/19 06:20 07/23/19 06:10 INR, PTT INR 1.00 (0.83-1.09) 07/16/19 11:25 Fibrinogen 207.0 mg/dL (238-498) L 07/12/19 06:00 <Mary Alexis - Last Filed: 07/23/19 09:37> - Current Medication List Current Medications: Active Medications Carvedilol (Coreg -) 12.5 mg PO BID [facility] Last Admin: 07/24/19 09:58 Dose: Not Given IV Flush (Bryce-Cath Flush) 10 ml IVPUSH PRN PRN PRN Reason: protocol Last Admin: 07/22/19 06:46 Dose: 10 ml Piperacillin Sod/Tazobactam (Sod 2.25 gm/ Dextrose) 50 mls @ 100 mls/hr IVPB Q8H-IV [facility]; Protocol Last Admin: 07/24/19 09:58 Dose: 100 mls/hr Amino Acids (Clinimix -) 1,000 mls @ 42 mls/hr IV Q24H [facility] Last Admin: 07/23/19 17:56 Dose: 42 mls/hr Sodium Chloride (Normal Saline -) 1,000 mls @ 35 mls/hr IV ASDIR [facility] Last Admin: 07/23/19 17:56 Dose: 35 mls/hr Methimazole (Tapazole -) 5 mg PO BID [facility] Last Admin: 07/24/19 09:58 Dose: Not Given Ondansetron HCl (Zofran Injection) 8 mg IVPB Q8H PRN PRN Reason: NAUSEA AND/OR VOMITING Last Admin: 07/22/19 22:46 Dose: 8 mg Pantoprazole Sodium (Protonix Iv) 40 mg IVPB DAILY [facility] Last Admin: 07/24/19 09:58 Dose: 40 mg Tbo-Filgrastim (Granix -) 480 mcg SQ DAILY [facility] Last Admin: 07/23/19 13:15 Dose: 480 mcg - Objective Vital Signs: Vital Signs Temperature 97.4 F L 07/24/19 15:06 Pulse Rate 84 07/24/19 15:06 Respiratory Rate 20 07/24/19 15:06 Blood Pressure 101/50 L 07/24/19 15:06 O2 Sat by Pulse Oximetry (%) 90 L 07/24/19 09:00 Labs: CBC, BMP 07/24/19 07:00 07/24/19 07:00 INR, PTT INR 1.00 (0.83-1.09) 07/16/19 11:25 Fibrinogen 207.0 mg/dL (238-498) L 07/12/19 06:00 <Eren Moore - Last Filed: 07/24/19 16:54> Problem List - Problems (1) Rectal cancer Code(s): C20 - MALIGNANT NEOPLASM OF RECTUM (2) Ascites Code(s): R18.8 - OTHER ASCITES (3) Bowel obstruction Code(s): K56.609 - UNSP INTESTNL OBST, UNSP TO PARTIAL VERSUS COMPLETE OBST <Mary Alexis - Last Filed: 07/23/19 09:37>
[2019-07-23] MEDS: SODIUM CHLORIDE 1,000 ML IV SCH ×2 (10:04→17:56)
--- NOTE | 2019-07-23 12:12 | PN.GI ---
GI Progress Note Subjective: Continued distension, malignant ascites, feculent emesis but with small volume flatus in setting of rectum/sigmoid stricture from rectal cancer - Objective Vital Signs: Vital Signs Temperature 97.4 F L 07/23/19 06:00 Pulse Rate 74 07/23/19 06:00 Respiratory Rate 17 07/23/19 06:00 Blood Pressure 86/44 L 07/23/19 06:00 O2 Sat by Pulse Oximetry (%) 100 07/22/19 21:00 Constitutional: Calm Gastrointestinal Inspection: Yes: Ascites, Distention ...Palpate: Yes: Soft. No: Mass, Tenderness Labs: CBC, BMP 07/22/19 06:20 07/23/19 06:10 INR, PTT INR 1.00 (0.83-1.09) 07/16/19 11:25 Fibrinogen 207.0 mg/dL (238-498) L 07/12/19 06:00 Assessment/Plan Malignant ascites and obstructing mass due to metastatic rectal cancer. Favor NG tube, paracentisis with fluid replacement Will discuss possibility of transfer to [facility] and attempt at stent, though according to Dr. Muir this was previously attempted without success
[2019-07-23] MEDS: PANTOPRAZOLE SODIUM 40 MG VIAL IVPB SCH (12:45)
[2019-07-23] MEDS: METHIMAZOLE 5 MG TABLET (FP) PO SCH ×2 (12:47→21:57)
[2019-07-23] MEDS: CARVEDILOL 12.5 MG TABLET (FP) PO SCH ×2 (12:48→21:57)
--- NOTE | 2019-07-23 13:04 | PN ---
Progress Note (short form) - Note Progress Note: Patient seen and examined weak, fatigued AFVSS Cor: RSR, No murmurs, No gallops Lungs: Clear to P&A Abd: ascites+ Ext:2+ edema Labs/MEds reviewed A/P 74 y/o patient with hyperthyroidism, HTN, presented with rectal bleeding earlier this year. Noted to have a rectal mass on colonocscopy and biopsy was consistent with moderately differentiated adenoca. Also noted to have widely metastatic disease with lung nodules, liver metastases, retroperitoneal adenopathy and adrenal mets, Microsatellite stable Started XELOX in 01/21 and had very good response on imaging studies done 05/15/19 But developed ascites in June Had paracenetesis x2 . Fluid is negative for malignant cells but rapidly reaccumulating Switched to Irinotecan on 07/11 Now with malignant ascites, large bowel obstruction, renal failure discused in great detail with patient, her and her son Recommended palliative care -- paracentesis/ NG tube/ IV fluids Recommended that they make her DNR/DNI at this time will request palliative care consult Supportive care discussed with nursing staff
[2019-07-23] MEDS: TBO-FILGRASTIM 480 MCG/0.8 ML DISP.SYRIN SQ SCH (13:15)
[2019-07-23] MEDS ORDERED: SODIUM CHLORIDE 1,000 ML IV SCH (13:15)
[2019-07-23 13:52] LABS: BASO % 0.1 % (0-2.0); EOS % 0.7 % (0-4.5); HEMATOCRIT 28.3 % (32.4-45.2); HEMOGLOBIN 9.7 GM/dL (10.7-15.3); LYMPH % 37.4 % (8-40); MCH 34.8 pg (25.7-33.7); MCHC 34.2 g/dl (32.0-36.0); MEAN CELL VOLUME 101.7 fl (80-96); MEAN PLT VOLUME 8.4 fl (7.5-11.1); MONO % 9.9 % (3.8-10.2); NEUT % 51.9 % (42.8-82.8); PLATELET COUNT 77 K/MM3 (134-434); RBC 2.78 M/mm3 (3.60-5.2); RDW 19.8 % (11.6-15.6)
[2019-07-23 13:58] LABS: WHITE BLOOD COUNT 1.2 K/mm3 (4.0-10.0)
[2019-07-23 14:30] LABS: ANISOCYTOSIS 1+; MACROCYTOSIS 1+; PLATELET ESTIMATE DECREASED
[2019-07-23 14:40] LABS: ALBUMIN 1.6 g/dl (3.4-5.0); BILIRUBIN,TOTAL 1.4 mg/dL (0.2-1); BLOOD UREA NITROGEN 55.8 mg/dL (7-18); CALCIUM 8.4 mg/dL (8.5-10.1); CREATININE 2.2 mg/dL (0.55-1.3); POTASSIUM 3.5 mmol/L (3.5-5.1); TOT PROT 4.9 g/dl (6.4-8.2)
--- NOTE | 2019-07-23 16:08 | PN ---
Progress Note, Physician History of Present Illness: Pt seen and examined at bedside. She is awake and denies shortness of breath. She was made npo as she has obstruction. - Current Medication List Current Medications: Active Medications Carvedilol (Coreg -) 12.5 mg PO BID [facility] Last Admin: 07/23/19 12:48 Dose: Not Given IV Flush (Bryce-Cath Flush) 10 ml IVPUSH PRN PRN PRN Reason: protocol Last Admin: 07/22/19 06:46 Dose: 10 ml Sodium Chloride (Normal Saline -) 1,000 mls @ 125 mls/hr IV ASDIR CHITRA Piperacillin Sod/Tazobactam (Sod 2.25 gm/ Dextrose) 50 mls @ 100 mls/hr IVPB Q8H-IV [facility]; Protocol Methimazole (Tapazole -) 5 mg PO BID [facility] Last Admin: 07/23/19 12:47 Dose: Not Given Ondansetron HCl (Zofran Injection) 8 mg IVPB Q8H PRN PRN Reason: NAUSEA AND/OR VOMITING Last Admin: 07/22/19 22:46 Dose: 8 mg Pantoprazole Sodium (Protonix Iv) 40 mg IVPB DAILY [facility] Last Admin: 07/23/19 12:45 Dose: 40 mg Tbo-Filgrastim (Granix -) 480 mcg SQ DAILY [facility] Last Admin: 07/23/19 13:15 Dose: 480 mcg - Objective Vital Signs: Vital Signs Temperature 97.4 F L 07/23/19 15:11 Pulse Rate 89 07/23/19 15:11 Respiratory Rate 18 07/23/19 15:11 Blood Pressure 113/53 L 07/23/19 15:11 O2 Sat by Pulse Oximetry (%) 100 07/22/19 21:00 Constitutional: Yes: Calm Eyes: Yes: Conjunctiva Clear HENT: Yes: Atraumatic Cardiovascular: Yes: S1, S2 Respiratory: Yes: CTA Bilaterally Gastrointestinal: Yes: Ascites, Distention Genitourinary: Yes: WNL Musculoskeletal: Yes: WNL Edema: Yes Edema: LLE: 2+, RLE: 2+ Neurological: Yes: Oriented Psychiatric: Yes: Oriented Labs: CBC, BMP 07/23/19 12:33 07/23/19 12:33 INR, PTT INR 1.00 (0.83-1.09) 07/16/19 11:25 Fibrinogen 207.0 mg/dL (238-498) L 07/12/19 06:00 Assessment/Plan Current Medications Generic Name Dose Route Start Last Admin Trade Name Roselyn PRN Reason Stop Dose Admin Carvedilol 12.5 mg 07/12/19 22:00 07/23/19 12:48 Coreg - PO Not Given BID CHITRA IV Flush 10 ml 07/11/19 17:44 07/22/19 06:46 Bryce-Cath Flush IVPUSH 10 ml PRN PRN Administration protocol Sodium Chloride 1,000 mls @ 125 mls/hr 07/23/19 13:15 Normal Saline - IV ASDIR CHITRA Piperacillin Sod/Tazobactam 50 mls @ 100 mls/hr 07/23/19 18:00 Sod 2.25 gm/ Dextrose IVPB Q8H-IV CHITRA Protocol Methimazole 5 mg 07/12/19 22:00 07/23/19 12:47 Tapazole - PO Not Given BID [facility]RA Ondansetron HCl 8 mg 07/19/19 08:00 07/22/19 22:46 Zofran Injection IVPB 8 mg Q8H PRN Administration NAUSEA AND/OR VOMITING Pantoprazole Sodium 40 mg 07/20/19 16:45 07/23/19 12:45 Protonix Iv IVPB 40 mg DAILY [facility] Administration Tbo-Filgrastim 480 mcg 07/21/19 10:00 07/23/19 13:15 Granix - SQ 480 mcg DAILY [facility] Administration Impression 1. LATRICE 2. rectal adenoca 3. htn 4. dm 5. ascites 6. 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
[2019-07-23] MEDS ORDERED: PIPERACILLIN/TAZOBACTAM 2.25 GM VIAL IVPB ONE (17:34)
[2019-07-23] MEDS: PIPERACILLIN/TAZOB 2.25 GM 2.25 GM in DEXTROSE 5%-WATER - 50 ML IVPB SCH (17:47)
[2019-07-23] MEDS: AMINO ACIDS 4.25%/D5W 1,000 ML IV SCH (17:56)
[2019-07-23 19:23] LABS: EPI CELLS 8.7 /HPF (0-5/HPF); HYALINE CASTS 3 /lpf (0-8); URINE APPEARANCE TURBID; URINE BILIRUBIN 3+ (NEGATIVE); URINE COLOR DK YELLOW; URINE GLUCOSE (UA) NEGATIVE (NEGATIVE); URINE KETONE NEGATIVE (NEGATIVE); URINE LEUK ESTERASE 1+ (NEGATIVE); URINE NITRITE POSITIVE (NEGATIVE); URINE PROTEIN 1+ (NEGATIVE); URINE WBC 13 /hpf (0-5)
[2019-07-23 19:53] LABS: URINE RBC 1.7 /hpf (0-4)
[2019-07-23 19:54] LABS: URINE BACTERIA 5.5 /hpf (NEGATIVE); YEAST FEW (NEGATIVE)
[2019-07-24] MEDS ORDERED: DEXTROSE 5%-WATER - 50 ML IVPB ONE ×3 (02:42→17:01)
[2019-07-24] MEDS ORDERED: PIPERACILLIN/TAZOBACTAM 2.25 GM VIAL IVPB ONE ×3 (02:42→17:01)
[2019-07-24] MEDS: PIPERACILLIN/TAZOB 2.25 GM 2.25 GM in DEXTROSE 5%-WATER - 50 ML IVPB SCH ×3 (02:58→17:51)
--- NOTE | 2019-07-24 08:03 | PN ---
Progress Note, Physician History of Present Illness: GI FOLLOW UP NOTE Patient examined and case discussed with Dr Moore Patient complaints of lower abdominal pain. NGT placed yesterday by Dr Moore and is now to [facility] with 350cc dark green colored contents. Initial plan was sugical consult for possible diverting colostomy. As per oncology note, meeting with family occurred and patient is now DNR and palliative consult placed. - Current Medication List Current Medications: Active Medications Carvedilol (Coreg -) 12.5 mg PO BID [facility] Last Admin: 07/23/19 21:57 Dose: Not Given IV Flush (Bryce-Cath Flush) 10 ml IVPUSH PRN PRN PRN Reason: protocol Last Admin: 07/22/19 06:46 Dose: 10 ml Piperacillin Sod/Tazobactam (Sod 2.25 gm/ Dextrose) 50 mls @ 100 mls/hr IVPB Q8H-IV [facility]; Protocol Last Admin: 07/24/19 02:58 Dose: 100 mls/hr Amino Acids (Clinimix -) 1,000 mls @ 42 mls/hr IV Q24H [facility] Last Admin: 07/23/19 17:56 Dose: 42 mls/hr Sodium Chloride (Normal Saline -) 1,000 mls @ 35 mls/hr IV ASDIR [facility] Last Admin: 07/23/19 17:56 Dose: 35 mls/hr Methimazole (Tapazole -) 5 mg PO BID [facility] Last Admin: 07/23/19 21:57 Dose: Not Given Ondansetron HCl (Zofran Injection) 8 mg IVPB Q8H PRN PRN Reason: NAUSEA AND/OR VOMITING Last Admin: 07/22/19 22:46 Dose: 8 mg Pantoprazole Sodium (Protonix Iv) 40 mg IVPB DAILY [facility] Last Admin: 07/23/19 12:45 Dose: 40 mg Tbo-Filgrastim (Granix -) 480 mcg SQ DAILY [facility] Last Admin: 07/23/19 13:15 Dose: 480 mcg - Objective Vital Signs: Vital Signs Temperature 97.8 F 07/24/19 06:00 Pulse Rate 84 07/24/19 06:00 Respiratory Rate 20 07/24/19 06:00 Blood Pressure 102/48 L 07/24/19 06:00 O2 Sat by Pulse Oximetry (%) 95 07/23/19 20:48 Constitutional: Yes: No Distress, Calm Eyes: Yes: Conjunctiva Clear HENT: Yes: Atraumatic, Other (NGT L nares) Cardiovascular: Yes: Regular Rate and Rhythm Respiratory: Yes: Regular, Diminished Gastrointestinal: Yes: Normal Bowel Sounds, Soft, Ascites, Tenderness (lower abdomen) Genitourinary: Yes: Incontinence Edema: Yes Edema: LLE: 1+, RLE: 1+ Neurological: Yes: Alert Psychiatric: Yes: Alert Labs: INR, PTT INR 1.00 (0.83-1.09) 07/16/19 11:25 Fibrinogen 207.0 mg/dL (238-498) L 07/12/19 06:00 <Mary Alexis - Last Filed: 07/24/19 08:04> - Current Medication List Current Medications: Active Medications Carvedilol (Coreg -) 12.5 mg PO BID [facility] Last Admin: 07/24/19 09:58 Dose: Not Given IV Flush (Bryce-Cath Flush) 10 ml IVPUSH PRN PRN PRN Reason: protocol Last Admin: 07/22/19 06:46 Dose: 10 ml Piperacillin Sod/Tazobactam (Sod 2.25 gm/ Dextrose) 50 mls @ 100 mls/hr IVPB Q8H-IV [facility]; Protocol Last Admin: 07/24/19 09:58 Dose: 100 mls/hr Amino Acids (Clinimix -) 1,000 mls @ 42 mls/hr IV Q24H [facility] Last Admin: 07/23/19 17:56 Dose: 42 mls/hr Sodium Chloride (Normal Saline -) 1,000 mls @ 35 mls/hr IV ASDIR [facility] Last Admin: 07/23/19 17:56 Dose: 35 mls/hr Methimazole (Tapazole -) 5 mg PO BID [facility] Last Admin: 07/24/19 09:58 Dose: Not Given Ondansetron HCl (Zofran Injection) 8 mg IVPB Q8H PRN PRN Reason: NAUSEA AND/OR VOMITING Last Admin: 07/22/19 22:46 Dose: 8 mg Pantoprazole Sodium (Protonix Iv) 40 mg IVPB DAILY [facility] Last Admin: 07/24/19 09:58 Dose: 40 mg Tbo-Filgrastim (Granix -) 480 mcg SQ DAILY [facility] Last Admin: 07/23/19 13:15 Dose: 480 mcg - Objective Vital Signs: Vital Signs Temperature 97.4 F L 07/24/19 15:06 Pulse Rate 84 07/24/19 15:06 Respiratory Rate 20 07/24/19 15:06 Blood Pressure 101/50 L 07/24/19 15:06 O2 Sat by Pulse Oximetry (%) 90 L 07/24/19 09:00 Labs: CBC, BMP 07/24/19 07:00 07/24/19 07:00 INR, PTT INR 1.00 (0.83-1.09) 07/16/19 11:25 Fibrinogen 207.0 mg/dL (238-498) L 07/12/19 06:00 <Eren Moore - Last Filed: 07/24/19 16:54> Problem List - Problems (1) Rectal cancer Assessment/Plan: >Oncology on board >Palliative Consult was placed >patient is now DNR Code(s): C20 - MALIGNANT NEOPLASM OF RECTUM (2) Ascites Assessment/Plan: >Paracentesis as needed Code(s): R18.8 - OTHER ASCITES (3) Bowel obstruction Assessment/Plan: >Abd/Pelvic CT scan results reviewed and show large amount of ascites, increase in large and small bowel dilatation noted to level of sigmoid colon, focal concentric wall thickening within lower third of sigmoid colon possibly representing obstructive neoplastic lesion. >surgical consult was placed for possible diverting colostomy >palliative consult, DNR >NGT placed to [facility] Code(s): K56.609 - UNSP INTESTNL OBST, UNSP TO PARTIAL VERSUS COMPLETE OBST <Mary Alexis - Last Filed: 07/24/19 08:04> Assessment/Plan Patient with advanced metastatic colon cnacer, d/w Dr Louis--palliative measures only , family refused diverting colostomy <Eren Moore - Last Filed: 07/24/19 16:54>
[2019-07-24 08:09] LABS: ALBUMIN 1.4 g/dl (3.4-5.0); BILIRUBIN,TOTAL 1.3 mg/dL (0.2-1); BLOOD UREA NITROGEN 60.6 mg/dL (7-18); CALCIUM 8.3 mg/dL (8.5-10.1); CREATININE 2.5 mg/dL (0.55-1.3); POTASSIUM 3.2 mmol/L (3.5-5.1); TOT PROT 4.4 g/dl (6.4-8.2)
[2019-07-24 08:14] LABS: EOS % 0.5 % (0-4.5); HEMOGLOBIN 8.5 GM/dL (10.7-15.3); LYMPH % 26.8 % (8-40); MCH 34.8 pg (25.7-33.7); MCHC 34.1 g/dl (32.0-36.0); MEAN CELL VOLUME 101.9 fl (80-96); MEAN PLT VOLUME 9.2 fl (7.5-11.1); MONO % 9.9 % (3.8-10.2); NEUT % 62.8 % (42.8-82.8); PLATELET COUNT 70 K/MM3 (134-434); RBC 2.45 M/mm3 (3.60-5.2)
[2019-07-24 08:50] LABS: WHITE BLOOD COUNT 1.2 K/mm3 (4.0-10.0)
[2019-07-24] MEDS: PANTOPRAZOLE SODIUM 40 MG VIAL IVPB SCH (09:58)
[2019-07-24] MEDS: CARVEDILOL 12.5 MG TABLET (FP) PO SCH ×2 (09:58→22:23)
[2019-07-24] MEDS: METHIMAZOLE 5 MG TABLET (FP) PO SCH ×2 (09:58→22:23)
[2019-07-24 10:35] LABS: ANISOCYTOSIS 2+; MACROCYTOSIS 2+; PLATELET ESTIMATE DECREASED
[2019-07-24] MEDS: KCL 10 MEQ IVPB 10 MEQ/100 ML INFUS.BAG IVPB SCH ×3 (10:39→13:59)
[2019-07-24] MEDS ORDERED: AMINO ACIDS 4.25%/D5W 1,000 ML IV SCH (17:20)
[2019-07-24] MEDS ORDERED: SODIUM CHLORIDE 1,000 ML with POTASSIUM CHLORIDE 10 MEQ IVPB SCH (17:20)
--- NOTE | 2019-07-24 17:20 | PN ---
Progress Note, Physician History of Present Illness: Pt seen and examined at bedside. She appears fatigued. Her urine output is decreased and urine is concentrated. She is NPO. - Current Medication List Current Medications: Active Medications Carvedilol (Coreg -) 12.5 mg PO BID [facility] Last Admin: 07/24/19 09:58 Dose: Not Given IV Flush (Bryce-Cath Flush) 10 ml IVPUSH PRN PRN PRN Reason: protocol Last Admin: 07/22/19 06:46 Dose: 10 ml Piperacillin Sod/Tazobactam (Sod 2.25 gm/ Dextrose) 50 mls @ 100 mls/hr IVPB Q8H-IV [facility]; Protocol Last Admin: 07/24/19 09:58 Dose: 100 mls/hr Amino Acids (Clinimix -) 1,000 mls @ 42 mls/hr IV Q24H [facility] Last Admin: 07/23/19 17:56 Dose: 42 mls/hr Sodium Chloride (Normal Saline -) 1,000 mls @ 35 mls/hr IV ASDIR [facility] Last Admin: 07/23/19 17:56 Dose: 35 mls/hr Methimazole (Tapazole -) 5 mg PO BID [facility] Last Admin: 07/24/19 09:58 Dose: Not Given Ondansetron HCl (Zofran Injection) 8 mg IVPB Q8H PRN PRN Reason: NAUSEA AND/OR VOMITING Last Admin: 07/22/19 22:46 Dose: 8 mg Pantoprazole Sodium (Protonix Iv) 40 mg IVPB DAILY [facility] Last Admin: 07/24/19 09:58 Dose: 40 mg Tbo-Filgrastim (Granix -) 480 mcg SQ DAILY [facility] Last Admin: 07/23/19 13:15 Dose: 480 mcg - Objective Vital Signs: Vital Signs Temperature 97.4 F L 07/24/19 15:06 Pulse Rate 84 07/24/19 15:06 Respiratory Rate 20 07/24/19 15:06 Blood Pressure 101/50 L 07/24/19 15:06 O2 Sat by Pulse Oximetry (%) 90 L 07/24/19 09:00 Constitutional: Yes: Calm Eyes: Yes: Conjunctiva Clear HENT: Yes: Atraumatic Neck: Yes: Supple Cardiovascular: Yes: S1, S2 Respiratory: Yes: CTA Bilaterally Gastrointestinal: Yes: Ascites Genitourinary: Yes: Dunne Present Musculoskeletal: Yes: Muscle Weakness Edema: Yes Edema: LLE: 1+, RLE: 1+ Neurological: Yes: Confusion Labs: CBC, BMP 07/24/19 07:00 07/24/19 07:00 INR, PTT INR 1.00 (0.83-1.09) 07/16/19 11:25 Fibrinogen 207.0 mg/dL (238-498) L 07/12/19 06:00 Assessment/Plan Current Medications Generic Name Dose Route Start Last Admin Trade Name Freq PRN Reason Stop Dose Admin Carvedilol 12.5 mg 07/12/19 22:00 07/24/19 09:58 Coreg - PO Not Given BID [facility] IV Flush 10 ml 07/11/19 17:44 07/22/19 06:46 Bryce-Cath Flush IVPUSH 10 ml PRN PRN Administration protocol Piperacillin Sod/Tazobactam 50 mls @ 100 mls/hr 07/23/19 18:00 07/24/19 09:58 Sod 2.25 gm/ Dextrose IVPB 100 mls/hr Q8H-IV [facility] Administration Protocol Amino Acids 1,000 mls @ 42 mls/hr 07/23/19 16:15 07/23/19 17:56 Clinimix - IV 42 mls/hr Q24H [facility] Administration Sodium Chloride 1,000 mls @ 35 mls/hr 07/23/19 16:08 07/23/19 17:56 Normal Saline - IV 35 mls/hr ASDIR [facility] Administration Methimazole 5 mg 07/12/19 22:00 07/24/19 09:58 Tapazole - PO Not Given BID [facility] Ondansetron HCl 8 mg 07/19/19 08:00 07/22/19 22:46 Zofran Injection IVPB 8 mg Q8H PRN Administration NAUSEA AND/OR VOMITING Pantoprazole Sodium 40 mg 07/20/19 16:45 07/24/19 09:58 Protonix Iv IVPB 40 mg DAILY [facility] Administration Tbo-Filgrastim 480 mcg 07/21/19 10:00 07/23/19 13:15 Granix - SQ 480 mcg DAILY [facility] Administration Impression 1. LATRICE 2. rectal adenoca 3. htn 4. dm 5. ascites 6. uti 7. hypokalemia Plan - increase fluids - replace potassium - monitor lytes - monitor urine output - follow ultrasound and urine studies - renal function worse - discuss GOC
[2019-07-24] MEDS: TBO-FILGRASTIM 480 MCG/0.8 ML DISP.SYRIN SQ SCH (17:51)
[2019-07-24] MEDS: AMINO ACIDS 4.25%/D5W 1,000 ML IV SCH (18:14)
[2019-07-24] MEDS: SODIUM CHLORIDE 1,000 ML IV SCH (18:14)
[2019-07-24] MEDS: POTASSIUM CHLORIDE 10 MEQ in SODIUM CHLORIDE 1,000 ML IVPB SCH (20:09)
--- NOTE | 2019-07-24 20:34 | PN ---
Progress Note (short form) - Note Progress Note: Patient seen and examined Denies significant pains Last Vital Signs Temp Pulse Resp BP Pulse Ox 97.8 F 87 18 100/55 L 90 L 07/24/19 18:14 07/24/19 18:14 07/24/19 18:14 07/24/19 18:14 07/24/19 09:00 HEENT: KOFFI, EOM Intact Oropharynx: No thrush, No mucositis,NG tub in place Cor: RSR, No murmurs, No gallops Lungs: decreased breath sounds bilaterally Abd: tense ascites Skin: No rashes, Integument intact CBC, BMP 07/24/19 07:00 07/24/19 07:00 Current Medications Generic Name Dose Route Start Last Admin Trade Name Freq PRN Reason Stop Dose Admin Carvedilol 12.5 mg 07/12/19 22:00 07/24/19 09:58 Coreg - PO Not Given BID [facility] IV Flush 10 ml 07/11/19 17:44 07/22/19 06:46 Bryce-Cath Flush IVPUSH 10 ml PRN PRN Administration protocol Piperacillin Sod/Tazobactam 50 mls @ 100 mls/hr 07/23/19 18:00 07/24/19 17:51 Sod 2.25 gm/ Dextrose IVPB 100 mls/hr Q8H-IV [facility] Administration Protocol Amino Acids 1,000 mls @ 55 mls/hr 07/24/19 17:20 07/24/19 17:52 Clinimix - IV 55 mls/hr Q18H [facility] Administration Potassium Chloride 10 meq/ 1,005 mls @ 75 mls/hr 07/24/19 17:29 07/24/19 20: 09 Sodium Chloride IVPB 75 mls/hr Q13H [facility] Administration Methimazole 5 mg 07/12/19 22:00 07/24/19 09:58 Tapazole - PO Not Given BID [facility] Ondansetron HCl 8 mg 07/19/19 08:00 07/22/19 22:46 Zofran Injection IVPB 8 mg Q8H PRN Administration NAUSEA AND/OR VOMITING Pantoprazole Sodium 40 mg 07/20/19 16:45 07/24/19 09:58 Protonix Iv IVPB 40 mg DAILY [facility] Administration Tbo-Filgrastim 480 mcg 07/21/19 10:00 07/24/19 17:51 Granix - SQ 480 mcg DAILY [facility] Administration Impression Metastatic colon ca Malignant asites Bowel obstruction DNR/DNI Anemia Neutropenia Comfort care
[2019-07-25] MEDS ORDERED: PIPERACILLIN/TAZOBACTAM 2.25 GM VIAL IVPB ONE ×3 (00:53→16:27)
[2019-07-25] MEDS ORDERED: DEXTROSE 5%-WATER - 50 ML IVPB ONE ×3 (00:53→16:27)
[2019-07-25] MEDS: PIPERACILLIN/TAZOB 2.25 GM 2.25 GM in DEXTROSE 5%-WATER - 50 ML IVPB SCH ×3 (01:02→17:15)
[2019-07-25] MEDS: POTASSIUM CHLORIDE 10 MEQ in SODIUM CHLORIDE 1,000 ML IVPB SCH ×2 (07:30→17:15)
[2019-07-25 08:24] LABS: BILIRUBIN,TOTAL 0.8 mg/dL (0.2-1); BLOOD UREA NITROGEN 59.2 mg/dL (7-18); CREATININE 1.8 mg/dL (0.55-1.3); TOT PROT 3.4 g/dl (6.4-8.2)
[2019-07-25 08:43] LABS: CALCIUM 6.3 mg/dL (8.5-10.1)
[2019-07-25 09:07] LABS: BASO % 0.1 % (0-2.0); EOS % 0.9 % (0-4.5); HEMATOCRIT 27.9 % (32.4-45.2); HEMOGLOBIN 9.3 GM/dL (10.7-15.3); LYMPH % 16.8 % (8-40); MCH 34.5 pg (25.7-33.7); MCHC 33.3 g/dl (32.0-36.0); MEAN CELL VOLUME 103.5 fl (80-96); MEAN PLT VOLUME 10.7 fl (7.5-11.1); MONO % 4.5 % (3.8-10.2); NEUT % 77.7 % (42.8-82.8); PLATELET COUNT 95 K/MM3 (134-434); RBC 2.69 M/mm3 (3.60-5.2); RDW 19.7 % (11.6-15.6); WHITE BLOOD COUNT 2.5 K/mm3 (4.0-10.0)
[2019-07-25] MEDS: PANTOPRAZOLE SODIUM 40 MG VIAL IVPB SCH (09:22)
[2019-07-25] MEDS: CARVEDILOL 12.5 MG TABLET (FP) PO SCH ×2 (09:22→21:55)
[2019-07-25] MEDS: METHIMAZOLE 5 MG TABLET (FP) PO SCH ×2 (09:23→21:55)
[2019-07-25 11:13] LABS: ANISOCYTOSIS 1+; MACROCYTOSIS 1+; PLATELET ESTIMATE DECREASED
[2019-07-25 12:04] LABS: BLOOD UREA NITROGEN 75.8 mg/dL (7-18); CALCIUM 8.3 mg/dL (8.5-10.1); CREATININE 2.2 mg/dL (0.55-1.3); POTASSIUM 3.6 mmol/L (3.5-5.1)
[2019-07-25] MEDS: AMINO ACIDS 4.25%/D5W 1,000 ML IV SCH ×2 (13:52→17:14)
[2019-07-25 15:20] VITALS: BMI 23.0
[2019-07-25] MEDS ORDERED: POTASSIUM CHLORIDE 10 MEQ in SODIUM CHLORIDE 1,000 ML IVPB ONE (16:45)
[2019-07-25] MEDS: TBO-FILGRASTIM 480 MCG/0.8 ML DISP.SYRIN SQ SCH (17:15)
--- NOTE | 2019-07-25 19:46 | PN ---
Progress Note, Physician History of Present Illness: Pt seen and examined at bedside. She denies shortness of breath. - Current Medication List Current Medications: Active Medications Carvedilol (Coreg -) 12.5 mg PO BID [facility] Last Admin: 07/25/19 09:22 Dose: Not Given IV Flush (Bryce-Cath Flush) 10 ml IVPUSH PRN PRN PRN Reason: protocol Last Admin: 07/22/19 06:46 Dose: 10 ml Piperacillin Sod/Tazobactam (Sod 2.25 gm/ Dextrose) 50 mls @ 100 mls/hr IVPB Q8H-IV [facility]; Protocol Last Admin: 07/25/19 17:15 Dose: 100 mls/hr Amino Acids (Clinimix -) 1,000 mls @ 40 mls/hr IV Q24H [facility] Last Admin: 07/25/19 17:14 Dose: 40 mls/hr Potassium Chloride 10 meq/ (Sodium Chloride) 1,005 mls @ 60 mls/hr IVPB Q16H [facility] Last Admin: 07/25/19 17:15 Dose: 60 mls/hr Methimazole (Tapazole -) 5 mg PO BID [facility] Last Admin: 07/25/19 09:23 Dose: Not Given Ondansetron HCl (Zofran Injection) 8 mg IVPB Q8H PRN PRN Reason: NAUSEA AND/OR VOMITING Last Admin: 07/22/19 22:46 Dose: 8 mg Pantoprazole Sodium (Protonix Iv) 40 mg IVPB DAILY [facility] Last Admin: 07/25/19 09:22 Dose: 40 mg Tbo-Filgrastim (Granix -) 480 mcg SQ DAILY [facility] Last Admin: 07/25/19 17:15 Dose: 480 mcg - Objective Vital Signs: Vital Signs Temperature 97.0 F L 07/25/19 18:15 Pulse Rate 79 07/25/19 18:15 Respiratory Rate 18 07/25/19 18:15 Blood Pressure 102/53 L 07/25/19 18:15 O2 Sat by Pulse Oximetry (%) 93 L 07/25/19 09:00 Constitutional: Yes: Moderate Distress Eyes: Yes: Conjunctiva Clear HENT: Yes: Atraumatic Cardiovascular: Yes: S1, S2 Respiratory: Yes: On Nasal O2 Gastrointestinal: Yes: Ascites Genitourinary: Yes: Dunne Present Musculoskeletal: Yes: Muscle Weakness Edema: Yes Edema: LLE: 1+, RLE: 1+ Neurological: Yes: Confusion Labs: CBC, BMP 07/25/19 06:00 07/25/19 10:37 INR, PTT INR 1.00 (0.83-1.09) 07/16/19 11:25 Fibrinogen 207.0 mg/dL (238-498) L 07/12/19 06:00 Assessment/Plan Current Medications Generic Name Dose Route Start Last Admin Trade Name Freq PRN Reason Stop Dose Admin Carvedilol 12.5 mg 07/12/19 22:00 07/25/19 09:22 Coreg - PO Not Given BID [facility] IV Flush 10 ml 07/11/19 17:44 07/22/19 06:46 Bryce-Cath Flush IVPUSH 10 ml PRN PRN Administration protocol Piperacillin Sod/Tazobactam 50 mls @ 100 mls/hr 07/23/19 18:00 07/25/19 17:15 Sod 2.25 gm/ Dextrose IVPB 100 mls/hr Q8H-IV [facility] Administration Protocol Amino Acids 1,000 mls @ 40 mls/hr 07/25/19 08:29 07/25/19 17:14 Clinimix - IV 40 mls/hr Q24H [facility] Administration Potassium Chloride 10 meq/ 1,005 mls @ 60 mls/hr 07/25/19 16:45 07/25/19 17: 15 Sodium Chloride IVPB 60 mls/hr Q16H [facility] Administration Methimazole 5 mg 07/12/19 22:00 07/25/19 09:23 Tapazole - PO Not Given BID [facility] Ondansetron HCl 8 mg 07/19/19 08:00 07/22/19 22:46 Zofran Injection IVPB 8 mg Q8H PRN Administration NAUSEA AND/OR VOMITING Pantoprazole Sodium 40 mg 07/20/19 16:45 07/25/19 09:22 Protonix Iv IVPB 40 mg DAILY [facility] Administration Tbo-Filgrastim 480 mcg 07/21/19 10:00 07/25/19 17:15 Granix - SQ 480 mcg DAILY [facility] Administration Impression 1. LATRICE 2. rectal adenoca 3. htn 4. dm 5. ascites 6. uti 7. hypokalemia Plan - cont fluids - pt going for paracentesis - renal function improving - monitor lytes
--- NOTE | 2019-07-25 21:51 | PN ---
Progress Note (short form) - Note Progress Note: Patient seen and examined Paracentesis held secondary to hypotension Problems with secretions Last Vital Signs Temp Pulse Resp BP Pulse Ox 97.0 F L 79 18 102/53 L 93 L 07/25/19 18:15 07/25/19 18:15 07/25/19 18:15 07/25/19 18:15 07/25/19 09:00 Lungs - diminished breath sounds, rhonchi Cor-RSR Abdomen - ascits CBC, BMP 07/25/19 06:00 07/25/19 10:37 Current Medications Generic Name Dose Route Start Last Admin Trade Name Freq PRN Reason Stop Dose Admin Carvedilol 12.5 mg 07/12/19 22:00 07/25/19 09:22 Coreg - PO Not Given BID [facility] IV Flush 10 ml 07/11/19 17:44 07/22/19 06:46 Bryce-Cath Flush IVPUSH 10 ml PRN PRN Administration protocol Piperacillin Sod/Tazobactam 50 mls @ 100 mls/hr 07/23/19 18:00 07/25/19 17:15 Sod 2.25 gm/ Dextrose IVPB 100 mls/hr Q8H-IV [facility] Administration Protocol Amino Acids 1,000 mls @ 40 mls/hr 07/25/19 08:29 07/25/19 17:14 Clinimix - IV 40 mls/hr Q24H [facility] Administration Potassium Chloride 10 meq/ 1,005 mls @ 60 mls/hr 07/25/19 16:45 07/25/19 17: 15 Sodium Chloride IVPB 60 mls/hr Q16H [facility] Administration Methimazole 5 mg 07/12/19 22:00 07/25/19 09:23 Tapazole - PO Not Given BID [facility] Ondansetron HCl 8 mg 07/19/19 08:00 07/22/19 22:46 Zofran Injection IVPB 8 mg Q8H PRN Administration NAUSEA AND/OR VOMITING Pantoprazole Sodium 40 mg 07/20/19 16:45 07/25/19 09:22 Protonix Iv IVPB 40 mg DAILY [facility] Administration Tbo-Filgrastim 480 mcg 07/21/19 10:00 07/25/19 17:15 Granix - SQ 480 mcg DAILY [facility] Administration Impression: DNR/DNI Colon ca /mets Pancytopenia ( some improvement in WBC count) Bowel obstruction Ascites ?? SPA to raise BP to facilitate paracentesis
[2019-07-26] MEDS ORDERED: DEXTROSE 5%-WATER - 50 ML IVPB ONE ×3 (01:02→16:37)
[2019-07-26] MEDS ORDERED: PIPERACILLIN/TAZOBACTAM 2.25 GM VIAL IVPB ONE ×3 (01:02→16:37)
[2019-07-26] MEDS: PIPERACILLIN/TAZOB 2.25 GM 2.25 GM in DEXTROSE 5%-WATER - 50 ML IVPB SCH ×3 (01:10→17:10)
[2019-07-26] MEDS ORDERED: PT OWN MED DRAWER 7, Y5N ONE ×3 (03:45→20:52)
[2019-07-26] MEDS: ONDANSETRON 4 MG/2 ML VIAL IVPB PRN ×2 (04:45→04:51)
[2019-07-26] MEDS: AMINO ACIDS 4.25%/D5W 1,000 ML IV SCH (09:05)
[2019-07-26] MEDS: CARVEDILOL 12.5 MG TABLET (FP) PO SCH ×3 (09:26→21:29)
[2019-07-26] MEDS: PANTOPRAZOLE SODIUM 40 MG VIAL IVPB SCH (09:27)
[2019-07-26] MEDS: METHIMAZOLE 5 MG TABLET (FP) PO SCH ×3 (09:28→21:29)
[2019-07-26] MEDS: TBO-FILGRASTIM 480 MCG/0.8 ML DISP.SYRIN SQ SCH (10:32)
--- NOTE | 2019-07-26 10:57 | CONSULT ---
Consult Consult Specialty:: Endocrinology Referred by:: Dr Segura Reason for Consultation:: Hyperglycemia - History of Present Illness Chief Complaint: Ascites History of Present Illness: This is a 74 y/o F with h/o hyperthyroidism, T2DM recently (antidiabetic meds discontinued), HTN, who presented with rectal bleeding earlier this year and noted to have a rectal mass on colonocscopy and biopsy was consistent with moderately differentiated adenoca. Also noted to have widely metastatic disease with lung nodules, liver metastases, retroperitoneal adenopathy and adrenal mets. Pt admitted with recurrent ascites. Pt referred for management of Hyperglycemia. - History Source History Provided By: Patient, Family Member - Past Medical History Cardio/Vascular: Yes: HTN Gastrointestinal: Yes: Other (H/O known distal colon carcinoma , atleast since December 2018. Known to have metastasis to liver , lung , ascites.) Endocrine: Yes: Diabetes Mellitus, Hyperthyroidism - Alcohol/Substance Use Hx Alcohol Use: No - Smoking History Smoking history: Never smoked Have you smoked in the past 12 months: No - Social History ADL: Independent History of Recent Travel: No Home Medications - Allergies Allergies/Adverse Reactions: Allergies Allergy/AdvReac Type Severity Reaction Status Date / Time No Known Allergies Allergy Verified 01/08/19 20:04 - Home Medications Home Medications: Ambulatory Orders Carvedilol [Coreg -] 25 mg PO BID 01/08/19 Famotidine [Pepcid] 40 mg PO DAILY 01/08/19 Hydrochlorothiazide [Hctz -] 12.5 mg PO DAILY 01/08/19 Methimazole [Tapazole] 5 mg PO BID 01/08/19 Oxybutynin Chloride [Ditropan Xl] 10 mg PO DAILY 01/08/19 Potassium Chloride [Klor-Con M10] 10 meq PO DAILY 01/08/19 Metformin HCl [Glucophage] 500 tablet PO BID 06/26/19 Review of Systems - Review of Systems Constitutional: reports: Loss of Appetite, Malaise Eyes: reports: No Symptoms Neck: reports: No Symptoms Cardiovascular: reports: No Symptoms Musculoskeletal: reports: No Symptoms Neurological: reports: Weakness Endocrine: reports: No Symptoms Hematology/Lymphatic: reports: No Symptoms Physical Exam Vital Signs: Vital Signs Temperature 97.4 F L 07/26/19 09:00 Pulse Rate 80 07/26/19 09:00 Respiratory Rate 18 07/26/19 09:00 Blood Pressure 89/42 L 07/26/19 09:00 O2 Sat by Pulse Oximetry (%) 98 07/25/19 21:00 Constitutional: Yes: Cachectic Eyes: Yes: Conjunctiva Clear, EOM Intact HENT: Yes: Atraumatic, Normocephalic Neck: Yes: Supple, Trachea Midline Cardiovascular: Yes: Regular Rate and Rhythm Respiratory: Yes: Regular, CTA Bilaterally Gastrointestinal: Yes: Soft, Ascites Edema: No Neurological: Yes: Alert Labs: CBC, BMP 07/25/19 06:00 07/25/19 10:37 Assessment/Plan AP: Rectal Adenoca T2DM with hyperglycemia Hyperthyroidism Pancytopenia LATRICE Ascites HTN Hypokalemia On Clinimix TFT in AM BGM QACHS Novolog SS coverage Monitor electrolyted Electrolyte replacement as necessary
[2019-07-26] MEDS: POTASSIUM CHLORIDE 10 MEQ in SODIUM CHLORIDE 1,000 ML IVPB SCH (11:57)
[2019-07-26] MEDS: INSULIN SLIDING SCALE (NOVOLOG) 1 VIAL SQ SCH ×2 (12:04→16:34)
[2019-07-26 12:11] LABS: BASO % 0.2 % (0-2.0); EOS % 0.3 % (0-4.5); HEMATOCRIT 25.6 % (32.4-45.2); HEMOGLOBIN 8.7 GM/dL (10.7-15.3); LYMPH % 8.9 % (8-40); MCH 34.6 pg (25.7-33.7); MEAN CELL VOLUME 101.7 fl (80-96); MEAN PLT VOLUME 8.3 fl (7.5-11.1); MONO % 5.1 % (3.8-10.2); NEUT % 85.5 % (42.8-82.8); PLATELET COUNT 55 K/MM3 (134-434); RBC 2.52 M/mm3 (3.60-5.2); RDW 20.2 % (11.6-15.6); WHITE BLOOD COUNT 4.1 K/mm3 (4.0-10.0)
[2019-07-26 12:42] LABS: ALBUMIN 1.3 g/dl (3.4-5.0); BILIRUBIN,TOTAL 1.2 mg/dL (0.2-1); BLOOD UREA NITROGEN 82.9 mg/dL (7-18); CALCIUM 8.6 mg/dL (8.5-10.1); CREATININE 2.4 mg/dL (0.55-1.3); POTASSIUM 3.6 mmol/L (3.5-5.1); TOT PROT 4.4 g/dl (6.4-8.2)
[2019-07-26] MEDS ORDERED: SODIUM CHLORIDE 1,000 ML IV SCH (12:45)
[2019-07-26 12:55] LABS: ANISOCYTOSIS 2+; MACROCYTOSIS 2+; PLATELET ESTIMATE DECREASED; TARGET CELLS 1+
--- NOTE | 2019-07-26 16:17 | PN ---
Progress Note, Physician History of Present Illness: Pt seen and examined at bedside. She is awake but uncomfortable. - Current Medication List Current Medications: Active Medications Carvedilol (Coreg -) 12.5 mg PO BID [facility] Last Admin: 07/26/19 09:41 Dose: Not Given IV Flush (Bryce-Cath Flush) 10 ml IVPUSH PRN PRN PRN Reason: protocol Last Admin: 07/22/19 06:46 Dose: 10 ml Piperacillin Sod/Tazobactam (Sod 2.25 gm/ Dextrose) 50 mls @ 100 mls/hr IVPB Q8H-IV [facility]; Protocol Last Admin: 07/26/19 09:25 Dose: 100 mls/hr Amino Acids (Clinimix -) 1,000 mls @ 40 mls/hr IV Q24H [facility] Last Admin: 07/26/19 09:05 Dose: 40 mls/hr Sodium Chloride (Normal Saline -) 1,000 mls @ 60 mls/hr IV ASDIR [facility] Last Admin: 07/26/19 13:02 Dose: 60 mls/hr Insulin Aspart (Novolog Vial Sliding Scale -) 1 vial SQ TIDAC [facility]; Protocol Last Admin: 07/26/19 12:04 Dose: Not Given Methimazole (Tapazole -) 5 mg PO BID [facility] Last Admin: 07/26/19 09:45 Dose: Not Given Ondansetron HCl (Zofran Injection) 8 mg IVPB Q8H PRN PRN Reason: NAUSEA AND/OR VOMITING Last Admin: 07/26/19 04:51 Dose: 8 mg Pantoprazole Sodium (Protonix Iv) 40 mg IVPB DAILY [facility] Last Admin: 07/26/19 09:27 Dose: 40 mg Tbo-Filgrastim (Granix -) 480 mcg SQ DAILY [facility] Last Admin: 07/26/19 10:32 Dose: 480 mcg - Objective Vital Signs: Vital Signs Temperature 97.7 F 07/26/19 13:01 Pulse Rate 80 07/26/19 13:01 Respiratory Rate 18 07/26/19 13:01 Blood Pressure 85/49 L 07/26/19 15:37 O2 Sat by Pulse Oximetry (%) 96 07/26/19 15:05 Constitutional: Yes: Moderate Distress Cardiovascular: Yes: S1, S2 Respiratory: Yes: CTA Bilaterally Gastrointestinal: Yes: Soft Genitourinary: Yes: Dunne Present Musculoskeletal: Yes: Muscle Weakness Edema: Yes Edema: LLE: 2+, RLE: 2+ Neurological: Yes: Confusion Labs: CBC, BMP 07/26/19 12:00 07/26/19 10:12 INR, PTT INR 1.00 (0.83-1.09) 07/16/19 11:25 Fibrinogen 207.0 mg/dL (238-498) L 07/12/19 06:00 Assessment/Plan Current Medications Generic Name Dose Route Start Last Admin Trade Name Freq PRN Reason Stop Dose Admin Carvedilol 12.5 mg 07/12/19 22:00 07/26/19 09:41 Coreg - PO Not Given BID [facility] IV Flush 10 ml 07/11/19 17:44 07/22/19 06:46 Bryce-Cath Flush IVPUSH 10 ml PRN PRN Administration protocol Piperacillin Sod/Tazobactam 50 mls @ 100 mls/hr 07/23/19 18:00 07/26/19 09:25 Sod 2.25 gm/ Dextrose IVPB 100 mls/hr Q8H-IV [facility] Administration Protocol Amino Acids 1,000 mls @ 40 mls/hr 07/25/19 08:29 07/26/19 09:05 Clinimix - IV 40 mls/hr Q24H [facility] Administration Sodium Chloride 1,000 mls @ 60 mls/hr 07/26/19 12:45 07/26/19 13:02 Normal Saline - IV 60 mls/hr ASDIR [facility] Administration Insulin Aspart 1 vial 07/26/19 11:00 07/26/19 12:04 Novolog Vial Sliding Scale - SQ Not Given TIDAC [facility] Protocol Methimazole 5 mg 07/12/19 22:00 07/26/19 09:45 Tapazole - PO Not Given BID [facility] Ondansetron HCl 8 mg 07/19/19 08:00 07/26/19 04:51 Zofran Injection IVPB 8 mg Q8H PRN Administration NAUSEA AND/OR VOMITING Pantoprazole Sodium 40 mg 07/20/19 16:45 07/26/19 09:27 Protonix Iv IVPB 40 mg DAILY [facility] Administration Tbo-Filgrastim 480 mcg 07/21/19 10:00 07/26/19 10:32 Granix - SQ 480 mcg DAILY [facility] Administration Impression 1. LATRICE 2. rectal adenoca 3. htn 4. dm 5. ascites 6. uti 7. hypokalemia Plan - hold coreg as she is hypotensive - cont fluids and monitor volume status - pt is NPO with ng tube - monitor output - prognosis is poor - discuss GOC
[2019-07-26] MEDS ORDERED: INSULIN (NOVOLOG) ASPART 100 UNITS/ML 10ML VIAL ONE (16:31)
[2019-07-27] MEDS ORDERED: PIPERACILLIN/TAZOBACTAM 2.25 GM VIAL IVPB ONE ×3 (00:07→16:40)
[2019-07-27] MEDS ORDERED: DEXTROSE 5%-WATER - 50 ML IVPB ONE ×3 (00:08→16:41)
[2019-07-27] MEDS: PIPERACILLIN/TAZOB 2.25 GM 2.25 GM in DEXTROSE 5%-WATER - 50 ML IVPB SCH ×3 (02:36→17:07)
--- NOTE | 2019-07-27 06:16 | PN ---
Progress Note (short form) - Note Progress Note: Patient seen and examined weak, fatigued AFVSS Cor: RSR, No murmurs, No gallops Lungs: Clear to P&A Abd: ascites+ Ext:2+ edema Labs/MEds reviewed A/P 74 y/o patient with hyperthyroidism, HTN, presented with rectal bleeding earlier this year. Noted to have a rectal mass on colonocscopy and biopsy was consistent with moderately differentiated adenoca. Also noted to have widely metastatic disease with lung nodules, liver metastases, retroperitoneal adenopathy and adrenal mets, Microsatellite stable Started XELOX in 01/21 and had very good response on imaging studies done 05/15/19 But developed ascites in June Had paracenetesis x2 . Fluid is negative for malignant cells but rapidly reaccumulating Switched to Irinotecan on 07/11 s/p peritoneal pig tail catheter Now with malignant ascites, large bowel obstruction, renal failure Rediscussed with and son For hospice care. For home hospice evaluation
[2019-07-27] MEDS: INSULIN SLIDING SCALE (NOVOLOG) 1 VIAL SQ SCH ×3 (06:50→17:06)
[2019-07-27] MEDS ORDERED: INSULIN (NOVOLOG) ASPART 100 UNITS/ML 10ML VIAL ONE (06:53)
[2019-07-27] MEDS: SODIUM CHLORIDE 1,000 ML IV SCH (07:21)
--- NOTE | 2019-07-27 09:16 | PN ---
Progress Note (short form) - Note Progress Note: Awake responsive Denies any complaints Vital Signs Period Temp Pulse Resp BP Sys/Dennison Pulse Ox Last 24 Hr 97.4 F-97.9 F 77-83 18-22 80-104/39-53 94-96 PE: Awake, drowsy Neck: Supple HEENT: +NGtube Lungs: CTA CVS: s1S2 Abd: +ascites EXt: +edema CMP Sodium 135 mmol/L (136-145) L 07/26/19 10:12 Potassium 3.6 mmol/L (3.5-5.1) 07/26/19 10:12 Chloride 106 mmol/L (98-107) 07/26/19 10:12 Carbon Dioxide 21 mmol/L (21-32) 07/26/19 10:12 Anion Gap 8 MMOL/L (8-16) 07/26/19 10:12 BUN 82.9 mg/dL (7-18) H 07/26/19 10:12 Creatinine 2.4 mg/dL (0.55-1.3) H 07/26/19 10:12 Est GFR (CKD-EPI)AfAm 22.62 07/26/19 10:12 Est GFR (CKD-EPI)NonAf 19.51 07/26/19 10:12 POC Glucometer 189 UNITS (80-120) 07/26/19 20:32 Random Glucose 243 mg/dL (74-106) H 07/26/19 10:12 Lactic Acid 1.5 mmol/L (0.4-2.0) 07/22/19 06:20 Calcium 8.6 mg/dL (8.5-10.1) 07/26/19 10:12 Magnesium 2.0 mg/dL (1.8-2.4) 07/19/19 06:25 Total Bilirubin 1.2 mg/dL (0.2-1) H 07/26/19 10:12 Direct Bilirubin 0.7 mg/dL (0.0-0.2) H 07/11/19 10:39 AST 21 U/L (15-37) 07/26/19 10:12 ALT 16 U/L (13-61) 07/26/19 10:12 Alkaline Phosphatase 55 U/L (45-117) 07/26/19 10:12 Total Protein 4.4 g/dl (6.4-8.2) L 07/26/19 10:12 Albumin 1.3 g/dl (3.4-5.0) L 07/26/19 10:12 TSH 0.16 uIU/ml (0.358-3.74) L 07/27/19 06:10 Free T4 1.01 ng/dl (0.76-1.46) 07/27/19 06:10 Current Medications Generic Name Dose Route Start Last Admin Trade Name Freq PRN Reason Stop Dose Admin Carvedilol 12.5 mg 07/12/19 22:00 07/26/19 21:29 Coreg - PO Not Given BID [facility] IV Flush 10 ml 07/11/19 17:44 07/22/19 06:46 Bryce-Cath Flush IVPUSH 10 ml PRN PRN Administration protocol Piperacillin Sod/Tazobactam 50 mls @ 100 mls/hr 07/23/19 18:00 07/27/19 02:36 Sod 2.25 gm/ Dextrose IVPB 100 mls/hr Q8H-IV [facility] Administration Protocol Sodium Chloride 1,000 mls @ 75 mls/hr 07/27/19 06:17 07/27/19 07:21 Normal Saline - IV Not Given ASDIR [facility] Insulin Aspart 1 vial 07/26/19 11:00 07/27/19 06:50 Novolog Vial Sliding Scale - SQ Not Given TIDAC [facility] Protocol Methimazole 5 mg 07/12/19 22:00 07/26/19 21:29 Tapazole - PO Not Given BID [facility] Ondansetron HCl 8 mg 07/19/19 08:00 07/26/19 04:51 Zofran Injection IVPB 8 mg Q8H PRN Administration NAUSEA AND/OR VOMITING Pantoprazole Sodium 40 mg 07/20/19 16:45 07/26/19 09:27 Protonix Iv IVPB 40 mg DAILY [facility] Administration Tbo-Filgrastim 480 mcg 07/21/19 10:00 07/26/19 10:32 Granix - SQ 480 mcg DAILY [facility] Administration AP: Rectal Adenoca T2DM with hyperglycemia Hyperthyroidism: FT4 1.01 TSH ).16 Pancytopenia LATRICE Ascites HTN Hypokalemia Monitor TFT, no getting Methimazole because she is NPO On Clinimix TFT in AM BGM QACHS Novolog SS coverage Monitor electrolytes and replacement as necessary Electrolyte replacement as necessary
[2019-07-27] MEDS: CARVEDILOL 12.5 MG TABLET (FP) PO SCH ×2 (10:38→21:27)
[2019-07-27] MEDS: METHIMAZOLE 5 MG TABLET (FP) PO SCH ×2 (10:38→21:27)
[2019-07-27] MEDS: PANTOPRAZOLE SODIUM 40 MG VIAL IVPB SCH (10:39)
--- NOTE | 2019-07-27 12:08 | PN ---
Progress Note (short form) - Note Progress Note: Patient seen and examined Continuing on antibiotic therapy Seen by endocrine Sliding scale for hyperglycemia Improvement in WBC count Will discontinue growth factor. Last Vital Signs Temp Pulse Resp BP Pulse Ox 97.9 F 82 21 H 95/46 L 96 07/27/19 10:49 07/27/19 06:00 07/27/19 10:49 07/27/19 10:49 07/27/19 10:46 HEENT: KOFFI, EOM Intact Oropharynx: No thrush, No mucositis, NG drainage Cor: RSR, No murmurs, No gallops Lungs: poor inspiratory effort Abd: ascites LE significant edema Skin: No rashes, Integument intact CBC, BMP 07/26/19 12:00 07/26/19 10:12 Current Medications Generic Name Dose Route Start Last Admin Trade Name Freq PRN Reason Stop Dose Admin Carvedilol 12.5 mg 07/12/19 22:00 07/27/19 10:38 Coreg - PO Not Given BID [facility] IV Flush 10 ml 07/11/19 17:44 07/22/19 06:46 Bryce-Cath Flush IVPUSH 10 ml PRN PRN Administration protocol Piperacillin Sod/Tazobactam 50 mls @ 100 mls/hr 07/23/19 18:00 07/27/19 10:39 Sod 2.25 gm/ Dextrose IVPB 100 mls/hr Q8H-IV [facility] Administration Protocol Sodium Chloride 1,000 mls @ 75 mls/hr 07/27/19 06:17 07/27/19 07:21 Normal Saline - IV Not Given [facility]IR [facility] Insulin Aspart 1 vial 07/26/19 11:00 07/27/19 06:50 Novolog Vial Sliding Scale - SQ Not Given TIDAC [facility] Protocol Methimazole 5 mg 07/12/19 22:00 07/27/19 10:38 Tapazole - PO Not Given BID [facility] Ondansetron HCl 8 mg 07/19/19 08:00 07/26/19 04:51 Zofran Injection IVPB 8 mg Q8H PRN Administration NAUSEA AND/OR VOMITING Pantoprazole Sodium 40 mg 07/20/19 16:45 07/27/19 10:39 Protonix Iv IVPB 40 mg DAILY [facility] Administration Tbo-Filgrastim 480 mcg 07/21/19 10:00 11/21/19 10:32 Granix - SQ 480 mcg DAILY [facility] Administration Impresseion Metastatic colon ca Bowel obstruction Ascites (malignant) Neutropenia- resolved Plan: Anticipate home on Tuesday - all lines/NG need to be discontinued prior to discharge for home hospice. discontinue granix.
[2019-07-27] MEDS: TBO-FILGRASTIM 480 MCG/0.8 ML DISP.SYRIN SQ SCH (14:05)
--- NOTE | 2019-07-27 15:33 | PN ---
Progress Note, Physician History of Present Illness: Pt seen and examined at bedside. She is awake but appears uncomfortable. - Current Medication List Current Medications: Active Medications Carvedilol (Coreg -) 12.5 mg PO BID [facility] Last Admin: 07/27/19 10:38 Dose: Not Given IV Flush (Bryce-Cath Flush) 10 ml IVPUSH PRN PRN PRN Reason: protocol Last Admin: 07/22/19 06:46 Dose: 10 ml Piperacillin Sod/Tazobactam (Sod 2.25 gm/ Dextrose) 50 mls @ 100 mls/hr IVPB Q8H-IV [facility]; Protocol Last Admin: 07/27/19 10:39 Dose: 100 mls/hr Sodium Chloride (Normal Saline -) 1,000 mls @ 75 mls/hr IV ASDIR [facility] Last Admin: 07/27/19 07:21 Dose: Not Given Insulin Aspart (Novolog Vial Sliding Scale -) 1 vial SQ TIDAC [facility]; Protocol Last Admin: 07/27/19 06:50 Dose: Not Given Methimazole (Tapazole -) 5 mg PO BID [facility] Last Admin: 07/27/19 10:38 Dose: Not Given Ondansetron HCl (Zofran Injection) 8 mg IVPB Q8H PRN PRN Reason: NAUSEA AND/OR VOMITING Last Admin: 07/26/19 04:51 Dose: 8 mg Pantoprazole Sodium (Protonix Iv) 40 mg IVPB DAILY [facility] Last Admin: 07/27/19 10:39 Dose: 40 mg - Objective Vital Signs: Vital Signs Temperature 97.7 F 07/27/19 14:19 Pulse Rate 78 07/27/19 14:19 Respiratory Rate 20 07/27/19 14:19 Blood Pressure 89/44 L 07/27/19 14:19 O2 Sat by Pulse Oximetry (%) 96 07/27/19 10:46 Constitutional: Yes: Moderate Distress Eyes: Yes: Conjunctiva Clear HENT: Yes: Atraumatic Cardiovascular: Yes: S1, S2 Respiratory: Yes: On Nasal O2 Gastrointestinal: Yes: Ascites Genitourinary: Yes: Dunne Present Edema: Yes Edema: LLE: 2+, RLE: 2+ Neurological: Yes: Confusion Labs: CBC, BMP 07/26/19 12:00 07/26/19 10:12 INR, PTT INR 1.00 (0.83-1.09) 07/16/19 11:25 Fibrinogen 207.0 mg/dL (238-498) L 07/12/19 06:00 Assessment/Plan Current Medications Generic Name Dose Route Start Last Admin Trade Name Freq PRN Reason Stop Dose Admin Carvedilol 12.5 mg 07/12/19 22:00 07/27/19 10:38 Coreg - PO Not Given BID [facility] IV Flush 10 ml 07/11/19 17:44 07/22/19 06:46 Bryce-Cath Flush IVPUSH 10 ml PRN PRN Administration protocol Piperacillin Sod/Tazobactam 50 mls @ 100 mls/hr 07/23/19 18:00 07/27/19 10:39 Sod 2.25 gm/ Dextrose IVPB 100 mls/hr Q8H-IV [facility] Administration Protocol Sodium Chloride 1,000 mls @ 75 mls/hr 07/27/19 06:17 07/27/19 07:21 Normal Saline - IV Not Given ASDIR [facility] Insulin Aspart 1 vial 07/26/19 11:00 07/27/19 06:50 Novolog Vial Sliding Scale - SQ Not Given TIDAC [facility] Protocol Methimazole 5 mg 07/12/19 22:00 07/27/19 10:38 Tapazole - PO Not Given BID [facility] Ondansetron HCl 8 mg 07/19/19 08:00 07/26/19 04:51 Zofran Injection IVPB 8 mg Q8H PRN Administration NAUSEA AND/OR VOMITING Pantoprazole Sodium 40 mg 07/20/19 16:45 07/27/19 10:39 Protonix Iv IVPB 40 mg DAILY [facility] Administration Impression 1. LATRICE 2. rectal adenoca 3. htn 4. dm 5. ascites 6. uti 7. hypokalemia Plan - pt remains hypotensive - fluids for low bp - check bmp - possible home hospice - prognosis is poor - discuss GOC
[2019-07-27 16:25] LABS: ALBUMIN 1.2 g/dl (3.4-5.0); BILIRUBIN,TOTAL 1.2 mg/dL (0.2-1); BLOOD UREA NITROGEN 75.2 mg/dL (7-18); CALCIUM 8.6 mg/dL (8.5-10.1); CREATININE 1.9 mg/dL (0.55-1.3); POTASSIUM 3.6 mmol/L (3.5-5.1); TOT PROT 4.4 g/dl (6.4-8.2)
[2019-07-28] MEDS ORDERED: DEXTROSE 5%-WATER - 50 ML IVPB ONE ×3 (01:55→17:41)
[2019-07-28] MEDS ORDERED: PIPERACILLIN/TAZOBACTAM 2.25 GM VIAL IVPB ONE ×3 (01:55→17:41)
[2019-07-28] MEDS: PIPERACILLIN/TAZOB 2.25 GM 2.25 GM in DEXTROSE 5%-WATER - 50 ML IVPB SCH ×3 (02:06→17:53)
[2019-07-28] MEDS: INSULIN SLIDING SCALE (NOVOLOG) 1 VIAL SQ SCH ×3 (06:14→17:17)
[2019-07-28] MEDS: SODIUM CHLORIDE 1,000 ML IV SCH ×2 (06:38→15:55)
[2019-07-28] MEDS: CARVEDILOL 12.5 MG TABLET (FP) PO SCH ×2 (09:01→21:04)
[2019-07-28] MEDS: METHIMAZOLE 5 MG TABLET (FP) PO SCH ×2 (09:02→21:04)
[2019-07-28] MEDS ORDERED: MORPHINE SULFATE 2 MG/ML VIAL IVPB PRN (09:23)
[2019-07-28] MEDS: MORPHINE SULFATE 2 MG/ML VIAL IVPB PRN ×2 (11:32→17:52)
[2019-07-28] MEDS: PANTOPRAZOLE SODIUM 40 MG VIAL IVPB SCH (11:36)
[2019-07-28 13:41] LABS: BASO % 0.1 % (0-2.0); EOS % 0.3 % (0-4.5); HEMATOCRIT 26.5 % (32.4-45.2); LYMPH % 4.6 % (8-40); MCH 34.6 pg (25.7-33.7); MCHC 33.8 g/dl (32.0-36.0); MEAN CELL VOLUME 102.5 fl (80-96); MONO % 3.3 % (3.8-10.2); NEUT % 91.7 % (42.8-82.8); PLATELET COUNT 73 K/MM3 (134-434); RBC 2.59 M/mm3 (3.60-5.2); RDW 20.4 % (11.6-15.6); WHITE BLOOD COUNT 11.3 K/mm3 (4.0-10.0)
[2019-07-28 14:12] LABS: ALBUMIN 1.2 g/dl (3.4-5.0); BILIRUBIN,TOTAL 1.1 mg/dL (0.2-1); BLOOD UREA NITROGEN 64.8 mg/dL (7-18); CALCIUM 8.4 mg/dL (8.5-10.1); CREATININE 1.5 mg/dL (0.55-1.3); MAGNESIUM 1.7 mg/dL (1.8-2.4); POTASSIUM 3.5 mmol/L (3.5-5.1); TOT PROT 4.2 g/dl (6.4-8.2)
[2019-07-28 15:00] LABS: ANISOCYTOSIS 2+; MACROCYTOSIS 1+; PLATELET ESTIMATE DECREASED; TARGET CELLS 1+
--- NOTE | 2019-07-28 16:28 | PN ---
Progress Note (short form) - Note Progress Note: 1. LATRICE 2. rectal adenoca 3. htn 4. dm 5. ascites 6. uti 7. hypokalemia Current Medications Carvedilol (Coreg -) 12.5 mg PO BID [facility] Last Admin: 07/28/19 09:01 Dose: Not Given IV Flush (Bryce-Cath Flush) 10 ml IVPUSH PRN PRN PRN Reason: protocol Last Admin: 07/22/19 06:46 Dose: 10 ml Piperacillin Sod/Tazobactam (Sod 2.25 gm/ Dextrose) 50 mls @ 100 mls/hr IVPB Q8H-IV [facility]; Protocol Last Admin: 07/28/19 11:36 Dose: 100 mls/hr Sodium Chloride (Normal Saline -) 1,000 mls @ 75 mls/hr IV ASDIR [facility] Last Admin: 07/28/19 15:55 Dose: 75 mls/hr Insulin Aspart (Novolog Vial Sliding Scale -) 1 vial SQ TIDAC [facility]; Protocol Last Admin: 07/28/19 13:41 Dose: Not Given Methimazole (Tapazole -) 5 mg PO BID [facility] Last Admin: 07/28/19 09:02 Dose: Not Given Morphine Sulfate (Morphine Sulfate) 2 mg IVPB Q4H PRN PRN Reason: PAIN LEVEL 4 - 6 Last Admin: 07/28/19 11:32 Dose: 2 mg Ondansetron HCl (Zofran Injection) 8 mg IVPB Q8H PRN PRN Reason: NAUSEA AND/OR VOMITING Last Admin: 07/26/19 04:51 Dose: 8 mg Pantoprazole Sodium (Protonix Iv) 40 mg IVPB DAILY [facility] Last Admin: 07/28/19 11:36 Dose: 40 mg Last Vital Signs Temp Pulse Resp BP Pulse Ox 97.8 F 77 20 109/51 L 95 07/28/19 14:38 07/28/19 14:38 07/28/19 14:38 07/28/19 14:38 07/28/19 09:00 CBC, BMP 07/28/19 12:50 07/28/19 12:50 Hypernatremia LATRICE metastatic rectal ca w mets Plan - pt remains hypotensive - fluids for low bp - check bmp - possible home hospice - prognosis is poor - discuss GOC
--- NOTE | 2019-07-28 20:30 | PN ---
Progress Note (short form) - Note Progress Note: Patient seen in follow up. No significant events overnight. Indicates she is not in pain. Current Medications Carvedilol (Coreg -) 12.5 mg PO BID [facility] Last Admin: 07/28/19 09:01 Dose: Not Given IV Flush (Bryce-Cath Flush) 10 ml IVPUSH PRN PRN PRN Reason: protocol Last Admin: 07/22/19 06:46 Dose: 10 ml Piperacillin Sod/Tazobactam (Sod 2.25 gm/ Dextrose) 50 mls @ 100 mls/hr IVPB Q8H-IV [facility]; Protocol Last Admin: 07/28/19 17:53 Dose: 100 mls/hr Sodium Chloride (Normal Saline -) 1,000 mls @ 75 mls/hr IV ASDIR [facility] Last Admin: 07/28/19 15:55 Dose: 75 mls/hr Insulin Aspart (Novolog Vial Sliding Scale -) 1 vial SQ TIDAC [facility]; Protocol Last Admin: 07/28/19 17:17 Dose: Not Given Methimazole (Tapazole -) 5 mg PO BID [facility] Last Admin: 07/28/19 09:02 Dose: Not Given Morphine Sulfate (Morphine Sulfate) 2 mg IVPB Q4H PRN PRN Reason: PAIN LEVEL 4 - 6 Last Admin: 07/28/19 17:52 Dose: 2 mg Ondansetron HCl (Zofran Injection) 8 mg IVPB Q8H PRN PRN Reason: NAUSEA AND/OR VOMITING Last Admin: 07/26/19 04:51 Dose: 8 mg Pantoprazole Sodium (Protonix Iv) 40 mg IVPB DAILY [facility] Last Admin: 07/28/19 11:36 Dose: 40 mg On Examination: Last Vital Signs Temp Pulse Resp BP Pulse Ox 97.8 F 76 19 108/51 L 95 07/28/19 18:20 07/28/19 18:20 07/28/19 18:20 07/28/19 18:20 07/28/19 09:00 General: Supine in in bed, cachexic. NG tube. Extremities: No pallor or icterus. CVS: S1, S2, regular, no gallop or murmur. Chest: good air entry bilaterally, clear Abdomen:Distended, non-tender, no palpable organomegaly. Neuro: Drowsy, responsive. Labs: CBC, BMP 07/28/19 12:50 07/28/19 12:50 Assessment. Metastatic colon cancer, with rapidly accumulating malignant ascited, with recent decision to stop active therapy - palliative measures only. Morphine PRN, ad libitum No further lab draws. Will be discharged under hospice care.
[2019-07-29] MEDS ORDERED: DEXTROSE 5%-WATER - 50 ML IVPB ONE ×3 (00:07→17:18)
[2019-07-29] MEDS ORDERED: PIPERACILLIN/TAZOBACTAM 2.25 GM VIAL IVPB ONE ×3 (00:07→17:17)
[2019-07-29] MEDS: PIPERACILLIN/TAZOB 2.25 GM 2.25 GM in DEXTROSE 5%-WATER - 50 ML IVPB SCH ×3 (01:05→17:38)
[2019-07-29] MEDS: SODIUM CHLORIDE 1,000 ML IV SCH ×2 (05:42→12:14)
[2019-07-29] MEDS: INSULIN SLIDING SCALE (NOVOLOG) 1 VIAL SQ SCH ×3 (06:04→17:39)
[2019-07-29] MEDS: CARVEDILOL 12.5 MG TABLET (FP) PO SCH ×2 (11:36→21:18)
[2019-07-29] MEDS: METHIMAZOLE 5 MG TABLET (FP) PO SCH ×2 (11:36→21:18)
[2019-07-29] MEDS: MORPHINE SULFATE 2 MG/ML VIAL IVPB PRN ×2 (12:11→17:37)
[2019-07-29] MEDS: PANTOPRAZOLE SODIUM 40 MG VIAL IVPB SCH (12:11)
--- NOTE | 2019-07-29 14:23 | PN ---
Progress Note (short form) - Note Progress Note: Patient seen in follow up. No significant events overnight. Indicates she is comfortable and not in pain. Current Medications Current Medications Carvedilol (Coreg -) 12.5 mg PO BID [facility] Last Admin: 07/29/19 11:36 Dose: Not Given IV Flush (Bryce-Cath Flush) 10 ml IVPUSH PRN PRN PRN Reason: protocol Last Admin: 07/22/19 06:46 Dose: 10 ml Piperacillin Sod/Tazobactam (Sod 2.25 gm/ Dextrose) 50 mls @ 100 mls/hr IVPB Q8H-IV [facility]; Protocol Last Admin: 07/29/19 12:11 Dose: 100 mls/hr Sodium Chloride (Normal Saline -) 1,000 mls @ 75 mls/hr IV ASDIR [facility] Last Admin: 07/29/19 12:14 Dose: 75 mls/hr Insulin Aspart (Novolog Vial Sliding Scale -) 1 vial SQ TIDAC [facility]; Protocol Last Admin: 07/29/19 12:45 Dose: Not Given Methimazole (Tapazole -) 5 mg PO BID [facility] Last Admin: 07/29/19 11:36 Dose: Not Given Morphine Sulfate (Morphine Sulfate) 2 mg IVPB Q4H PRN PRN Reason: PAIN LEVEL 4 - 6 Last Admin: 07/29/19 12:11 Dose: 2 mg Ondansetron HCl (Zofran Injection) 8 mg IVPB Q8H PRN PRN Reason: NAUSEA AND/OR VOMITING Last Admin: 07/26/19 04:51 Dose: 8 mg Pantoprazole Sodium (Protonix Iv) 40 mg IVPB DAILY [facility] Last Admin: 07/29/19 12:11 Dose: 40 mg On Examination: Last Vital Signs Temp Pulse Resp BP Pulse Ox 97.7 F 72 18 104/59 L 95 07/28/19 22:00 07/28/19 22:00 07/29/19 08:57 07/28/19 22:00 07/29/19 08:57 General: Supine in in bed, cachexic. NG tube. Extremities: No pallor or icterus. CVS: S1, S2, regular, no gallop or murmur. Chest: good air entry bilaterally, clear Abdomen:Distended, non-tender, no palpable organomegaly. Neuro: Drowsy, responsive. Assessment. Metastatic colon cancer, with rapidly accumulating malignant ascited, with recent decision to stop active therapy - palliative measures only. Morphine PRN, ad libitum No further lab draws. Will be discharged under hospice care.
--- NOTE | 2019-07-29 22:24 | PN ---
Progress Note (short form) - Note Progress Note: 1. LATRICE 2. rectal adenoca 3. htn 4. dm 5. ascites 6. uti 7. hypokalemia Current Medications Carvedilol (Coreg -) 12.5 mg PO BID [facility] Last Admin: 07/29/19 21:18 Dose: Not Given IV Flush (Bryce-Cath Flush) 10 ml IVPUSH PRN PRN PRN Reason: protocol Last Admin: 07/22/19 06:46 Dose: 10 ml Piperacillin Sod/Tazobactam (Sod 2.25 gm/ Dextrose) 50 mls @ 100 mls/hr IVPB Q8H-IV [facility]; Protocol Last Admin: 07/29/19 17:38 Dose: 100 mls/hr Sodium Chloride (Normal Saline -) 1,000 mls @ 75 mls/hr IV ASDIR [facility] Last Admin: 07/29/19 12:14 Dose: 75 mls/hr Insulin Aspart (Novolog Vial Sliding Scale -) 1 vial SQ TIDAC [facility]; Protocol Last Admin: 07/29/19 17:39 Dose: Not Given Methimazole (Tapazole -) 5 mg PO BID [facility] Last Admin: 07/29/19 21:18 Dose: Not Given Morphine Sulfate (Morphine Sulfate) 2 mg IVPB Q4H PRN PRN Reason: PAIN LEVEL 4 - 6 Last Admin: 07/29/19 17:37 Dose: 2 mg Ondansetron HCl (Zofran Injection) 8 mg IVPB Q8H PRN PRN Reason: NAUSEA AND/OR VOMITING Last Admin: 07/26/19 04:51 Dose: 8 mg Pantoprazole Sodium (Protonix Iv) 40 mg IVPB DAILY [facility] Last Admin: 07/29/19 12:11 Dose: 40 mg Last Vital Signs Temp Pulse Resp BP Pulse Ox 98 F 80 18 101/85 95 07/29/19 10:00 07/29/19 10:00 07/29/19 10:00 07/29/19 10:00 07/29/19 08:57 lungs clear heart reg abd soft ext min edema CBC, BMP 07/28/19 12:50 07/28/19 12:50 Hypernatremia LATRICE metastatic rectal ca w mets Plan- f/u labs
[2019-07-30] MEDS ORDERED: PIPERACILLIN/TAZOBACTAM 2.25 GM VIAL IVPB ONE ×3 (00:52→16:47)
[2019-07-30] MEDS ORDERED: DEXTROSE 5%-WATER - 50 ML IVPB ONE ×3 (00:52→16:47)
[2019-07-30] MEDS: PIPERACILLIN/TAZOB 2.25 GM 2.25 GM in DEXTROSE 5%-WATER - 50 ML IVPB SCH ×2 (01:26→10:16)
[2019-07-30] MEDS: MORPHINE SULFATE 2 MG/ML VIAL IVPB PRN ×3 (05:20→17:38)
[2019-07-30] MEDS: INSULIN SLIDING SCALE (NOVOLOG) 1 VIAL SQ SCH ×3 (06:00→17:48)
[2019-07-30 08:55] LABS: ALBUMIN 1.2 g/dl (3.4-5.0); BILIRUBIN,TOTAL 1.1 mg/dL (0.2-1); BLOOD UREA NITROGEN 49.1 mg/dL (7-18); CALCIUM 8.5 mg/dL (8.5-10.1); POTASSIUM 3.9 mmol/L (3.5-5.1); TOT PROT 4.3 g/dl (6.4-8.2)
[2019-07-30] MEDS ORDERED: DEXTROSE 5%-0.45% SALINE 1,000 ML IV SCH (10:00)
[2019-07-30] MEDS: SODIUM CHLORIDE 1,000 ML IV SCH (10:16)
[2019-07-30] MEDS: PANTOPRAZOLE SODIUM 40 MG VIAL IVPB SCH (10:16)
[2019-07-30] MEDS: CARVEDILOL 12.5 MG TABLET (FP) PO SCH ×2 (10:35→22:02)
[2019-07-30] MEDS: METHIMAZOLE 5 MG TABLET (FP) PO SCH ×2 (10:35→22:02)
--- NOTE | 2019-07-30 12:05 | PN ---
Progress Note (short form) - Note Progress Note: Awake responsive Denies any complaints Vital Signs Period Temp Pulse Resp BP Sys/Dennison Pulse Ox Last 24 Hr 98.1 F 88 18 100/79 95 PE: Awake, Neck: Supple HEENT: +NGtube Lungs: CTA CVS: s1S2 Abd: +ascites EXt: +edema CMP Sodium 150 mmol/L (136-145) H 07/30/19 06:00 Potassium 3.9 mmol/L (3.5-5.1) 07/30/19 06:00 Chloride 122 mmol/L (98-107) H 07/30/19 06:00 Carbon Dioxide 20 mmol/L (21-32) L 07/30/19 06:00 Anion Gap 8 MMOL/L (8-16) 07/30/19 06:00 BUN 49.1 mg/dL (7-18) H 07/30/19 06:00 Creatinine 1.0 mg/dL (0.55-1.3) 07/30/19 06:00 Est GFR (CKD-EPI)AfAm 65.18 07/30/19 06:00 Est GFR (CKD-EPI)NonAf 56.24 07/30/19 06:00 POC Glucometer 147 UNITS (80-120) 07/30/19 05:28 Random Glucose 137 mg/dL (74-106) H 07/30/19 06:00 Lactic Acid 1.5 mmol/L (0.4-2.0) 07/22/19 06:20 Calcium 8.5 mg/dL (8.5-10.1) 07/30/19 06:00 Magnesium 1.7 mg/dL (1.8-2.4) L 07/28/19 12:50 Total Bilirubin 1.1 mg/dL (0.2-1) H 07/30/19 06:00 Direct Bilirubin 0.7 mg/dL (0.0-0.2) H 07/11/19 10:39 AST 15 U/L (15-37) 07/30/19 06:00 ALT 13 U/L (13-61) 07/30/19 06:00 Alkaline Phosphatase 99 U/L (45-117) 07/30/19 06:00 Total Protein 4.3 g/dl (6.4-8.2) L 07/30/19 06:00 Albumin 1.2 g/dl (3.4-5.0) L 07/30/19 06:00 TSH 0.16 uIU/ml (0.358-3.74) L 07/27/19 06:10 Free T4 1.01 ng/dl (0.76-1.46) 07/27/19 06:10 Free T3 1.0 pg/ml (2.0-4.4) L 07/27/19 06:10 Current Medications Generic Name Dose Route Start Last Admin Trade Name Freq PRN Reason Stop Dose Admin Carvedilol 12.5 mg 07/12/19 22:00 07/30/19 10:35 Coreg - PO Not Given BID [facility] IV Flush 10 ml 07/11/19 17:44 07/22/19 06:46 Bryce-Cath Flush IVPUSH 10 ml PRN PRN Administration protocol Piperacillin Sod/Tazobactam 50 mls @ 100 mls/hr 07/23/19 18:00 07/30/19 10:16 Sod 2.25 gm/ Dextrose IVPB 100 mls/hr Q8H-IV [facility] Administration Protocol Dextrose/Sodium Chloride 1,000 mls @ 75 mls/hr 07/30/19 10:00 07/30/19 10:34 D5-1/2ns - IV 75 mls/hr ASDIR [facility] Administration Insulin Aspart 1 vial 07/26/19 11:00 07/30/19 06:00 Novolog Vial Sliding Scale - SQ Not Given TIDAC [facility] Protocol Methimazole 5 mg 07/12/19 22:00 07/30/19 10:35 Tapazole - PO Not Given BID [facility] Morphine Sulfate 2 mg 07/28/19 11:24 07/30/19 10:14 Morphine Sulfate IVPB 2 mg Q4H PRN Administration PAIN LEVEL 4 - 6 Ondansetron HCl 8 mg 07/19/19 08:00 07/26/19 04:51 Zofran Injection IVPB 8 mg Q8H PRN Administration NAUSEA AND/OR VOMITING Pantoprazole Sodium 40 mg 07/20/19 16:45 07/30/19 10:16 Protonix Iv IVPB 40 mg DAILY [facility] Administration AP: Rectal Adenoca T2DM with hyperglycemia: Blood sugar acceptable now Hyperthyroidism: FT4 1.01 TSH ).16 Pancytopenia LATRICE Ascites HTN Hypokalemia ON D5 2ns Monitor TFT, no getting Methimazole because she is NPO BGM QACHS Novolog SS coverage Monitor electrolytes and replacement as necessary
--- NOTE | 2019-07-30 14:31 | PN ---
Progress Note, Physician History of Present Illness: Pt seen and examined at bedside. SHe is awake however looks uncomfortable. - Current Medication List Current Medications: Active Medications Carvedilol (Coreg -) 12.5 mg PO BID [facility] Last Admin: 07/30/19 10:35 Dose: Not Given IV Flush (Bryce-Cath Flush) 10 ml IVPUSH PRN PRN PRN Reason: protocol Last Admin: 07/22/19 06:46 Dose: 10 ml Piperacillin Sod/Tazobactam (Sod 2.25 gm/ Dextrose) 50 mls @ 100 mls/hr IVPB Q8H-IV [facility]; Protocol Last Admin: 07/30/19 10:16 Dose: 100 mls/hr Dextrose/Sodium Chloride (D5-1/2ns -) 1,000 mls @ 75 mls/hr IV ASDIR [facility] Last Admin: 07/30/19 10:34 Dose: 75 mls/hr Insulin Aspart (Novolog Vial Sliding Scale -) 1 vial SQ TIDAC [facility]; Protocol Last Admin: 07/30/19 06:00 Dose: Not Given Methimazole (Tapazole -) 5 mg PO BID [facility] Last Admin: 07/30/19 10:35 Dose: Not Given Morphine Sulfate (Morphine Sulfate) 2 mg IVPB Q4H PRN PRN Reason: PAIN LEVEL 4 - 6 Last Admin: 07/30/19 10:14 Dose: 2 mg Ondansetron HCl (Zofran Injection) 8 mg IVPB Q8H PRN PRN Reason: NAUSEA AND/OR VOMITING Last Admin: 07/26/19 04:51 Dose: 8 mg Pantoprazole Sodium (Protonix Iv) 40 mg IVPB DAILY [facility] Last Admin: 07/30/19 10:16 Dose: 40 mg - Objective Vital Signs: Vital Signs Temperature 98.1 F 07/29/19 22:00 Pulse Rate 88 07/29/19 22:00 Respiratory Rate 18 07/29/19 22:00 Blood Pressure 100/79 07/29/19 22:00 O2 Sat by Pulse Oximetry (%) 95 07/29/19 21:00 Constitutional: Yes: Calm Eyes: Yes: Conjunctiva Clear HENT: Yes: Atraumatic Cardiovascular: Yes: S1, S2 Respiratory: Yes: On Nasal O2 Gastrointestinal: Yes: Ascites Genitourinary: Yes: Dunne Present Edema: Yes Edema: LLE: 1+, RLE: 1+ Neurological: Yes: Confusion Labs: CBC, BMP 07/28/19 12:50 07/30/19 06:00 INR, PTT INR 1.00 (0.83-1.09) 07/16/19 11:25 Fibrinogen 207.0 mg/dL (238-498) L 07/12/19 06:00 Assessment/Plan Current Medications Generic Name Dose Route Start Last Admin Trade Name Freq PRN Reason Stop Dose Admin Carvedilol 12.5 mg 07/12/19 22:00 07/30/19 10:35 Coreg - PO Not Given BID [facility] IV Flush 10 ml 07/11/19 17:44 07/22/19 06:46 Bryce-Cath Flush IVPUSH 10 ml PRN PRN Administration protocol Piperacillin Sod/Tazobactam 50 mls @ 100 mls/hr 07/23/19 18:00 07/30/19 10:16 Sod 2.25 gm/ Dextrose IVPB 100 mls/hr Q8H-IV [facility] Administration Protocol Dextrose/Sodium Chloride 1,000 mls @ 75 mls/hr 07/30/19 10:00 07/30/19 10:34 D5-1/2ns - IV 75 mls/hr ASDIR [facility] Administration Insulin Aspart 1 vial 07/26/19 11:00 07/30/19 06:00 Novolog Vial Sliding Scale - SQ Not Given TIDAC [facility] Protocol Methimazole 5 mg 07/12/19 22:00 07/30/19 10:35 Tapazole - PO Not Given BID [facility] Morphine Sulfate 2 mg 07/28/19 11:24 07/30/19 10:14 Morphine Sulfate IVPB 2 mg Q4H PRN Administration PAIN LEVEL 4 - 6 Ondansetron HCl 8 mg 07/19/19 08:00 07/26/19 04:51 Zofran Injection IVPB 8 mg Q8H PRN Administration NAUSEA AND/OR VOMITING Pantoprazole Sodium 40 mg 07/20/19 16:45 07/30/19 10:16 Protonix Iv IVPB 40 mg DAILY [facility] Administration Impression 1. LATRICE 2. rectal adenoca 3. htn 4. dm 5. ascites 6. uti 7. hypokalemia Plan - sodium is rising - change fluids to d5w with potassium - repeat labs in am - possible home hospice - prognosis is poor - discuss GOC
[2019-07-30] MEDS: POTASSIUM CHLORIDE 10 MEQ in DEXTROSE 5%-WATER - 1,000 ML IVPB SCH (15:37)
--- NOTE | 2019-07-30 21:10 | PN ---
Progress Note (short form) - Note Progress Note: Patient seen and examined weak, fatigued Last Vital Signs Temp Pulse Resp BP Pulse Ox 97.4 F L 79 20 97/48 L 95 07/30/19 18:08 07/30/19 18:08 07/30/19 18:08 07/30/19 18:08 07/30/19 09:00 Cor: RSR, No murmurs, No gallops Lungs: Clear to P&A Abd: ascites+ Ext:2+ edema Labs/MEds reviewed A/P 74 y/o patient with hyperthyroidism, HTN, presented with rectal bleeding earlier this year. Noted to have a rectal mass on colonocscopy and biopsy was consistent with moderately differentiated adenoca. Also noted to have widely metastatic disease with lung nodules, liver metastases, retroperitoneal adenopathy and adrenal mets, Microsatellite stable Started XELOX in 01/21 and had very good response on imaging studies done 05/15/19 But developed ascites in June Had paracenetesis x2 . Fluid is negative for malignant cells but rapidly reaccumulating Switched to Irinotecan on 07/11 s/p peritoneal pig tail catheter malignant ascites, large bowel obstruction, Rediscussed with patient and her For hospice care at home. discussed with hospice nurse
[2019-07-31] MEDS: POTASSIUM CHLORIDE 10 MEQ in DEXTROSE 5%-WATER - 1,000 ML IVPB SCH ×2 (03:08→17:59)
[2019-07-31] MEDS: MORPHINE SULFATE 2 MG/ML VIAL IVPB PRN ×2 (03:08→11:01)
[2019-07-31] MEDS: ONDANSETRON 4 MG/2 ML VIAL IVPB PRN (03:08)
[2019-07-31] MEDS: INSULIN SLIDING SCALE (NOVOLOG) 1 VIAL SQ SCH ×3 (07:22→18:00)
[2019-07-31] MEDS: METHIMAZOLE 5 MG TABLET (FP) PO SCH ×2 (10:58→22:50)
[2019-07-31] MEDS: CARVEDILOL 12.5 MG TABLET (FP) PO SCH ×2 (10:58→22:51)
[2019-07-31] MEDS: PANTOPRAZOLE SODIUM 40 MG VIAL IVPB SCH (11:02)
--- NOTE | 2019-07-31 15:58 | PN ---
Physical Exam: Heme/Onc Service SUBJECTIVE: Patient seen and examined at bedside. Pt poorly responsive to questions. Mumbles answers back. Informed by nursing this afternoon that pt pulled NGT. OBJECTIVE: Vital Signs Period Temp Pulse Resp BP Sys/Dennison Pulse Ox Last 24 Hr 97.4 F-98.0 F 79-88 18-20 97-112/43-68 96-96 Gen: Gaunt, emaciated, mild resp distress HEENT: temporal wasting, dry membranes Neck: no jvd Cardio: mild tachycardia, reg rhythm, no mrg, tapping PMI nondisplaced Pulm: limited exam, tachypnic, adequate air entry laterally Abd: soft, nontender, mildly distended Laboratory Results - last 24 hr 07/30/19 07/31/19 17:46 07:20 POC Glucometer 199 268 Active Medications Generic Name Dose Route Start Last Admin Trade Name Freq PRN Reason Stop Dose Admin Carvedilol 12.5 mg 07/12/19 22:00 07/31/19 10:58 Coreg - PO Not Given BID [facility] IV Flush 10 ml 07/11/19 17:44 07/22/19 06:46 Bryce-Cath Flush IVPUSH 10 ml PRN PRN Administration protocol Potassium Chloride 10 meq/ 1,005 mls @ 83 mls/hr 07/30/19 15:30 07/31/19 03: 08 Dextrose IVPB 83 mls/hr Q12H [facility] Administration Insulin Aspart 1 vial 07/26/19 11:00 07/31/19 12:04 Novolog Vial Sliding Scale - SQ Not Given TIDAC [facility] Protocol Methimazole 5 mg 07/12/19 22:00 07/31/19 10:58 Tapazole - PO Not Given BID [facility] Morphine Sulfate 2 mg 07/31/19 15:28 Morphine Sulfate IVPUSH Q4H PRN PAIN LEVEL 1-5 Ondansetron HCl 8 mg 07/19/19 08:00 07/31/19 03:08 Zofran Injection IVPB 8 mg Q8H PRN Administration NAUSEA AND/OR VOMITING Pantoprazole Sodium 40 mg 07/20/19 16:45 07/31/19 11:02 Protonix Iv IVPB 40 mg DAILY [facility] Administration ASSESSMENT/PLAN: 74 y/o patient with hyperthyroidism, HTN, presented with rectal bleeding earlier this year. Noted to have a rectal mass on colonocscopy and biopsy was consistent with moderately differentiated adenoCA. Also noted to have widely metastatic disease with lung nodules, liver metastases, retroperitoneal adenopathy and adrenal mets. Admitted to the heme/onc service. Per records, pt is to go for hospice. metastatic rectal CA -Microsatellite stable - XELOX in 01/21 and had very good response on imaging studies done 05/15/19 -Switched to Irinotecan on 07/11 Ascites -since June - s/p paracenetesis x2 . Fluid is negative for malignant cells but rapidly reaccumulating -s/p peritoneal pig tail catheter Rediscussed with attending, patient, and her For hospice care at home. discussed with hospice nurse by attending Visit type - Emergency Visit Emergency Visit: No - New Patient This patient is new to me today: Yes Date on this admission: 08/01/19 - Critical Care Critical Care patient: No ATTENDING PHYSICIAN STATEMENT I saw and evaluated the patient. I reviewed the resident's note and discussed the case with the resident. I agree with the resident's findings and plan as documented. SUBJECTIVE: OBJECTIVE: ASSESSMENT AND PLAN:
[2019-07-31] MEDS: MORPHINE SULFATE 2 MG/ML VIAL IVPUSH PRN ×2 (16:33→22:48)
[2019-07-31] MEDS ORDERED: PT OWN MED DRAWER 7, Y5N ONE (17:25)
--- NOTE | 2019-07-31 18:37 | PN ---
Progress Note, Physician History of Present Illness: Pt seen and examined at bedside. She is awake however uncomfortable. - Current Medication List Current Medications: Active Medications Carvedilol (Coreg -) 12.5 mg PO BID [facility] Last Admin: 07/31/19 10:58 Dose: Not Given IV Flush (Bryce-Cath Flush) 10 ml IVPUSH PRN PRN PRN Reason: protocol Last Admin: 07/22/19 06:46 Dose: 10 ml Potassium Chloride 10 meq/ (Dextrose) 1,005 mls @ 83 mls/hr IVPB Q12H [facility] Last Admin: 07/31/19 17:59 Dose: 83 mls/hr Insulin Aspart (Novolog Vial Sliding Scale -) 1 vial SQ TIDAC [facility]; Protocol Last Admin: 07/31/19 18:00 Dose: Not Given Methimazole (Tapazole -) 5 mg PO BID [facility] Last Admin: 07/31/19 10:58 Dose: Not Given Morphine Sulfate (Morphine Sulfate) 2 mg IVPUSH Q4H PRN PRN Reason: PAIN LEVEL 1-5 Last Admin: 07/31/19 16:33 Dose: 2 mg Ondansetron HCl (Zofran Injection) 8 mg IVPB Q8H PRN PRN Reason: NAUSEA AND/OR VOMITING Last Admin: 07/31/19 03:08 Dose: 8 mg Pantoprazole Sodium (Protonix Iv) 40 mg IVPB DAILY [facility] Last Admin: 07/31/19 11:02 Dose: 40 mg - Objective Vital Signs: Vital Signs Temperature 97.9 F 07/31/19 14:27 Pulse Rate 81 07/31/19 14:27 Respiratory Rate 20 07/31/19 14:27 Blood Pressure 112/48 L 07/31/19 14:27 O2 Sat by Pulse Oximetry (%) 96 07/31/19 09:00 Constitutional: Yes: Calm Eyes: Yes: Conjunctiva Clear HENT: Yes: Atraumatic Neck: Yes: Supple Cardiovascular: Yes: S1, S2 Respiratory: Yes: On Nasal O2 Gastrointestinal: Yes: Ascites Genitourinary: Yes: Dunne Present Musculoskeletal: Yes: Muscle Weakness Edema: Yes Edema: LLE: 1+, RLE: 1+ Neurological: Yes: Confusion Labs: CBC, BMP 07/28/19 12:50 07/30/19 06:00 INR, PTT INR 1.00 (0.83-1.09) 07/16/19 11:25 Fibrinogen 207.0 mg/dL (238-498) L 07/12/19 06:00 Assessment/Plan Current Medications Generic Name Dose Route Start Last Admin Trade Name Freq PRN Reason Stop Dose Admin Carvedilol 12.5 mg 07/12/19 22:00 07/31/19 10:58 Coreg - PO Not Given BID CHITRA IV Flush 10 ml 07/11/19 17:44 07/22/19 06:46 Bryce-Cath Flush IVPUSH 10 ml PRN PRN Administration protocol Potassium Chloride 10 meq/ 1,005 mls @ 83 mls/hr 07/30/19 15:30 07/31/19 17: 59 Dextrose IVPB 83 mls/hr Q12H CHITRA Administration Insulin Aspart 1 vial 07/26/19 11:00 07/31/19 18:00 Novolog Vial Sliding Scale - SQ Not Given [facility] Protocol Methimazole 5 mg 07/12/19 22:00 07/31/19 10:58 Tapazole - PO Not Given [facility] Morphine Sulfate 2 mg 07/31/19 15:28 07/31/19 16:33 Morphine Sulfate IVPUSH 2 mg Q4H PRN Administration PAIN LEVEL 1-5 Ondansetron HCl 8 mg 07/19/19 08:00 07/31/19 03:08 Zofran Injection IVPB 8 mg Q8H PRN Administration NAUSEA AND/OR VOMITING Pantoprazole Sodium 40 mg 07/20/19 16:45 07/31/19 11:02 Protonix Iv IVPB 40 mg DAILY CHITRA Administration Impression 1. LATRICE 2. rectal adenoca 3. htn 4. dm 5. ascites 6. uti 7. hypokalemia Plan - check bmp - cont fluids - will need to discuss GOC - repeat labs in am - possible home hospice - prognosis is poor
--- NOTE | 2019-07-31 20:02 | PN ---
Progress Note (short form) - Note Progress Note: Patient seen and examined Poorly responsive Pulled out NG tube Last Vital Signs Temp Pulse Resp BP Pulse Ox 98.1 F 81 20 96/46 L 96 07/31/19 18:00 07/31/19 14:27 07/31/19 18:00 07/31/19 18:00 07/31/19 09:00 Abdomen - distended CBC, BMP 07/28/19 12:50 07/30/19 06:00 Plan: Home with hospice
[2019-08-01] MEDS: MORPHINE SULFATE 2 MG/ML VIAL IVPUSH PRN ×3 (02:07→10:35)
[2019-08-01] MEDS ORDERED: PT OWN MED DRAWER 7, Y5N ONE (04:34)
[2019-08-01] MEDS: POTASSIUM CHLORIDE 10 MEQ in DEXTROSE 5%-WATER - 1,000 ML IVPB SCH (04:37)
[2019-08-01] MEDS: INSULIN SLIDING SCALE (NOVOLOG) 1 VIAL SQ SCH (06:03)
[2019-08-01] MEDS: PORTA CATH FLUSH 10 ML IVPUSH PRN (06:22)
[2019-08-01 08:53] LABS: ALBUMIN 1.1 g/dl (3.4-5.0); BILIRUBIN,TOTAL 0.8 mg/dL (0.2-1); CALCIUM 8.6 mg/dL (8.5-10.1); CREATININE 0.9 mg/dL (0.55-1.3); POTASSIUM 4.9 mmol/L (3.5-5.1); TOT PROT 4.1 g/dl (6.4-8.2)
--- NOTE | 2019-08-01 09:12 | PN ---
Progress Note (short form) - Note Progress Note: Awake responsive In NAD, Vital Signs Period Temp Pulse Resp BP Sys/Dennison Pulse Ox Last 24 Hr 97.4 F-98.3 F 76-83 18-22 92-112/45-68 96 PE: Awake, Neck: Supple HEENT: +NGtube Lungs: CTA CVS: s1S2 Abd: +ascites EXt: +edema CMP Sodium 146 mmol/L (136-145) H 08/01/19 06:20 Potassium 4.9 mmol/L (3.5-5.1) 08/01/19 06:20 Chloride 118 mmol/L (98-107) H 08/01/19 06:20 Carbon Dioxide 24 mmol/L (21-32) 08/01/19 06:20 Anion Gap 3 MMOL/L (8-16) L 08/01/19 06:20 BUN 30.0 mg/dL (7-18) H 08/01/19 06:20 Creatinine 0.9 mg/dL (0.55-1.3) 08/01/19 06:20 Est GFR (CKD-EPI)AfAm 74.04 08/01/19 06:20 Est GFR (CKD-EPI)NonAf 63.88 08/01/19 06:20 POC Glucometer 291 UNITS (80-120) 08/01/19 06:21 Random Glucose 315 mg/dL (74-106) H 08/01/19 06:20 Lactic Acid 1.5 mmol/L (0.4-2.0) 07/22/19 06:20 Calcium 8.6 mg/dL (8.5-10.1) 08/01/19 06:20 Magnesium 1.7 mg/dL (1.8-2.4) L 07/28/19 12:50 Total Bilirubin 0.8 mg/dL (0.2-1) 08/01/19 06:20 Direct Bilirubin 0.7 mg/dL (0.0-0.2) H 07/11/19 10:39 AST 14 U/L (15-37) L 08/01/19 06:20 ALT 12 U/L (13-61) L 08/01/19 06:20 Alkaline Phosphatase 98 U/L (45-117) 08/01/19 06:20 Total Protein 4.1 g/dl (6.4-8.2) L 08/01/19 06:20 Albumin 1.1 g/dl (3.4-5.0) L 08/01/19 06:20 TSH 0.16 uIU/ml (0.358-3.74) L 07/27/19 06:10 Free T4 1.01 ng/dl (0.76-1.46) 07/27/19 06:10 Free T3 1.0 pg/ml (2.0-4.4) L 07/27/19 06:10 Current Medications Generic Name Dose Route Start Last Admin Trade Name Freq PRN Reason Stop Dose Admin Carvedilol 12.5 mg 07/12/19 22:00 07/31/19 22:51 Coreg - PO Not Given BID CHITRA IV Flush 10 ml 07/11/19 17:44 08/01/19 06:22 Bryce-Cath Flush IVPUSH 10 ml PRN PRN Administration protocol Potassium Chloride 10 meq/ 1,005 mls @ 83 mls/hr 07/30/19 15:30 08/01/19 04: 37 Dextrose IVPB 83 mls/hr Q12H CHITRA Administration Insulin Aspart 1 vial 07/26/19 11:00 08/01/19 06:03 Novolog Vial Sliding Scale - SQ Not Given TIDAC [facility] [place] Protocol Methimazole 5 mg 07/12/19 22:00 07/31/19 22:50 Tapazole - PO Not Given BID CHITRA Morphine Sulfate 2 mg 07/31/19 15:28 08/01/19 06:04 Morphine Sulfate IVPUSH 2 mg Q4H PRN Administration PAIN LEVEL 1-5 Ondansetron HCl 8 mg 07/19/19 08:00 07/31/19 03:08 Zofran Injection IVPB 8 mg Q8H PRN Administration NAUSEA AND/OR VOMITING Pantoprazole Sodium 40 mg 07/20/19 16:45 07/31/19 11:02 Protonix Iv IVPB 40 mg DAILY CHITRA Administration AP: Rectal Adenoca T2DM with hyperglycemia: Hyperthyroidism: FT4 1.01 TSH ).16 Pancytopenia LATRICE Ascites HTN Hypokalemia ON D5 1/2ns Monitor TFT, not getting Methimazole because she is NPO BGM QACHS Novolog SS coverage Monitor electrolytes and replacement as necessary
--- NOTE | 2019-08-01 10:55 | DS ---
Physical Exam: SUBJECTIVE: Patient seen and examined at bedside. Pt does not verbalize clearly. OBJECTIVE: Vital Signs Period Temp Pulse Resp BP Sys/Dennison Pulse Ox Last 24 Hr 97.4 F-98.3 F 76-83 20-22 92-112/45-56 96 PHYSICAL EXAM Gen: Gaunt, emaciated, mild resp distress HEENT: temporal wasting, dry membranes Neck: no jvd Cardio: mild tachycardia, reg rhythm, no mrg, tapping PMI nondisplaced Pulm: limited exam, tachypnic, adequate air entry laterally Abd: soft, nontender, mildly distended LABS Laboratory Results - last 24 hr 08/01/19 08/01/19 06:20 06:21 Sodium 146 H Potassium 4.9 Chloride 118 H Carbon Dioxide 24 Anion Gap 3 L BUN 30.0 H Creatinine 0.9 Est GFR (CKD-EPI)AfAm 74.04 Est GFR (CKD-EPI)NonAf 63.88 POC Glucometer 291 Random Glucose 315 H Calcium 8.6 Total Bilirubin 0.8 AST 14 L ALT 12 L Alkaline Phosphatase 98 Total Protein 4.1 L Albumin 1.1 L HOSPITAL COURSE: 74 y/o patient with hyperthyroidism, HTN, presented with rectal bleeding earlier this year. Noted to have a rectal mass on colonocscopy and biopsy was consistent with moderately differentiated adenoCA. Also noted to have widely metastatic disease with lung nodules, liver metastases, retroperitoneal adenopathy and adrenal mets. Admitted to the heme/onc service. Per records, pt is to go for hospice. For her metastatic rectal CA, she was given XELOX in 01/21 and had very good response on imaging studies done 05/15/19. She was switched to Irinotecan on 07/11. Presently she is on hospice care and will follow with [facility]. Pt had Ascites since June for which she had a peritoneal pig tail catheter placed. She had paracenetesis x2 with fluid negative for malignant cells but which was rapidly reaccumulating. The patient had her pigtail removed prior to leaving the hospital. Case was discussed with care team including social work, attending, home hospice (by attending). Date of Admission:07/12/19 Date of Discharge: 08/01/19 Minutes to complete discharge: 30 Discharge Summary Problems reviewed: Yes Reason For Visit: RECTAL CANCER Current Active Problems E-coli UTI (Acute) Neutropenia (Acute) Rectal cancer (Acute) Condition: Stable - Instructions Diet, Activity, Other Instructions: You are being transferred to the care of [facility]. Your Hospice care team will assume control of your care including your medications. You may continue your home medications unless you are advised otherwise by your hospice team. You have one new medication. You will need to take morphine 5mg per 5ml solution every 6 hours as needed for pain or discomfort. Referrals: Missy Segura MD [Staff Physician] - Haile Murphy MD [Staff Physician] - Yesenia Cortez MD [Staff Physician] - Disposition: HOME - Home Medications Comprehensive Discharge Medication List: Ambulatory Orders Carvedilol [Coreg -] 25 mg PO BID 01/08/19 Famotidine [Pepcid] 40 mg PO DAILY 01/08/19 Hydrochlorothiazide [Hctz -] 12.5 mg PO DAILY 01/08/19 Methimazole [Tapazole] 5 mg PO BID 01/08/19 Oxybutynin Chloride [Ditropan Xl] 10 mg PO DAILY 01/08/19 Potassium Chloride [Klor-Con M10] 10 meq PO DAILY 01/08/19 Metformin HCl [Glucophage] 500 tablet PO BID 06/26/19 Oxycodone HCl 5 mg PO Q4H PRN #120 tablet MDD 6 08/01/19 This patient is new to me today: No Emergency Visit: No Critical Care patient: No - Discharge Referral Referred to [facility] No ATTENDING PHYSICIAN STATEMENT I saw and evaluated the patient. I reviewed the resident's note and discussed the case with the resident. I agree with the resident's findings and plan as documented. SUBJECTIVE: OBJECTIVE: ASSESSMENT AND PLAN:
[2019-08-01 12:20] VITALS: BP 90/54; PULSE 77; TEMP 97.8
== END 2019-08-01 11:50 | disposition home or self-care (01) | DRG 374 ==
LOC: JONCCHEMO 07:10 → J7W 11:24 → JONCCHEMO 11:24 → J7W 13:23
PROVIDERS: ADMIT Internal Medicine Hematology & Oncology; ATTEND Internal Medicine Hematology & Oncology
PROC: 0W9G3ZX Drainage of Peritoneal Cavity, Percutaneous Approach, Diagnostic (ICD-10-PCS; principal; 2019-07-12)
PROC: 0W9G3ZX Drainage of Peritoneal Cavity, Percutaneous Approach, Diagnostic (ICD-10-PCS; 2019-07-16)
DX: C19 Malignant neoplasm of rectosigmoid junction (principal); D61.810 Antineoplastic chemotherapy induced pancytopenia; C78.00 Secondary malignant neoplasm of unspecified lung; C78.7 Secondary malignant neoplasm of liver and intrahepatic bile duct; C79.70 Secondary malignant neoplasm of unspecified adrenal gland; N39.0 Urinary tract infection, site not specified; K56.609 Unspecified intestinal obstruction, unspecified as to partial versus complete obstruction; R18.0 Malignant ascites; N17.9 Acute kidney failure, unspecified; R18.8 Other ascites; R63.0 Anorexia; E03.9 Hypothyroidism, unspecified; I10 Essential (primary) hypertension; D70.1 Agranulocytosis secondary to cancer chemotherapy; B96.20 Unspecified Escherichia coli [E. coli] as the cause of diseases classified elsewhere; D70.9 Neutropenia, unspecified; E11.65 Type 2 diabetes mellitus with hyperglycemia; E87.6 Hypokalemia; I95.9 Hypotension, unspecified
CPT/HCPCS: 36415; 49406; 71045-TC-FY; 74018-TC-FY; 74177-TC; 76098-TC-FY; 76705-TC; 76775-TC; 76942-TC; 76998-TC; 80048; 80053; 80076; 81003; 82042; 82150; 82436; 82465; 82565; 82945; 82962; 83605; 83615; 83735; 83986; 84133; 84157; 84300; 84439; 84443; 84478; 84481; 85025; 85384; 85610; 85730; 87040; 87070; 87075; 87086; 87102; 87116; 87177; 87186; 87205; 87206; 87209; 87210; 87324; 87449; 87899; 88108; 88305-TC; 88341-TC; 90670; 97116-GP; 97161-GP; A4358; C1729; C1769; J1447; J7030; J9206; Q9967

== ENCOUNTER → 2019-07-25 | Day surgery (SDC) | payer OTHER | END | disposition home or self-care (01) | LOC: JONCCHEMO 07:13 | PROVIDERS: ATTEND Internal Medicine Hematology & Oncology | DX: Z53.8 Procedure and treatment not carried out for other reasons (principal) | CPT/HCPCS: 87070; 87075; 87205; 96365 ==